=== PATIENT | male | born 1950 | race Caucasian/White ===

== ENCOUNTER → 2017-11-03 11:18 | Outpatient (CLI) | payer OTHER, SELFPAY ==
[2017-11-03 16:18] LABS: Thyroid Stim Hormone (TSH) 2.32 uIU/mL (0.358-3.74)
== END ==
PROVIDERS: Family Provider Family Medicine; PCP Family Medicine; Visit Provider Family Medicine
DX: R53.83 Other fatigue (principal)
CPT/HCPCS: 36415; 84443

== ENCOUNTER → 2018-01-11 10:24 | Outpatient (CLI) | payer OTHER, SELFPAY ==
--- NOTE | 2018-01-11 11:47 | NEURO ---
NCS and/or EMG Patient Report Ordering Doctor: Camilo Marie DATE OF SERVICE: 01/11/18 Milan Ramirez is a 67 year old male who presents for electrodiagnostic testing of the upper limbs. He has chief complaint of numbness and tingling in both hands. Electrodiagnostic findings: Median motor nerve demonstrates normal distal latency, amplitude and conduction velocity bilaterally. Normal ulnar motor response bilaterally, including conduction across the elbow. Prolonged median sensory distal latencies noted bilaterally. Prolonged ulnar sensory latency is noted bilaterally. Normal radial sensory responses. Median ulnar F waves are within normal limits. On needle EMG, all muscles tested in the upper limbs show no evidence of denervation with normal motor unit action potentials. Electrodiagnostic impression: This is an abnormal study in the upper limbs 1. Findings demonstrate bilateral median mononeuropathy. This is consistent with a mild bilateral carpal tunnel syndrome. 2. Findings demonstrate bilateral ulnar sensory neuropathy. 3. No electrodiagnostic evidence is noted for cervical radiculopathy. If there are any further questions, please do not hesitate to contact me.
== END ==
PROVIDERS: Family Provider Family Medicine; PCP Family Medicine; Visit Provider Orthopaedic Surgery
DX: R20.2 Paresthesia of skin (principal)
CPT/HCPCS: 95886; 95913

== ENCOUNTER → 2018-02-16 22:31 | Outpatient (CLI) | payer OTHER, SELFPAY | PROVIDERS: Family Provider Family Medicine; PCP Family Medicine; Visit Provider Family Medicine | DX: G47.30 Sleep apnea, unspecified (principal); R06.83 Snoring | CPT/HCPCS: 95810 ==

== ENCOUNTER → 2018-03-16 22:20 | Outpatient (CLI) | payer OTHER, SELFPAY ==
[2018-03-16] MEDS: Zolpidem Tartrate 5 MG Tablet PO (23:30)
== END ==
PROVIDERS: Family Provider Family Medicine; PCP Family Medicine; Visit Provider Family Medicine
DX: G47.33 Obstructive sleep apnea (adult) (pediatric) (principal)
CPT/HCPCS: 95811

== ENCOUNTER → 2018-05-19 10:05 | Outpatient (CLI) | payer OTHER, SELFPAY ==
--- NOTE | 2018-05-19 10:55 | EKG12_ITS ---
Test Reason : PREOP Blood Pressure : / mmHG Vent. Rate : 051 BPM Atrial Rate : 051 BPM P-R Int : 184 ms QRS Dur : 134 ms QT Int : 466 ms P-R-T Axes : 009 019 037 degrees QTc Int : 429 ms Sinus bradycardia Non-specific intra-ventricular conduction block Nonspecific T wave abnormality Abnormal ECG Confirmed by MAE CORLEY, SUMEET ([id number]), staff editor SHAMAR ELMORE ([id number]) on 05/22/2018 2:56:45 PM Referred By: Tc Austin Confirmed By:SUMEET WALL MD
[2018-05-19 11:02] LABS: Hematocrit 49.1 % (40-54); Hemoglobin 16.1 g/dl (13.0-16.5); Mean Corp Hgb Conc 32.8 g/gl (32-36); Mean Corpuscular Hgb 29.9 pg (27.0-32.0); Mean Corpuscular Volume 91.1 fL (80-94); Mean Platelet Vol. 10.3 fl (6.2-12.0); Platelet Count 170 K/mm3 (150-450); RBC Distribution Width CV 15.3 % (11.6-14.6); Red Blood Count 5.39 M/mm3 (4.6-6.2); White Blood Count 6.2 K/mm3 (4.4-11.0)
[2018-05-19 11:04] LABS: Scan Indicated on CBC? Y/N NO
[2018-05-19 11:21] LABS: Anion Gap 9 (5-15); BUN 18 mg/dL (7-18); BUN/Creat Ratio 15.7 RATIO (10-20); Calcium,Total 8.6 mg/dL (8.5-10.1); Chloride 107 mmol/L (98-107); Creatinine, Serum 1.15 mg/dL (0.70-1.30); EST Glomerular Filtration Rate 67 mL/min (>60); Est Glom Filt Rate - Afr Amer 81 mL/min (>60); Glucose 96 mg/dL (74-106); Sodium Level 143 mmol/L (136-145)
== END ==
PROVIDERS: Family Provider Family Medicine; PCP Family Medicine; Referring Provider Physician Assistant Surgical; Visit Provider Physician Assistant Surgical
DX: Z01.818 Encounter for other preprocedural examination (principal); Z01.811 Encounter for preprocedural respiratory examination; I12.9 Hypertensive chronic kidney disease with stage 1 through stage 4 chronic kidney disease, or unspecified chronic kidney disease; N18.3 Chronic kidney disease, stage 3 (moderate); E78.5 Hyperlipidemia, unspecified; E29.1 Testicular hypofunction; M10.9 Gout, unspecified
CPT/HCPCS: 36415; 80048; 85027; 93005

== ENCOUNTER → 2018-07-17 10:29 | Outpatient (CLI) | payer OTHER, SELFPAY ==
[2018-07-17 12:07] LABS: Absolute Lymphocyte Count 1.67 X10^3/ul (0.83-4.51); Absolute Neutrophil Count 3.5 X10^3/uL (2.0-7.7); Basophil# 0.02 X10^3/uL; Basophil% 0.3 % (0-1); Eosinophil# 0.16 X10^3/uL; Eosinophils% 2.7 % (0-5); Hematocrit 51.3 % (40-54); Lymphocyte # 1.67 X10^3/ul (4.0); Lymphocyte % 28.4 % (19-41); Mean Corp Hgb Conc 33.1 g/gl (32-36); Mean Corpuscular Hgb 30.6 pg (27.0-32.0); Mean Corpuscular Volume 92.4 fL (80-94); Mean Platelet Vol. 10.8 fl (6.2-12.0); Monocyte# 0.47 X10^3/uL; Neutrophil # 3.53 X10^3/uL (2.7-7.7); Neutrophil % 60.3 % (47-70); Platelet Count 195 K/mm3 (150-450); RBC Distribution Width CV 15.3 % (11.6-14.6); RBC Distribution Width SD 51.2 fl (35.1-43.9); Red Blood Count 5.55 M/mm3 (4.6-6.2); White Blood Count 5.9 K/mm3 (4.4-11.0)
[2018-07-17 12:18] LABS: POSITIVE COUNT NO; POSITIVE DIFFERENTIAL NO; POSITIVE MORPHOLOGY NO
[2018-07-17 12:23] LABS: ALB/GLOB Ratio 1.2 RATIO (0.9-2.4); AST(SGOT) 14 U/L (15-37); Alanine Aminotransfer ALT/SGPT 26 U/L (16-61); Albumin, Serum 3.8 g/dL (3.2-5.0); Alkaline Phosphatase 74 U/L (45-117); Anion Gap 5 (5-15); BUN 26 mg/dL (7-18); BUN/Creat Ratio 20.2 RATIO (10-20); Calcium,Total 8.1 mg/dL (8.5-10.1); Chloride 107 mmol/L (98-107); Cholesterol 149 mg/dL (200); Creatinine, Serum 1.29 mg/dL (0.70-1.30); EST Glomerular Filtration Rate 59 mL/min (>60); Est Glom Filt Rate - Afr Amer 71 mL/min (>60); Globulin 3.1 g/dL (2.2-4.2); Glucose 108 mg/dL (74-106); High Density Lipoprotein 35 mg/dL; PSA,Total - Annual Screen 1.56 ng/mL (0.00-4.00); Protein, Total 6.9 g/dL (6.4-8.2); Sodium Level 140 mmol/L (136-145); Thyroid Stim Hormone (TSH) 1.46 uIU/mL (0.358-3.74); Triglycerides 213 mg/dL; Uric Acid 7.1 mg/dL (3.5-7.2); Very Low Density Lipoprotein 43 mg/dL (5-40)
[2018-07-20 14:06] LABS: Testosterone, Free 5.79 ng/dL (5.00-21.00)
[2018-07-20 14:50] LABS: Testosterone, % Free 3.18 % (1.50-4.20); Testosterone, Total 182 ng/dL (264-916)
== END ==
PROVIDERS: Family Provider Family Medicine; PCP Family Medicine; Visit Provider Family Medicine
DX: I12.9 Hypertensive chronic kidney disease with stage 1 through stage 4 chronic kidney disease, or unspecified chronic kidney disease (principal); N18.3 Chronic kidney disease, stage 3 (moderate); E29.1 Testicular hypofunction; E78.5 Hyperlipidemia, unspecified; E03.9 Hypothyroidism, unspecified; M10.9 Gout, unspecified; Z51.81 Encounter for therapeutic drug level monitoring
CPT/HCPCS: 36415; 80053; 80061; 84153; 84402; 84403; 84439; 84443; 84550; 85025; G0103

== ENCOUNTER → 2018-09-22 11:02 | Outpatient (CLI) | payer OTHER, SELFPAY ==
[2018-09-22 14:45] LABS: Absolute Lymphocyte Count 1.49 X10^3/ul (0.83-4.51); Absolute Neutrophil Count 3.9 X10^3/uL (2.0-7.7); Basophil# 0.02 X10^3/uL; Basophil% 0.3 % (0-1); Eosinophil# 0.15 X10^3/uL; Eosinophils% 2.5 % (0-5); Hematocrit 53.4 % (40-54); Hemoglobin 17.9 g/dl (13.0-16.5); Lymphocyte # 1.49 X10^3/ul (4.0); Lymphocyte % 24.4 % (19-41); Mean Corp Hgb Conc 33.5 g/gl (32-36); Mean Corpuscular Hgb 30.7 pg (27.0-32.0); Mean Corpuscular Volume 91.6 fL (80-94); Mean Platelet Vol. 10.9 fl (6.2-12.0); Monocyte% 8.2 % (0-10); Neutrophil # 3.94 X10^3/uL (2.7-7.7); Neutrophil % 64.4 % (47-70); Platelet Count 187 K/mm3 (150-450); RBC Distribution Width CV 15.6 % (11.6-14.6); RBC Distribution Width SD 51.4 fl (35.1-43.9); Red Blood Count 5.83 M/mm3 (4.6-6.2); White Blood Count 6.1 K/mm3 (4.4-11.0)
[2018-09-22 14:46] LABS: POSITIVE COUNT NO; POSITIVE DIFFERENTIAL NO; POSITIVE MORPHOLOGY NO
[2018-09-22 15:03] LABS: Uric Acid 7.2 mg/dL (3.5-7.2)
== END ==
PROVIDERS: Family Provider Family Medicine; PCP Family Medicine; Referring Provider Family Medicine; Visit Provider Family Medicine
DX: M10.9 Gout, unspecified (principal); D58.2 Other hemoglobinopathies
CPT/HCPCS: 36415; 84550; 85025

== ENCOUNTER 2019-05-11 13:44 | Observation (INO) | payer MEDICARE, SELFPAY ==
[2019-05-11 13:51] VITALS: BP 134/85; PULSE 65; RESP 17; TEMP 36.4; O2SAT 95; BMI 45.6
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
[2019-05-11] MEDS: HYDROmorphone 1 MG/ML Syringe SC (15:13)
--- NOTE | 2019-05-11 15:42 | ED.VISSUMM ---
- ER Visit Summary Date of Service: 05/11/19 Chief Complaint: Pain History of Present Illness: The patient is a 68 M who presents with right posterior thigh pain. This happened after mechanical fall today. Pain is worse with movement. No other injuries or complaints. He never had anything like this before. Physical Examination: Vital signs unremarkable. Head and neck are atraumatic. Patient has tenderness to his right posterior thigh, primarily the distal half. There is some mild induration, but I cannot appreciate a definite hematoma or other abnormality. Compartments are soft. Range of motion is intact. He is neurovascular intact distally. Skin appears unremarkable. Test Results: Femur x-rays negative. Emergency Department Course and Treatment: I suspect the patient has a hamstring injury. On reevaluation, the patient was having increasing pain. His right hamstring region seem to be more tender and swollen. I was concerned for hematoma or compartment syndrome. I discussed with orthopedics who advised CT. I checked blood work and a CT. The CT was reviewed by Dr. Gonzalez and by the radiologist. They did not notice anything like a hematoma or any other concerning findings. On reevaluation after 2 doses of Dilaudid, the patient felt better. He would like to try to ambulate. He failed ambulation testing. He was unable to ambulate with help and a walker. He is unsafe to go home. I will contact the hospitalist for further care. Treatment Plan: As above Disposition: Admit Impression: 1. Right hamstring injury This note was generated with [employer] dictation software. It may contain incorrect words, spelling, and punctuation that were not noted in review of the chart prior to signing ED Disposition - Plan for ED Patient: Instructions: MUSCLE STRAIN, Extremity Referrals: Dar Gonzalez DO [STAFF PHYSICIAN] -
--- NOTE | 2019-05-11 15:51 | ED.DEP ---
ED Disposition - Plan for ED Patient: Instructions: MUSCLE STRAIN, Extremity Prescriptions: Oxycodone HCl/Acetaminophen [Percocet 5/325] 1 tab PO Q6H PRN PRN 3 Days #12 tab PRN Reason: Pain Prescription Printed Referrals: Dar Gonzalez DO [STAFF PHYSICIAN] -
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
[2019-05-11 16:29] LABS: Absolute Lymphocyte Count 1.01 X10^3/uL (0.83-4.51); Absolute Neutrophil Count 9.4 X10^3/uL (2.0-7.7); Basophil# 0.04 X10^3/uL; Basophil% 0.4 % (0-1); Eosinophil# 0.06 X10^3/uL; Eosinophils% 0.5 % (0-5); Hematocrit 54.1 % (40-54); Hemoglobin 17.8 g/dL (13.0-16.5); Lymphocyte # 1.01 X10^3/ul (4.0); Mean Corp Hgb Conc 32.9 g/dL (32-36); Mean Corpuscular Hgb 30.3 pg (27.0-32.0); Mean Platelet Vol. 10.1 fl (6.2-12.0); Monocyte# 0.63 X10^3/uL; Monocyte% 5.6 % (0-10); NRBC Flagged by Analyzer 0 % (0-5); Neutrophil # 9.42 X10^3/uL (2.7-7.7); Neutrophil % 84.1 % (47-70); Platelet Count 178 K/mm3 (150-450); RBC Distribution Width CV 14.6 % (11.6-14.6); RBC Distribution Width SD 48.9 fl (35.1-43.9); Red Blood Count 5.88 M/mm3 (4.6-6.2); White Blood Count 11.2 K/mm3 (4.4-11.0)
[2019-05-11] MEDS: HYDROmorphone 1 MG/ML Syringe IV (16:46)
[2019-05-11 16:47] VITALS: BP 124/71; PULSE 55; RESP 20; O2SAT 96
[2019-05-11 17:04] LABS: Anion Gap 2 (5-15); BUN 15 mg/dL (7-18); BUN/Creat Ratio 12.1 RATIO (10-20); Calcium,Total 8.4 mg/dL (8.5-10.1); Chloride 108 mmol/L (98-107); Creatinine, Serum 1.24 mg/dL (0.70-1.30); EST Glomerular Filtration Rate 61 mL/min (>60); Est Glom Filt Rate - Afr Amer 74 mL/min (>60); Estimated Creatinine Clearance 53.63 ml/min; Glucose 101 mg/dL (74-106); Potassium 4.2 mmol/L (3.5-5.1); Sodium Level 139 mmol/L (136-145)
[2019-05-11 17:09] LABS: CPK Total, Creatine Kinase 446 U/L (39-308)
[2019-05-11 19:03] VITALS: BP 112/67; PULSE 56; RESP 17; O2SAT 96
[2019-05-11 19:09] VITALS: BMI 45.6
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
[2019-05-11 19:57] VITALS: BMI 47.0
[2019-05-11 19:59] VITALS: BP 161/80; PULSE 70; RESP 16; TEMP 36.5; O2SAT 95
[2019-05-11 21:19] VITALS: RESP 12
[2019-05-11 21:20] VITALS: O2SAT 94
--- NOTE | 2019-05-11 21:21 | CPS ---
Patient stated that he does not wear oxygen at night with BIPAP.
[2019-05-11] MEDS: 0.9% Normal Saline 1,000 ML 75 ML IV (21:32)
[2019-05-11] MEDS: cycloBENZAPRine HCl 10 MG Tablet 5 MG PO (21:32)
--- NOTE | 2019-05-11 23:02 | CPS ---
pt did not want to go on at this time-nurse aware
[2019-05-11] MEDS: Acetaminophen 325 MG Tablet 650 MG PO (23:25)
[2019-05-11] MEDS: 0.9% NaCl Peripheral Flush Adult/Peds IV (23:25)
[2019-05-12] VITALS (8 sets, daily range): BP systolic 127–139; BP diastolic 74–84; PULSE 61–87; RESP 12–28; TEMP 36.3–37.3; O2SAT 90–95
[2019-05-12] MEDS: cycloBENZAPRine HCl 10 MG Tablet 5 MG PO ×3 (06:12→21:22)
[2019-05-12] MEDS: Levothyroxine 50 MCG Tablet PO (06:13)
[2019-05-12] MEDS: Acetaminophen 325 MG Tablet 650 MG PO ×3 (06:13→18:45)
[2019-05-12] MEDS: oxyCODONE 5 MG Tablet PO ×3 (06:16→17:29)
[2019-05-12 07:00] LABS: CPK Total, Creatine Kinase 926 U/L (39-308)
[2019-05-12] MEDS: Morphine 2 MG/ML Syringe IV (08:30)
[2019-05-12] MEDS: Lisinopril 20 MG Tablet PO (08:30)
[2019-05-12] MEDS: hydroCHLOROthiazide 12.5mg 12.5 MG PO (08:30)
[2019-05-12] MEDS: Citalopram 20 MG Tablet PO (08:30)
[2019-05-12] MEDS: Aspirin 81 MG TAB.CHEW PO (08:30)
[2019-05-12] MEDS: Enoxaparin 40 MG/0.4 ML Syringe SC (08:30)
[2019-05-12] MEDS: 0.9% NaCl Peripheral Flush Adult/Peds IV ×2 (08:31→17:30)
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
--- NOTE | 2019-05-12 15:53 | PCM.HOSP.N ---
Hospitalist Note MRI RLE obtained w/ read reviewed with avulsion of the hamstring musculature from the ischium with extensive hematoma formation. Patient with stable appearing size RLE per discussion with staff. Pain controlled unless active. No CBC, BMP today, given injury with hematomas will discontinue ASA, reassess Hgb levels, obtain repeat AM TKC, add back IVFs given stable pulmonary status and rising TCK level. Discussed case and consulted Dr. Gonzalez will evaluate patient in the AM.
[2019-05-12 16:42] LABS: Absolute Lymphocyte Count 1.55 X10^3/uL (0.83-4.51); Basophil# 0.04 X10^3/uL; Basophil% 0.5 % (0-1); Eosinophil# 0.17 X10^3/uL; Hematocrit 49.6 % (40-54); Hemoglobin 16.1 g/dL (13.0-16.5); Lymphocyte # 1.55 X10^3/ul (4.0); Lymphocyte % 17.9 % (19-41); Mean Corp Hgb Conc 32.5 g/dL (32-36); Mean Corpuscular Volume 92.5 fL (80-94); Mean Platelet Vol. 9.9 fl (6.2-12.0); Monocyte# 0.88 X10^3/uL; Monocyte% 10.2 % (0-10); NRBC Flagged by Analyzer 0 % (0-5); Neutrophil # 5.98 X10^3/uL (2.7-7.7); Neutrophil % 68.9 % (47-70); Platelet Count 167 K/mm3 (150-450); RBC Distribution Width CV 14.6 % (11.6-14.6); RBC Distribution Width SD 49.8 fl (35.1-43.9); Red Blood Count 5.36 M/mm3 (4.6-6.2); White Blood Count 8.7 K/mm3 (4.4-11.0)
[2019-05-12 16:50] LABS: Anion Gap 4 (5-15); BUN 17 mg/dL (7-18); Chloride 109 mmol/L (98-107); Creatinine, Serum 1.21 mg/dL (0.70-1.30); EST Glomerular Filtration Rate 63 mL/min (>60); Est Glom Filt Rate - Afr Amer 76 mL/min (>60); Estimated Creatinine Clearance 54.96 ml/min; Glucose 90 mg/dL (74-106); Potassium 3.8 mmol/L (3.5-5.1); Sodium Level 139 mmol/L (136-145)
[2019-05-12] MEDS: 0.9% Normal Saline 1,000 ML 125 ML IV (17:29)
[2019-05-13] VITALS (8 sets, daily range): BP systolic 130–142; BP diastolic 70–99; PULSE 71–103; RESP 12–28; TEMP 36.9–37.2; O2SAT 93–95
[2019-05-13] MEDS: Acetaminophen 325 MG Tablet 650 MG PO ×5 (00:08→23:40)
[2019-05-13] MEDS: Morphine 2 MG/ML Syringe IV (03:40)
[2019-05-13] MEDS: 0.9% Normal Saline 1,000 ML 125 ML IV (03:43)
[2019-05-13] MEDS: Levothyroxine 50 MCG Tablet PO (05:59)
[2019-05-13] MEDS: cycloBENZAPRine HCl 10 MG Tablet 5 MG PO ×3 (06:01→20:18)
[2019-05-13 06:20] LABS: Absolute Lymphocyte Count 1.34 X10^3/uL (0.83-4.51); Absolute Neutrophil Count 6.7 X10^3/uL (2.0-7.7); Basophil# 0.04 X10^3/uL; Basophil% 0.4 % (0-1); Eosinophil# 0.27 X10^3/uL; Eosinophils% 2.9 % (0-5); Hematocrit 47.9 % (40-54); Hemoglobin 15.4 g/dL (13.0-16.5); Lymphocyte # 1.34 X10^3/ul (4.0); Lymphocyte % 14.6 % (19-41); Mean Corp Hgb Conc 32.2 g/dL (32-36); Mean Corpuscular Hgb 29.7 pg (27.0-32.0); Mean Corpuscular Volume 92.5 fL (80-94); Mean Platelet Vol. 10.6 fl (6.2-12.0); Monocyte# 0.81 X10^3/uL; Monocyte% 8.8 % (0-10); NRBC Flagged by Analyzer 0 % (0-5); Neutrophil # 6.68 X10^3/uL (2.7-7.7); Neutrophil % 72.6 % (47-70); Platelet Count 177 K/mm3 (150-450); RBC Distribution Width CV 14.8 % (11.6-14.6); RBC Distribution Width SD 50.5 fl (35.1-43.9); Red Blood Count 5.18 M/mm3 (4.6-6.2); White Blood Count 9.2 K/mm3 (4.4-11.0)
[2019-05-13 06:54] LABS: Anion Gap 8 (5-15); BUN 17 mg/dL (7-18); BUN/Creat Ratio 13.7 RATIO (10-20); CPK Total, Creatine Kinase 728 U/L (39-308); Calcium,Total 7.8 mg/dL (8.5-10.1); Chloride 107 mmol/L (98-107); Creatinine, Serum 1.24 mg/dL (0.70-1.30); EST Glomerular Filtration Rate 61 mL/min (>60); Est Glom Filt Rate - Afr Amer 74 mL/min (>60); Estimated Creatinine Clearance 53.63 ml/min; Glucose 93 mg/dL (74-106); Potassium 4.2 mmol/L (3.5-5.1); Sodium Level 141 mmol/L (136-145)
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
[2019-05-13] MEDS: hydroCHLOROthiazide 12.5mg 12.5 MG PO (11:03)
[2019-05-13] MEDS: Citalopram 20 MG Tablet PO (11:03)
[2019-05-13] MEDS: Lisinopril 20 MG Tablet PO (11:03)
--- NOTE | 2019-05-13 11:05 | NURSING ---
Pt states he goes by Khanh
[2019-05-14 02:59] VITALS: BP 141/68; PULSE 69; RESP 20; TEMP 36.9; O2SAT 95
[2019-05-14] MEDS: oxyCODONE 5 MG Tablet PO (03:02)
[2019-05-14 03:07] VITALS: RESP 20; O2SAT 95
[2019-05-14 05:50] LABS: Absolute Lymphocyte Count 1.72 X10^3/uL (0.83-4.51); Absolute Neutrophil Count 6.1 X10^3/uL (2.0-7.7); Basophil# 0.05 X10^3/uL; Basophil% 0.6 % (0-1); Eosinophil# 0.34 X10^3/uL; Eosinophils% 3.7 % (0-5); Hematocrit 46.7 % (40-54); Hemoglobin 15.3 g/dL (13.0-16.5); Lymphocyte # 1.72 X10^3/ul (4.0); Lymphocyte % 18.9 % (19-41); Mean Corp Hgb Conc 32.8 g/dL (32-36); Mean Corpuscular Hgb 30.4 pg (27.0-32.0); Mean Corpuscular Volume 92.7 fL (80-94); Mean Platelet Vol. 10.1 fl (6.2-12.0); Monocyte# 0.85 X10^3/uL; Monocyte% 9.4 % (0-10); NRBC Flagged by Analyzer 0 % (0-5); Neutrophil # 6.06 X10^3/uL (2.7-7.7); Neutrophil % 66.6 % (47-70); Platelet Count 186 K/mm3 (150-450); RBC Distribution Width CV 14.7 % (11.6-14.6); RBC Distribution Width SD 49.7 fl (35.1-43.9); Red Blood Count 5.04 M/mm3 (4.6-6.2); White Blood Count 9.1 K/mm3 (4.4-11.0)
[2019-05-14 06:20] LABS: Anion Gap 7 (5-15); BUN 15 mg/dL (7-18); BUN/Creat Ratio 12.1 RATIO (10-20); CPK Total, Creatine Kinase 728 U/L (39-308); Calcium,Total 8.2 mg/dL (8.5-10.1); Chloride 107 mmol/L (98-107); Creatinine, Serum 1.24 mg/dL (0.70-1.30); EST Glomerular Filtration Rate 61 mL/min (>60); Est Glom Filt Rate - Afr Amer 74 mL/min (>60); Estimated Creatinine Clearance 53.63 ml/min; Glucose 94 mg/dL (74-106); Potassium 4.1 mmol/L (3.5-5.1); Sodium Level 143 mmol/L (136-145)
[2019-05-14] MEDS: cycloBENZAPRine HCl 10 MG Tablet 5 MG PO ×3 (06:37→21:58)
[2019-05-14] MEDS: Levothyroxine 50 MCG Tablet PO (06:37)
[2019-05-14] MEDS: Acetaminophen 325 MG Tablet 650 MG PO (06:37)
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
[2019-05-14] MEDS: Lisinopril 20 MG Tablet PO (10:06)
[2019-05-14] MEDS: Citalopram 20 MG Tablet PO (10:06)
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
--- NOTE | 2019-05-14 12:35 | PCM.DC ---
- Discharge Diagnoses Current Active Problems: Current Active and Chronic Problems Hematoma of right lower extremity (Acute) Avulsion of right hamstring muscle (Acute) Intractable pain (Acute) HTN (hypertension) (Chronic) You will use the following diet at home:: Other - Resume previous diet Your food should be the consistency of: Regular Your liquids should be the consistency of: Regular/Thin Discharge Activity: - - Activity as tolerated Call your doctor if you observe: Fever of 101 or Higher, Shortness of breath, Dizziness, Fainting spells, Swelling in the ankles, Chest pain, Uncontrolled pain Instructions: MUSCLE STRAIN, Extremity Additional Instructions: Narcotics cause you to be constipated so I suggest you take Miralax, Metamucil or Citracel daily until you are off narcotics. You need to get up from the chair and ambulate every 1 hour during the day...if you do not the stiffness with get worse and the pain will ultimately be worse. If you need more medication for pain you can call Dr. Palomo for a prescription. Pending Tests on Discharge: none Allergies/Adverse Reactions: Allergies No Known Allergies Allergy (Verified 10/14/15 12:10) Medications to take at Discharge Pravastatin Sodium 40 mg PO DAILY 05/03/14 Lisinopril/Hydrochlorothiazide [Zestoretic 20-12.5 mg Tablet] 1 each PO DAILY 10/07/15 Aspirin [Aspirin, Baby] 81 mg PO DAILY 05/11/19 Citalopram [Celexa] 20 mg PO DAILY 05/11/19 Levothyroxine [Synthroid] 50 mcg PO DAILY 05/11/19 Acetaminophen [Tylenol] 1,000 mg PO Q8 tablet 05/14/19 Oxycodone [Oxyir] 10 mg PO Q4H PRN PRN 7 Days #60 tablet 05/14/19 cycloBENZAPRine HCl [Flexeril] 5 mg PO Q6H PRN PRN #30 tab 05/14/19 The following prescriptions were given: cycloBENZAPRine HCl [Flexeril] 5 mg PO Q6H PRN PRN #30 tab PRN Reason: Muscle Spasm Transmission Status: [facility] Oxycodone [Oxyir] 10 mg PO Q4H PRN PRN 7 Days #60 tablet PRN Reason: Pain Transmission Status: Sent to [facility] Orders to be completed after discharge: Ari Location: None Selected Primary Care Physician: Jay Palomo DO [Primary Care Provider] - Dar Gonzalez DO [STAFF PHYSICIAN] - Please follow up with your Primary Care Physician in: 5 days Test Results: Test results from this visit will be discussed in further detail at your follow-up appointment, if applicable. Proposed Discharge Date: 05/14/19
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
[2019-05-14] MEDS: oxyCODONE 5 MG Tablet 10 MG PO (12:50)
--- NOTE | 2019-05-14 13:42 | CASEMGMT ---
MICA WILEY received script for outpatient therapy. Script placed with discharge instructions and nurse notified. RN SAURABH updated patient regarding script for PT/OT and can make appointment with outpatient therapy of choice.
[2019-05-14] MEDS: Acetaminophen 500 MG Tablet 1000 MG PO ×2 (15:26→21:57)
[2019-05-14] MEDS: Polyethylene Glycol 3350 17 GM PACKET PO (15:28)
[2019-05-14 15:33] VITALS: BP 146/88; PULSE 75; RESP 16; TEMP 36.6; O2SAT 95
--- NOTE | 2019-05-14 15:41 | CHAPLAIN ---
Type of Pastoral Visit _x__ Initial Visit ___ Follow-up Visit ___ On-call Visit ___ General Patient Visit ___ Spiritual Assessment ___ Family Conference ___ Bereavement ___ Rapid Response ___ Code Blue ___ Other (describe below) Pastoral Care Referral From _x__ Patient ___ Family ___ Nurse ___ Physician ___ Field Marketing Coordinator ___ Traffic Control Signaler ___ Other (describe below) Sacrament/Intervention _x__ Active listening ___ Anointing ___ Yazidi ___ Bereavement ___ Communion ___ Elsa exploration ___ _x__ Life review _x__ Prayer ___ Reconciliation ___ Sacrament of Sick _x__ Supportive presence ___ Wedding ___ Other (describe below) Pastoral Comments
--- NOTE | 2019-05-14 16:52 | CASEMGMT ---
Case Management Progress Note: SCOTT form explained and reviewed with patient in regards to his treatment. Notified and aware that Outpatient billing is determined by his insurance and status during hospital stay is reviewed for changes in his condition that may warrant Inpatient stay. Denies any questions/concerns. Signed copy placed in patient chart, copy given to patient. Provided patient with a list of [facility]-Network SNF for [facility]. States first preference is [facility]. Does not have a second preference at this time and will look over list further to determine second choice if first choice cannot take him. Side Panel Hanger Mackenzie Decker updated and made aware. Deneen, MICACM
--- NOTE | 2019-05-14 17:14 | CASEMGMT ---
Social Work Note RN updated this worker that pt feels he is not able to discharge home and would like SNF placement. RN SAURABH Macdonald spoke with pt regarding SNF and pt's first choice is TCU. SW called referral line and left message regarding referral. Plan: SNF pending acceptance and pre-cert Mackenzie Vasquez [employer] ROLL COVERER, DIRECTOR [employer]
[2019-05-14] MEDS: Lactated Ringers 1,000 ML 125 ML IV (17:57)
[2019-05-14 21:36] VITALS: BP 154/82; PULSE 67; RESP 24; TEMP 37.2; O2SAT 94
[2019-05-14 21:45] VITALS: PULSE 64
--- NOTE | 2019-05-14 21:56 | NURSING ---
Pt refuses to have bed exit on since he is sitting at the bed and using urinal throughout the night.
[2019-05-15 00:25] VITALS: PULSE 68; RESP 12; RESP 21; O2SAT 93
[2019-05-15] MEDS: Lactated Ringers 1,000 ML 125 ML IV (02:00)
[2019-05-15 02:56] VITALS: PULSE 72; RESP 12; RESP 31; O2SAT 94
[2019-05-15 03:00] VITALS: BP 143/87; PULSE 66; RESP 20; TEMP 36.8; O2SAT 93
[2019-05-15 05:37] VITALS: PULSE 73; RESP 12; RESP 32; O2SAT 93
[2019-05-15 06:05] LABS: ALB/GLOB Ratio 0.9 RATIO (0.9-2.4); AST(SGOT) 27 U/L (15-37); Alanine Aminotransfer ALT/SGPT 19 U/L (16-61); Albumin, Serum 2.9 g/dL (3.2-5.0); Alkaline Phosphatase 64 U/L (45-117); Anion Gap 7 (5-15); BUN 15 mg/dL (7-18); BUN/Creat Ratio 13.3 RATIO (10-20); CPK Total, Creatine Kinase 546 U/L (39-308); Calcium,Total 8.3 mg/dL (8.5-10.1); Chloride 105 mmol/L (98-107); Creatinine, Serum 1.13 mg/dL (0.70-1.30); EST Glomerular Filtration Rate 68 mL/min (>60); Est Glom Filt Rate - Afr Amer 82 mL/min (>60); Estimated Creatinine Clearance 58.85 ml/min; Globulin 3.2 g/dL (2.2-4.2); Glucose 98 mg/dL (74-106); Phosphorus 2.9 mg/dL (2.5-4.9); Potassium 4.1 mmol/L (3.5-5.1); Protein, Total 6.1 g/dL (6.4-8.2); Sodium Level 141 mmol/L (136-145)
[2019-05-15] MEDS: Acetaminophen 500 MG Tablet 1000 MG PO ×2 (06:08→14:38)
[2019-05-15] MEDS: cycloBENZAPRine HCl 10 MG Tablet 5 MG PO ×2 (06:08→14:38)
[2019-05-15] MEDS: Levothyroxine 50 MCG Tablet PO (06:08)
[2019-05-15 08:20] VITALS: BP 161/93; PULSE 55; RESP 18; TEMP 36.6; O2SAT 93
[2019-05-15] MEDS: Lisinopril 20 MG Tablet PO (08:25)
[2019-05-15] MEDS: Citalopram 20 MG Tablet PO (08:25)
[2019-05-15] MEDS: Polyethylene Glycol 3350 17 GM PACKET PO (08:25)
--- NOTE | 2019-05-15 10:43 | CASEMGMT ---
Addendum entered by Mackenzie Vasquez 05/15/19 15:31: CINDY received call from Rosario in TCU who states pre-cert has been obtained and pt can discharge to TCU today. Physician updated. SW updated pt and pt's on approval to go to TCU and discharge today. Plan: TCU today HERMILA Barragan Addendum entered by Mackenzie Vasquez 05/15/19 11:12: CINDY received call from Rosario in TCU stating she does have beds available and is able to accept pt. CINDY informed Rosario that pt is in observation and because he is in observation, this worker doesn't have to submit for LOC and that TCU just needs to submit for pre-cert. Rosario states she will submit for pre-cert. CINDY updated pt on acceptance to TCU pending pre-cert. Pt states understanding. Plan: TCU pending pre-cert HERMILA Barragan Original Note: Social Work Note CINDY received message from Nohemi with TCU stating she is checking on beds and will let this worker know when she knows about bed availability on TCU. Plan: SNF pending acceptance and pre-cert HERMILA Barragan
[2019-05-15 14:40] VITALS: BP 142/87; PULSE 69; RESP 18; TEMP 36.9; O2SAT 97
[2019-05-15] MEDS: oxyCODONE 5 MG Tablet 10 MG PO (15:02)
--- NOTE | 2019-05-15 15:38 | PCM.TXEXTCAR ---
- Diet 05/11/19 20:11 Diet: Regular Diet Food consistency:: Regular Liquid Consistency:: Regular/Thin Is pt able to select menu?: Yes - Routine Orders/Code Status Enema Type: Fleetz Enema Frequency: Daily PRN Suppository Type: Dulcolax 10mg Suppository Frequency: Daily PRN O2 Liters per Minute: 1-2 O2 Frequency: PRN Keep PO Greater than or Equal to (%): 90 Code Status: Full Code - Wound(s) left leg Wound Type: Abrasion - Therapies Weight Bearing: Weight bearing as tolerated Extremity Affected:: Right Lower Physical Therapy: Eval and Treat Occupational Therapy: Eval and Treat - Problem/Diagnosis (1) Traumatic rhabdomyolysis Status: Acute Comment: mild Current Visit: Yes (2) Morbid (severe) obesity due to excess calories Status: Chronic Current Visit: Yes (3) Hyperlipidemia Status: Chronic Current Visit: Yes (4) Hypothyroidism Status: Chronic Current Visit: Yes (5) Chronic renal failure, stage 2 (mild) Status: Chronic Current Visit: Yes (6) Obstructive sleep apnea Status: Chronic Current Visit: Yes (7) Anxiety and depression Status: Chronic Current Visit: Yes (8) Dehydration Status: Acute Current Visit: Yes (9) Intractable pain Status: Acute Current Visit: Yes (10) HTN (hypertension) Status: Chronic Current Visit: Yes (11) Avulsion of right hamstring muscle Status: Acute Comment: Traumatic Current Visit: No (12) Hematoma of right lower extremity Status: Acute Current Visit: No - Allergies/Procedures Done in Hospital Allergies/Adverse Reactions: Allergies No Known Allergies Allergy (Verified 10/14/15 12:10) Procedures: None - Type of Care/Length of Stay Estimated LOS: Convalescent Care Less Than 30 days Type of Care Needed: Skilled Rehab Potential: Good Prognosis: Good - Additional Orders/Day of Discharge H&P will serve as current which was dated: 05/11/19 Day of Discharge: 05/15/19 - Follow Up Care Primary Care Physician: Dar Gonzalez DO [STAFF PHYSICIAN] - Jay Palomo DO [Primary Care Provider] - Please follow up with your Primary Care Physician in: Following discharge from TCU
--- NOTE | 2019-05-15 16:08 | NURSING ---
report given to MICA Cramer on TCU for discharge.
== END 2019-05-15 17:50 | disposition skilled nursing facility (03) ==
LOC: ED 14:56 → MS3 19:29
PROVIDERS: Family Medicine; Admitting Provider Hospitalist; Emergency Provider Emergency Medicine; Family Provider Family Medicine; PCP Family Medicine; Visit Provider Internal Medicine
DX: T79.6XXA Traumatic ischemia of muscle, initial encounter (principal); S76.891A Other injury of other specified muscles, fascia and tendons at thigh level, right thigh, initial encounter; V00.831A Fall from motorized mobility scooter, initial encounter; Y93.89 Activity, other specified; Y92.89 Other specified places as the place of occurrence of the external cause; E66.01 Morbid (severe) obesity due to excess calories; G47.33 Obstructive sleep apnea (adult) (pediatric); I12.9 Hypertensive chronic kidney disease with stage 1 through stage 4 chronic kidney disease, or unspecified chronic kidney disease; N18.2 Chronic kidney disease, stage 2 (mild); E03.9 Hypothyroidism, unspecified; F41.9 Anxiety disorder, unspecified; F32.9 Major depressive disorder, single episode, unspecified; Z68.42 Body mass index [BMI] 45.0-49.9, adult; Z71.3 Dietary counseling and surveillance; Z79.899 Other long term (current) drug therapy; Z79.82 Long term (current) use of aspirin; Z87.891 Personal history of nicotine dependence; E86.0 Dehydration
CPT/HCPCS: 36415; 73552; 73701; 73718; 80048; 80053; 82550; 83735; 84100; 85025; 94002; 94003; 96361; 96372; 96374; 96375; 96376; 97110; 97116; 97162; 97165; 97530; 99218; 99285; J7030; J7120; Q9967; A4216; G0378

== ENCOUNTER 2019-05-15 18:26 | Inpatient (IN) | payer MEDICARE, SELFPAY ==
[2019-05-15 18:26] VITALS: BMI 45.6
[2019-05-15 18:29] VITALS: BP 167/88; PULSE 75; RESP 20; TEMP 36.3; O2SAT 93
[2019-05-15 20:01] VITALS: PULSE 61; O2SAT 93
[2019-05-15 20:17] VITALS: BMI 47.4
[2019-05-15 20:21] VITALS: BMI 47.0
[2019-05-15] MEDS: Acetaminophen 500 MG Tablet 1000 MG PO (21:06)
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
[2019-05-16 00:30] VITALS: PULSE 68; RESP 12; RESP 32; O2SAT 93
[2019-05-16 03:30] VITALS: PULSE 70; RESP 12; RESP 28; O2SAT 93
[2019-05-16 05:56] LABS: Absolute Lymphocyte Count 1.27 X10^3/uL (0.83-4.51); Absolute Neutrophil Count 5.9 X10^3/uL (2.0-7.7); Basophil# 0.05 X10^3/uL; Basophil% 0.6 % (0-1); Eosinophil# 0.27 X10^3/uL; Eosinophils% 3.3 % (0-5); Hematocrit 46.4 % (40-54); Hemoglobin 15.1 g/dL (13.0-16.5); Lymphocyte # 1.27 X10^3/ul (4.0); Lymphocyte % 15.5 % (19-41); Mean Corp Hgb Conc 32.5 g/dL (32-36); Mean Corpuscular Hgb 30.1 pg (27.0-32.0); Mean Corpuscular Volume 92.6 fL (80-94); Mean Platelet Vol. 9.8 fl (6.2-12.0); Monocyte# 0.69 X10^3/uL; Monocyte% 8.4 % (0-10); NRBC Flagged by Analyzer 0 % (0-5); Neutrophil # 5.85 X10^3/uL (2.7-7.7); Neutrophil % 71.7 % (47-70); Platelet Count 207 K/mm3 (150-450); RBC Distribution Width CV 14.9 % (11.6-14.6); RBC Distribution Width SD 50.4 fl (35.1-43.9); Red Blood Count 5.01 M/mm3 (4.6-6.2); White Blood Count 8.2 K/mm3 (4.4-11.0)
[2019-05-16] MEDS: Polyethylene Glycol 3350 17 GM PACKET PO (06:15)
[2019-05-16] MEDS: Pravastatin 40 MG Tablet PO (06:15)
[2019-05-16] MEDS: Citalopram 20 MG Tablet PO (06:15)
[2019-05-16] MEDS: Acetaminophen 500 MG Tablet 1000 MG PO ×3 (06:15→20:59)
[2019-05-16] MEDS: Lisinopril 20 MG Tablet PO ×2 (06:15→17:30)
[2019-05-16] MEDS: Bisacodyl 5 MG Tablet 10 MG PO (06:15)
[2019-05-16] MEDS: Levothyroxine 50 MCG Tablet PO (06:15)
[2019-05-16 06:16] LABS: Anion Gap 5 (5-15); BUN 14 mg/dL (7-18); Calcium,Total 8.5 mg/dL (8.5-10.1); Chloride 104 mmol/L (98-107); Creatinine, Serum 1.17 mg/dL (0.70-1.30); EST Glomerular Filtration Rate 65 mL/min (>60); Est Glom Filt Rate - Afr Amer 79 mL/min (>60); Estimated Creatinine Clearance 56.84 ml/min; Glucose 95 mg/dL (74-106); Potassium 3.8 mmol/L (3.5-5.1); Sodium Level 140 mmol/L (136-145)
[2019-05-16 07:15] VITALS: O2SAT 94
[2019-05-16] MEDS: oxyCODONE 5 MG Tablet 10 MG PO ×3 (09:55→20:08)
[2019-05-16] MEDS: Aspirin 81 MG TAB.CHEW PO (09:56)
--- NOTE | 2019-05-16 10:00 | NURSING ---
New order per Dr. Sahu for magnesium citrate x1 dose now. Per pt request he would like to take after his therapy this afternoon d/t side effects medication may have. Ciarra NINO notified of pts request.
[2019-05-16] MEDS: Tuberculin,Purif.prot.deriv. 50 TU/ML Vial 5 ML ID (10:31)
--- NOTE | 2019-05-16 14:55 | PHA.CONS_ITS ---
<Linette Castellano - Last Filed: 05/16/19 14:55> Progress Note - Pharmacy Subjective: TCU Admission Objective: Allergies No Known Allergies Allergy (Verified 10/14/15 12:10) Current Medications Generic Name Dose Route Start Last Admin Trade Name Freq PRN Reason Stop Dose Admin Acetaminophen 1,000 mg 05/15/19 22:00 05/16/19 14:06 Tylenol PO 1,000 mg Q8 JAYMIE Administration Aspirin 81 mg 05/16/19 08:00 05/16/19 09:56 Aspirin, Baby PO 81 mg DAILY@0800 JAYMIE Administration Bisacodyl 10 mg 05/16/19 06:00 05/16/19 06:15 Dulcolax PO 10 mg DAILY JAYMIE Administration Citalopram Hydrobromide 20 mg 05/16/19 06:00 05/16/19 06:15 Celexa PO 20 mg DAILY JAYMIE Administration Cyclobenzaprine HCl 5 mg 05/15/19 18:53 Cyclobenzaprine Hcl PO Q6H PRN PRN MUSCLE SPASM Levothyroxine Sodium 50 mcg 05/16/19 06:00 05/16/19 06:15 Synthroid PO 50 mcg DAILY JAYMIE Administration Lisinopril 20 mg 05/16/19 06:00 05/16/19 06:15 Zestril PO 20 mg BID JAYMIE Administration Oxycodone HCl 10 mg 05/15/19 18:53 05/16/19 14:07 Oxyir PO 10 mg Q4H PRN PRN Administration Pain Score 1-10/10 Polyethylene Glycol 17 gm 05/16/19 06:00 05/16/19 06:15 Miralax PO 17 gm DAILY JAYMIE Administration Pravastatin Sodium 40 mg 05/16/19 06:00 05/16/19 06:15 Pravachol PO 40 mg DAILY [facility] Administration Senna/Docusate Sodium 2 tablet 05/15/19 18:53 Senokot-S, Myla-Colace PO BID PRN PRN Constipation Tuberculin PPD 5 tu 05/23/19 10:00 Tubersol, Aplisol, Ppd ID 05/23/19 10:01 X1 ONE Problem List Debility (Acute) Fall (Acute) Sleep apnea (Chronic) Rhabdomyolysis (Chronic) Vital Signs Temp Pulse Resp BP Pulse Ox 97.4 F L 70 28 H 167/88 H 94 05/15/19 18:29 09/25/19 03:30 05/16/19 03:30 05/15/19 18:29 05/16/19 07:15 Oxygen Delivery Method Room Air Weight: 141.4 kg Body Mass Index (BMI) 47.4 Sodium 140 mmol/L (136-145) 05/16/19 05:15 Potassium 3.8 mmol/L (3.5-5.1) 05/16/19 05:15 Chloride 104 mmol/L (98-107) 05/16/19 05:15 Carbon Dioxide 31.0 mmol/L (21.0-32.0) 05/16/19 05:15 Anion Gap 5 (5-15) 05/16/19 05:15 BUN 14 mg/dL (7-18) 05/16/19 05:15 Creatinine 1.17 mg/dL (0.70-1.30) 05/16/19 05:15 Est GFR (MDRD) Af Amer 79 mL/min (>60) 05/16/19 05:15 Est GFR (MDRD) Non-Af 65 mL/min (>60) 05/16/19 05:15 BUN/Creatinine Ratio 12.0 RATIO (10-20) 05/16/19 05:15 Glucose 95 mg/dL (74-106) 05/16/19 05:15 Assessment/Plan: 1. Pain: acetaminophen 1000mg PO Q8H and oxycodone 10mg PO Q4H PRN pain (1- 10/10). Please continue to monitor for increased pain, constipation and respiratory depression. 2. Hypertension: lisinopril 20mg PO BID. Please continue to monitor renal function, potassium and BP. 3. Hyperlipidemia: pravastatin 40mg PO QHS. Last lipid panel within the last year and LFTs WNL. Please continue to monitor for muscle pain. 4. DVT prophylaxis: aspirin 81mg PO daily. Please continue to monitor for S/S of bleeding and/or DVT. 5. Hypothyroidism: levothyroxine 50mcg PO daily. Last TSH within the last year. Please continue to monitor for S/S hypo/hyperthyroidism. 6. Muscle spasm: cyclobenzaprine 5mg PO Q6H PRN muscle spasms. Please continue to monitor for muscle spasms and PRN usage. Psychotropic Medications: 1. Depression: citalopram 20mg PO daily. Please consider GDR 10/2019. Unnecessary Medications: None Bowel Regimen: Miralax 17gm PO daily, senna/docusate 2T PO BID PRN constipation, bisacodyl 10mg PO daily. Please continue to monitor for constipation/diarrhea and PRN usage. Date of Note:: 05/16/19 - Provider Comments Provider responsibility: Provider responsible to enter orders to implement recommendations <Jayro Sahu Chi - Last Filed: 05/16/19 17:02> Progress Note - Pharmacy Subjective: [] Objective: Allergies No Known Allergies Allergy (Verified 10/14/15 12:10) Current Medications Generic Name Dose Route Start Last Admin Trade Name Freq PRN Reason Stop Dose Admin Acetaminophen 1,000 mg 05/15/19 22:00 05/16/19 14:06 Tylenol PO 1,000 mg Q8 JAYMIE Administration Aspirin 81 mg 05/16/19 08:00 05/16/19 09:56 Aspirin, Baby PO 81 mg DAILY@0800 JAYMIE Administration Bisacodyl 10 mg 05/16/19 06:00 05/16/19 06:15 Dulcolax PO 10 mg DAILY JAYMIE Administration Citalopram Hydrobromide 20 mg 05/16/19 06:00 05/16/19 06:15 Celexa PO 20 mg DAILY JAYMIE Administration Cyclobenzaprine HCl 5 mg 05/15/19 18:53 05/16/19 16:08 Cyclobenzaprine Hcl PO 5 mg Q6H PRN PRN Administration MUSCLE SPASM Levothyroxine Sodium 50 mcg 05/16/19 06:00 05/16/19 06:15 Synthroid PO 50 mcg DAILY JAYMIE Administration Lisinopril 20 mg 05/16/19 06:00 05/16/19 06:15 Zestril PO 20 mg BID JAYMIE Administration Oxycodone HCl 10 mg 05/15/19 18:53 05/16/19 14:07 Oxyir PO 10 mg Q4H PRN PRN Administration Pain Score 1-10/10 Polyethylene Glycol 17 gm 05/16/19 06:00 05/16/19 06:15 Miralax PO 17 gm DAILY JAYMIE Administration Pravastatin Sodium 40 mg 05/16/19 06:00 05/16/19 06:15 Pravachol PO 40 mg DAILY JAYMIE Administration Senna/Docusate Sodium 2 tablet 05/15/19 18:53 Senokot-S, Myla-Colace PO BID PRN PRN Constipation Tuberculin PPD 5 tu 05/23/19 10:00 Tubersol, Aplisol, Ppd ID 05/23/19 10:01 X1 ONE Problem List Debility (Acute) Fall (Acute) Sleep apnea (Chronic) Rhabdomyolysis (Chronic) Vital Signs Temp Pulse Resp BP Pulse Ox 97.4 F L 70 28 H 167/88 H 94 05/15/19 18:29 05/16/19 03:30 05/16/19 03:30 05/15/19 18:29 05/16/19 07:15 Oxygen Delivery Method Room Air Weight: 141.4 kg Body Mass Index (BMI) 47.4 Sodium 140 mmol/L (136-145) 05/16/19 05:15 Potassium 3.8 mmol/L (3.5-5.1) 05/16/19 05:15 Chloride 104 mmol/L (98-107) 05/16/19 05:15 Carbon Dioxide 31.0 mmol/L (21.0-32.0) 05/16/19 05:15 Anion Gap 5 (5-15) 05/16/19 05:15 BUN 14 mg/dL (7-18) 05/16/19 05:15 Creatinine 1.17 mg/dL (0.70-1.30) 05/16/19 05:15 Est GFR (MDRD) Af Amer 79 mL/min (>60) 05/16/19 05:15 Est GFR (MDRD) Non-Af 65 mL/min (>60) 05/16/19 05:15 BUN/Creatinine Ratio 12.0 RATIO (10-20) 05/16/19 05:15 Glucose 95 mg/dL (74-106) 05/16/19 05:15 Assessment/Plan: Psychotropic Medications: Unnecessary Medications: Bowel Regimen: - Provider Comments Provider responsibility: Provider responsible to enter orders to implement recommendations Provider Comments to Recommendations by Pharmacy: Agree
[2019-05-16 16:00] VITALS: BP 157/85; PULSE 75; RESP 20; TEMP 36.4; O2SAT 93
[2019-05-16] MEDS: cycloBENZAPRine HCl 5 MG TABLET PO (16:08)
[2019-05-16 22:30] VITALS: PULSE 72; RESP 12; RESP 18; O2SAT 93
[2019-05-17 01:30] VITALS: PULSE 70; RESP 12; RESP 32; O2SAT 93
[2019-05-17 03:57] VITALS: PULSE 82; RESP 12; RESP 28; O2SAT 93
[2019-05-17] MEDS: Pravastatin 40 MG Tablet PO (05:00)
[2019-05-17] MEDS: Levothyroxine 50 MCG Tablet PO (05:00)
[2019-05-17] MEDS: Lisinopril 20 MG Tablet PO ×2 (05:00→17:24)
[2019-05-17] MEDS: Bisacodyl 5 MG Tablet 10 MG PO (05:00)
[2019-05-17] MEDS: Citalopram 20 MG Tablet PO (05:00)
[2019-05-17] MEDS: Nystatin Powder 15gm Bottle 1 APPLIC TOPICAL ×2 (05:00→20:46)
[2019-05-17] MEDS: Acetaminophen 500 MG Tablet 1000 MG PO ×3 (05:00→20:51)
[2019-05-17] MEDS: Polyethylene Glycol 3350 17 GM PACKET PO (05:01)
[2019-05-17] MEDS: oxyCODONE 5 MG Tablet 10 MG PO ×2 (06:49→11:48)
[2019-05-17] MEDS: Aspirin 81 MG TAB.CHEW PO (08:18)
[2019-05-17 15:38] VITALS: BP 151/76; PULSE 82; RESP 20; TEMP 37.1; O2SAT 94
[2019-05-17 23:05] VITALS: PULSE 80; RESP 12; RESP 28; O2SAT 92
[2019-05-18 02:00] VITALS: PULSE 84; RESP 12; RESP 22; O2SAT 94
[2019-05-18] MEDS: Lisinopril 20 MG Tablet PO ×2 (05:26→17:46)
[2019-05-18] MEDS: Levothyroxine 50 MCG Tablet PO (05:26)
[2019-05-18] MEDS: Acetaminophen 500 MG Tablet 1000 MG PO ×3 (05:26→21:15)
[2019-05-18] MEDS: Citalopram 20 MG Tablet PO (05:26)
[2019-05-18] MEDS: Pravastatin 40 MG Tablet PO (05:26)
[2019-05-18] MEDS: Nystatin Powder 15gm Bottle 1 APPLIC TOPICAL ×2 (05:29→21:15)
[2019-05-18] MEDS: cycloBENZAPRine HCl 5 MG TABLET PO ×2 (05:32→14:23)
[2019-05-18] MEDS: Aspirin 81 MG TAB.CHEW PO (08:01)
[2019-05-18] MEDS: oxyCODONE 5 MG Tablet 10 MG PO (08:02)
[2019-05-18 16:00] VITALS: BP 129/79; PULSE 73; RESP 20; TEMP 36.7; O2SAT 91
[2019-05-19 00:33] VITALS: PULSE 70; RESP 12; RESP 28; O2SAT 94
[2019-05-19 04:20] VITALS: PULSE 67; RESP 12; RESP 32; O2SAT 94
[2019-05-19] MEDS: Levothyroxine 50 MCG Tablet PO (05:58)
[2019-05-19] MEDS: Nystatin Powder 15gm Bottle 1 APPLIC TOPICAL ×2 (05:58→20:31)
[2019-05-19] MEDS: Pravastatin 40 MG Tablet PO (05:58)
[2019-05-19] MEDS: Acetaminophen 500 MG Tablet 1000 MG PO ×3 (05:58→21:01)
[2019-05-19] MEDS: Citalopram 20 MG Tablet PO (05:58)
[2019-05-19] MEDS: Lisinopril 20 MG Tablet PO ×2 (05:58→17:39)
[2019-05-19] MEDS: Bisacodyl 5 MG Tablet 10 MG PO (05:58)
[2019-05-19] MEDS: oxyCODONE 5 MG Tablet 10 MG PO ×2 (06:01→10:14)
[2019-05-19] MEDS: Aspirin 81 MG TAB.CHEW PO (08:36)
[2019-05-19 15:43] VITALS: BP 140/76; PULSE 70; RESP 20; TEMP 36.4; O2SAT 92
[2019-05-20 01:05] VITALS: PULSE 67; RESP 12; RESP 17; O2SAT 94
[2019-05-20] MEDS: oxyCODONE 5 MG Tablet 10 MG PO ×4 (01:12→20:34)
[2019-05-20] MEDS: Pravastatin 40 MG Tablet PO (06:00)
[2019-05-20] MEDS: Acetaminophen 500 MG Tablet 1000 MG PO ×3 (06:00→20:59)
[2019-05-20] MEDS: Levothyroxine 50 MCG Tablet PO (06:00)
[2019-05-20] MEDS: Lisinopril 20 MG Tablet PO ×2 (06:00→17:23)
[2019-05-20] MEDS: Citalopram 20 MG Tablet PO (06:00)
[2019-05-20] MEDS: Nystatin Powder 15gm Bottle 1 APPLIC TOPICAL ×2 (06:00→20:35)
[2019-05-20] MEDS: Aspirin 81 MG TAB.CHEW PO (08:08)
[2019-05-20 12:28] VITALS: PULSE 82; RESP 18; O2SAT 96
[2019-05-20 15:40] VITALS: BP 133/95; PULSE 66; RESP 20; TEMP 35.8; O2SAT 94
[2019-05-21 00:30] VITALS: PULSE 68; RESP 12; RESP 18; O2SAT 95
[2019-05-21 03:30] VITALS: PULSE 67; RESP 12; RESP 22; O2SAT 94
[2019-05-21] MEDS: Citalopram 20 MG Tablet PO (05:41)
[2019-05-21] MEDS: Levothyroxine 50 MCG Tablet PO (05:41)
[2019-05-21] MEDS: Lisinopril 20 MG Tablet PO ×2 (05:41→17:52)
[2019-05-21] MEDS: Polyethylene Glycol 3350 17 GM PACKET PO (05:41)
[2019-05-21] MEDS: Pravastatin 40 MG Tablet PO (05:41)
[2019-05-21] MEDS: Acetaminophen 500 MG Tablet 1000 MG PO ×3 (05:41→19:45)
[2019-05-21] MEDS: Nystatin Powder 15gm Bottle 1 APPLIC TOPICAL ×2 (05:41→19:46)
[2019-05-21] MEDS: oxyCODONE 5 MG Tablet 10 MG PO ×2 (05:45→17:51)
[2019-05-21] MEDS: Aspirin 81 MG TAB.CHEW PO (07:56)
--- NOTE | 2019-05-21 14:05 | MDS.RN ---
Pain interview for TORIE 05/21/19 completed, unable to document in the MDS per information systems instructions
[2019-05-21 15:34] VITALS: BP 145/86; PULSE 75; RESP 19; TEMP 36.8; O2SAT 95
--- NOTE | 2019-05-21 15:45 | CHAPLAIN ---
Type of Pastoral Visit ___ Initial Visit _x__ Follow-up Visit ___ On-call Visit ___ General Patient Visit ___ Spiritual Assessment ___ Family Conference ___ Bereavement ___ Rapid Response ___ Code Blue ___ Other (describe below) Pastoral Care Referral From _x__ Patient ___ Family ___ Nurse ___ Physician ___ Networking Technology Instructor ___ Engineer Remote Control Diesel ___ Other (describe below) Sacrament/Intervention _x__ Active listening ___ Anointing ___ Bahai ___ Bereavement ___ Communion ___ Elsa exploration ___ ___ Life review ___ Prayer ___ Reconciliation ___ Sacrament of Sick ___ Supportive presence ___ Wedding ___ Other (describe below) Pastoral Comments
[2019-05-22 00:07] VITALS: PULSE 75; RESP 12; RESP 28; O2SAT 95
[2019-05-22] MEDS: oxyCODONE 5 MG Tablet 10 MG PO ×3 (03:36→23:19)
--- NOTE | 2019-05-22 03:56 | CPS ---
PT HAVING CRAMPS IN LEGS-DID NOT WANT TO PUT BACK ON
[2019-05-22 05:45] LABS: Absolute Lymphocyte Count 1.39 X10^3/uL (0.83-4.51); Absolute Neutrophil Count 4.9 X10^3/uL (2.0-7.7); Basophil# 0.05 X10^3/uL; Basophil% 0.7 % (0-1); Eosinophil# 0.35 X10^3/uL; Eosinophils% 4.7 % (0-5); Hemoglobin 14.8 g/dL (13.0-16.5); Lymphocyte # 1.39 X10^3/ul (4.0); Lymphocyte % 18.6 % (19-41); Mean Corp Hgb Conc 32.2 g/dL (32-36); Mean Corpuscular Hgb 29.1 pg (27.0-32.0); Mean Corpuscular Volume 90.4 fL (80-94); Mean Platelet Vol. 9.4 fl (6.2-12.0); Monocyte# 0.77 X10^3/uL; Monocyte% 10.3 % (0-10); NRBC Flagged by Analyzer 0 % (0-5); Neutrophil # 4.87 X10^3/uL (2.7-7.7); Platelet Count 272 K/mm3 (150-450); RBC Distribution Width CV 14.7 % (11.6-14.6); RBC Distribution Width SD 49.1 fl (35.1-43.9); Red Blood Count 5.09 M/mm3 (4.6-6.2); White Blood Count 7.5 K/mm3 (4.4-11.0)
[2019-05-22 05:48] LABS: Anion Gap 5 (5-15); BUN 23 mg/dL (7-18); BUN/Creat Ratio 19.8 RATIO (10-20); Calcium,Total 8.4 mg/dL (8.5-10.1); Chloride 109 mmol/L (98-107); Creatinine, Serum 1.16 mg/dL (0.70-1.30); EST Glomerular Filtration Rate 66 mL/min (>60); Est Glom Filt Rate - Afr Amer 80 mL/min (>60); Estimated Creatinine Clearance 57.33 ml/min; Glucose 97 mg/dL (74-106); Potassium 4.1 mmol/L (3.5-5.1); Sodium Level 141 mmol/L (136-145)
[2019-05-22] MEDS: Levothyroxine 50 MCG Tablet PO (05:48)
[2019-05-22] MEDS: Pravastatin 40 MG Tablet PO (05:48)
[2019-05-22] MEDS: Citalopram 20 MG Tablet PO (05:48)
[2019-05-22] MEDS: Lisinopril 20 MG Tablet PO ×2 (05:48→18:02)
[2019-05-22] MEDS: Acetaminophen 500 MG Tablet 1000 MG PO ×3 (05:48→21:13)
[2019-05-22] MEDS: Bisacodyl 5 MG Tablet 10 MG PO (05:49)
[2019-05-22] MEDS: Nystatin Powder 15gm Bottle 1 APPLIC TOPICAL ×2 (05:50→21:18)
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
[2019-05-22] MEDS: Aspirin 81 MG TAB.CHEW PO (08:07)
[2019-05-22 09:30] VITALS: PULSE 84; RESP 18; O2SAT 92
[2019-05-22 16:00] VITALS: BP 128/76; PULSE 67; RESP 20; TEMP 36.6; O2SAT 94
--- NOTE | 2019-05-22 16:03 | CASEMGMT ---
Social Work Spoke with pt and about insurance issuing LCD 05/24, DC home 05/25. Pt agreeable. Pt denies any HHC/outpatient needs. Interested in trapeze. John looking into information for qualifying dx and insurance coverage. Care plan meeting tomorrow to further discussed DC needs. Plan: DC home with 05/25. no needs. Nolvia Castle, BACKEND TESTER SECRETARY BOOK KEEPER
--- NOTE | 2019-05-22 20:23 | DCINST_ITS ---
- Discharge Diagnoses Current Active Problems: Current Active and Chronic Problems Debility (Acute) Fall (Acute) Sleep apnea (Chronic) Rhabdomyolysis (Chronic) You will use the following diet at home:: No restrictions, Regular Your food should be the consistency of: Regular Your liquids should be the consistency of: Regular/Thin Discharge Activity: Return to Normal Activity, May Shower, Use Walker Weight Bearing Status: Weight bearing as tolerated Call your doctor if you observe: Fever of 101 or Higher, Inability to urinate, Inability to have a bowel movement, Shortness of breath, Chest pain, Uncontrolled pain Allergies/Adverse Reactions: Allergies No Known Allergies Allergy (Verified 10/14/15 12:10) Medications to take at Discharge Pravastatin Sodium 40 mg PO DAILY 05/03/14 Aspirin [Aspirin, Baby] 81 mg PO DAILY 05/11/19 Citalopram [Celexa] 20 mg PO DAILY 05/11/19 Levothyroxine [Synthroid] 50 mcg PO DAILY 05/11/19 Acetaminophen [Tylenol] 1,000 mg PO Q8 05/15/19 Lisinopril [Zestril] 20 mg PO BID 05/15/19 Polyethylene Glycol 3350 [Miralax] 17 gm PO DAILY 05/15/19 Mineral Oil/Petrolatum,White [Eucerin] 1 applic TOPICAL QHS jar 05/22/19 Nystatin Powder [Mycostatin Powder] 1 applic TOPICAL 0600,2200 bottle 05/22/19 Oxycodone [Oxyir] 10 mg PO Q4H PRN PRN 7 Days #30 tab 05/22/19 cycloBENZAPRine HCl [Flexeril] 5 mg PO Q6H PRN PRN #30 tab 05/22/19 The following prescriptions were given: cycloBENZAPRine HCl [Flexeril] 5 mg PO Q6H PRN PRN #30 tab PRN Reason: Muscle Spasm Transmission Status: Pending to [id number] Oxycodone [Oxyir] 10 mg PO Q4H PRN PRN 7 Days #30 tab PRN Reason: Pain Score 1-10/10 Prescription Printed Primary Care Physician: Jay Palomo DO [Primary Care Provider] - Please follow up with your Primary Care Physician in: 1 week. Test Results: Test results from this visit will be discussed in further detail at your follow- up appointment, if applicable. Please Follow Up With: Dr. Gonzalez When: after D/C from TCU Please Follow Up With: PCP Dr. Palomo When: after D/C from TCU Proposed Discharge Date: 05/25/19
--- NOTE | 2019-05-22 20:24 | PCM.DC.SUM ---
Discharge Date and Diagnosis - Problem List Patient Problems: Active and Suspected Problems Debility (Acute) Fall (Acute) Date of Admission: 05/15/19 Date of Discharge: 05/25/19 - Primary Discharge Diagnosis Active and Suspected Problems Debility (Acute) Fall (Acute) - Secondary Discharge Diagnosis Chronic Problems Morbid (severe) obesity due to excess calories (Chronic) Hyperlipidemia (Chronic) Hypothyroidism (Chronic) Chronic renal failure, stage 2 (mild) (Chronic) Obstructive sleep apnea (Chronic) Anxiety and depression (Chronic) Sleep apnea (Chronic) Rhabdomyolysis (Chronic) HTN (hypertension) (Chronic) Hospital Course and Treatment Imaging Results: 05/16/19 06:35 Diet: Regular Diet Food consistency:: Regular Liquid Consistency:: Regular/Thin Is pt able to select menu?: Yes Labs (Last 48 Hours) 05/22/19 05/22/19 05:25 05:25 WBC 7.5 RBC 5.09 Hgb 14.8 Hct 46.0 MCV 90.4 MCH 29.1 MCHC 32.2 RDW Std Deviation 49.1 H RDW Coeff of Salud 14.7 H Plt Count 272 MPV 9.4 Immature Gran % (Auto) 0.700 Neut % (Auto) 65.0 Lymph % (Auto) 18.6 L [place] % (Auto) 10.3 H Eos % (Auto) 4.7 Baso % (Auto) 0.7 Absolute Neuts (auto) 4.9 Absolute Lymphs (auto) 1.39 Nucleated RBC % 0 Sodium 141 Potassium 4.1 Chloride 109 H Carbon Dioxide 27.0 Anion Gap 5 BUN 23 H Creatinine 1.16 Estim Creat Clear Calc 57.33 Est GFR (MDRD) Af Amer 80 Est GFR (MDRD) Non-Af 66 BUN/Creatinine Ratio 19.8 Glucose 97 Calcium 8.4 L Operations: None Procedures: None Summary of Care Provided: The patient is a 68 year old Male with below past medical history hospitalized for intractable right posterior thigh pain secondary to right hamstring avulsion, complicated by mild rhabdomyolysis, admitted to TCU with debility, here for rehabilitation, strengthening, prior to discharge home with . Discharge home with . Patient Problems: Active and Suspected Problems Debility (Acute) Fall (Acute) - Physical Exam Vital Signs Temp Pulse Resp BP Pulse Ox 97.9 F 67 20 H 128/76 H 94 05/22/19 16:00 05/22/19 16:00 05/22/19 16:00 05/22/19 16:00 05/22/19 16:00 Oxygen Delivery Method Room Air Weight: 136.219 kg Body Mass Index (BMI) 47.4 Intake and Output for Last 24 Hours 05/20/19 05/21/19 05/22/19 23:59 23:59 23:59 Intake Total 720 / 720 960 / 960 960 / 960 Balance 720 / 720 960 / 960 960 / 960 Laboratory Tests Past 24 Hrs 05/22/19 05/22/19 05:25 05:25 WBC 7.5 RBC 5.09 Hgb 14.8 Hct 46.0 MCV 90.4 MCH 29.1 MCHC 32.2 RDW Std Deviation 49.1 H RDW Coeff of Salud 14.7 H Plt Count 272 MPV 9.4 Immature Gran % (Auto) 0.700 Neut % (Auto) 65.0 Lymph % (Auto) 18.6 L [place] % (Auto) 10.3 H Eos % (Auto) 4.7 Baso % (Auto) 0.7 Absolute Neuts (auto) 4.9 Absolute Lymphs (auto) 1.39 Nucleated RBC % 0 Sodium 141 Potassium 4.1 Chloride 109 H Carbon Dioxide 27.0 Anion Gap 5 BUN 23 H Creatinine 1.16 Estim Creat Clear Calc 57.33 Est GFR (MDRD) Af Amer 80 Est GFR (MDRD) Non-Af 66 BUN/Creatinine Ratio 19.8 Glucose 97 Calcium 8.4 L Discharge Diet: No Restrictions Discharge Activity: Return to Normal Activity, May Shower, Use Walker Weight Bearing Status: Weight bearing as tolerated Call your doctor if you observe: Fever of 101 or Higher, Inability to urinate, Inability to have a bowel movement, Shortness of breath, Chest pain, Uncontrolled pain Home Medications: Medications to take at Discharge Pravastatin Sodium 40 mg PO DAILY 05/03/14 Aspirin [Aspirin, Baby] 81 mg PO DAILY 05/11/19 Citalopram [Celexa] 20 mg PO DAILY 05/11/19 Levothyroxine [Synthroid] 50 mcg PO DAILY 05/11/19 Acetaminophen [Tylenol] 1,000 mg PO Q8 05/15/19 Lisinopril [Zestril] 20 mg PO BID 05/15/19 Polyethylene Glycol 3350 [Miralax] 17 gm PO DAILY 05/15/19 Mineral Oil/Petrolatum,White [Eucerin] 1 applic TOPICAL QHS jar 05/22/19 Nystatin Powder [Mycostatin Powder] 1 applic TOPICAL 0600,2200 bottle 05/22/19 Oxycodone [Oxyir] 10 mg PO Q4H PRN PRN 7 Days #30 tab 05/22/19 cycloBENZAPRine HCl [Flexeril] 5 mg PO Q6H PRN PRN #30 tab 05/22/19 Following Prescrptions Were Given to Patient: cycloBENZAPRine HCl [Flexeril] 5 mg PO Q6H PRN PRN #30 tab PRN Reason: Muscle Spasm Transmission Status: Pending to [id number] Oxycodone [Oxyir] 10 mg PO Q4H PRN PRN 7 Days #30 tab PRN Reason: Pain Score 1-10/10 Prescription Printed Primary Care Physician: Jay Palomo DO [Primary Care Provider] - Please follow up with your Primary Care Physician in: 1 week. Please Follow Up With: Dr. Gonzalez When: after D/C from TCU Please Follow Up With: PCP Dr. Palomo When: after D/C from TCU Disposition: Home Minutes spent on discharge:: 30 Patient Condition:: Good Medical Necessity - Tobacco Use Smoking Status: Former smoker Tobacco Use: Cigars - Chews cigars. Meaningful Use Info Meaningful Use Diagnoses (Choose all that apply): None applicable
[2019-05-22 22:16] VITALS: O2SAT 92
[2019-05-22 23:40] VITALS: PULSE 74; RESP 12; RESP 29; O2SAT 95
[2019-05-23] MEDS: Acetaminophen 500 MG Tablet 1000 MG PO ×3 (06:09→21:07)
[2019-05-23] MEDS: Bisacodyl 5 MG Tablet 10 MG PO (06:09)
[2019-05-23] MEDS: Citalopram 20 MG Tablet PO (06:09)
[2019-05-23] MEDS: Pravastatin 40 MG Tablet PO (06:09)
[2019-05-23] MEDS: Lisinopril 20 MG Tablet PO ×2 (06:10→17:34)
[2019-05-23] MEDS: Levothyroxine 50 MCG Tablet PO (06:10)
[2019-05-23] MEDS: Nystatin Powder 15gm Bottle 1 APPLIC TOPICAL ×2 (06:11→21:07)
[2019-05-23] MEDS: oxyCODONE 5 MG Tablet 10 MG PO (07:55)
[2019-05-23] MEDS: Aspirin 81 MG TAB.CHEW PO (07:55)
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
[2019-05-23] MEDS: Tuberculin,Purif.prot.deriv. 50 TU/ML Vial 5 ML ID (10:40)
--- NOTE | 2019-05-23 13:18 | NURSING ---
pt daughter came to this nurse and stated that my dad said he got really dizzy in xray when standing and thought he was going to pass out. vitals done, 113/41,95% ra,,hr 70. temp,98.0 ta. reported to karina peters
[2019-05-23 13:22] VITALS: BP 113/41; PULSE 70; RESP 18; TEMP 36.7; O2SAT 95
[2019-05-23 16:00] VITALS: BP 131/80; PULSE 87; RESP 18; TEMP 36.4; O2SAT 94
[2019-05-23 20:44] VITALS: PULSE 64; RESP 18
[2019-05-24] MEDS: oxyCODONE 5 MG Tablet 10 MG PO ×3 (02:23→23:04)
[2019-05-24 02:24] VITALS: BP 145/75; PULSE 69; RESP 20; O2SAT 94
[2019-05-24 05:40] VITALS: BP 155/68; PULSE 63; RESP 18
[2019-05-24] MEDS: Levothyroxine 50 MCG Tablet PO (05:40)
[2019-05-24] MEDS: Lisinopril 20 MG Tablet PO ×2 (05:40→17:20)
[2019-05-24] MEDS: Citalopram 20 MG Tablet PO (05:41)
[2019-05-24] MEDS: Pravastatin 40 MG Tablet PO (05:41)
[2019-05-24] MEDS: Acetaminophen 500 MG Tablet 1000 MG PO ×3 (05:41→21:26)
[2019-05-24] MEDS: Nystatin Powder 15gm Bottle 1 APPLIC TOPICAL ×2 (05:42→21:26)
[2019-05-24] MEDS: Aspirin 81 MG TAB.CHEW PO (08:04)
--- NOTE | 2019-05-24 13:59 | MDS.RN ---
Information for the mds was obtained from review of the clinical record, interview of resident, staff, and direct observation of resident's care.
[2019-05-24 16:00] VITALS: BP 133/76; PULSE 69; RESP 20; TEMP 36.3; O2SAT 96
[2019-05-24 23:40] VITALS: PULSE 72; RESP 12; RESP 28; O2SAT 95
[2019-05-25 02:45] VITALS: PULSE 70; RESP 12; RESP 26; O2SAT 95
[2019-05-25 05:03] VITALS: PULSE 76; RESP 12; RESP 23; O2SAT 96
[2019-05-25] MEDS: Levothyroxine 50 MCG Tablet PO (05:40)
[2019-05-25] MEDS: Lisinopril 20 MG Tablet PO (05:40)
[2019-05-25] MEDS: Citalopram 20 MG Tablet PO (05:40)
[2019-05-25] MEDS: Pravastatin 40 MG Tablet PO (05:40)
[2019-05-25] MEDS: Polyethylene Glycol 3350 17 GM PACKET PO (05:41)
[2019-05-25] MEDS: Nystatin Powder 15gm Bottle 1 APPLIC TOPICAL (05:41)
[2019-05-25] MEDS: Acetaminophen 500 MG Tablet 1000 MG PO (05:41)
[2019-05-25] MEDS: oxyCODONE 5 MG Tablet 10 MG PO (06:26)
[2019-05-25] MEDS: Aspirin 81 MG TAB.CHEW PO (07:35)
--- NOTE | 2019-05-25 08:59 | NURSING ---
Pt refused CLARY wraps d/t going home today.
[2019-05-25 09:20] VITALS: PULSE 72; O2SAT 95
--- NOTE | 2019-05-25 10:44 | CASEMGMT ---
nsurance: Continued stay review sent through MMO review link on 05/21/19. Continued stay denied. LCD 05/24 with D/C on 05/25/19. HERMILA Owen aware. Auth # [id number] Initialized on 05/24/19 16:09 - END OF NOTE
[2019-05-25 11:13] VITALS: BP 154/78; PULSE 66; RESP 18; TEMP 36.3; O2SAT 95
--- NOTE | 2019-06-01 07:37 | MDS.RN ---
Information for the MDS IPA and DC assessments obtained from review of the clinical record, interview of resident, staff and direct observation of resident's care. waiting to finalize assessments per information systems instructions.
== END 2019-05-25 11:00 | disposition home or self-care (01) | DRG 949 ==
PROVIDERS: Admitting Provider Family Medicine Geriatric Medicine; Family Provider Family Medicine; PCP Family Medicine; Visit Provider Family Medicine Geriatric Medicine
DX: T79.6XXD Traumatic ischemia of muscle, subsequent encounter (principal); Z68.42 Body mass index [BMI] 45.0-49.9, adult; W05.1XXD Fall from non-moving nonmotorized scooter, subsequent encounter; N18.2 Chronic kidney disease, stage 2 (mild); I12.9 Hypertensive chronic kidney disease with stage 1 through stage 4 chronic kidney disease, or unspecified chronic kidney disease; E78.5 Hyperlipidemia, unspecified; E66.01 Morbid (severe) obesity due to excess calories; E03.9 Hypothyroidism, unspecified; G47.33 Obstructive sleep apnea (adult) (pediatric); F32.9 Major depressive disorder, single episode, unspecified; F41.9 Anxiety disorder, unspecified; Z87.891 Personal history of nicotine dependence; Z71.3 Dietary counseling and surveillance
CPT/HCPCS: 36415; 80048; 85025; 94002; 94003; 97032; 97110; 97116; 97163; 97166; 97530; 97535; 97802

== ENCOUNTER 2019-06-15 09:46 | Emergency (ER) | payer MEDICARE, SELFPAY ==
[2019-06-15 09:48] VITALS: BP 165/75; PULSE 83; RESP 20; TEMP 36.5; O2SAT 95; BMI 44.6
--- NOTE | 2019-06-15 09:52 | RAD_ITS ---
STUDY: X-RAY - RIGHT ANKLE REASON FOR EXAM: Male, 68 years old. Pain following a recent injury. TECHNIQUE: 3 view(s) of the ankle. COMPARISON: None. FINDINGS: Normal visualized distal tibia and fibula. Normal medial and lateral malleoli. Normal tibiotalar articulation and ankle mortise. Plantar spur. A spur is seen at the insertion of the Achilles tendon. The visualized subtalar, talonavicular, calcaneocuboid and tarsal articulations are normal. Diffuse soft tissue swelling. RAD/Ankle min 3 Views IMPRESSION: Diffuse soft tissue swelling. Plantar spurs. Electronically Signed: Isael Ram, at 10:48 EDT , Service support ,
--- NOTE | 2019-06-15 10:13 | RAD_ITS ---
STUDY: X-RAY - RIGHT FOOT CLINICAL: Male, 68 years old. Pain due to a recent injury. TECHNIQUE: 3 view(s) of the foot. COMPARISON: None. FINDINGS: There is an enthesophyte involving the posterior superior calcaneus at the site of insertion of the Achilles tendon. Plantar spur. Normal visualized subtalar, talonavicular, calcaneocuboid, tarsal and tarsometatarsal articulations. Normal metatarsi. Normal metatarsophalangeal joint of the great toe. Normal tibial and fibular sesamoid bones. Normal interphalangeal joint of the great toe. Normal phalanges of the great toe. Normal second through fifth metatarsophalangeal joints. Normal interphalangeal joints and phalanges of the lesser toes. Diffuse soft tissue swelling. RAD/Foot min 3 Views IMPRESSION: Normal x-ray examination of the foot. Electronically Signed: Isael Ram, at 10:50 EDT , Service support ,
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
[2019-06-15 12:05] VITALS: BP 167/91; PULSE 62; RESP 14; O2SAT 98
--- NOTE | 2019-06-15 12:15 | DCINST.ED_ITS ---
ED Disposition - Plan for ED Patient: Disposition: Home or Assisted Living Instructions: Sprain, Ankle, with X-Ray Referrals: Jay Palomo DO [Primary Care Provider] - As Needed Andre Sanderson DPM [STAFF PHYSICIAN] - 1 Week if not improving Additional Instructions: Ice and elevate your ankle and foot. Follow-up with a human services care specialist if not improving. Tylenol and Motrin for pain.
== END 2019-06-15 13:12 | disposition home or self-care (01) ==
PROVIDERS: Emergency Provider Emergency Medicine; Family Provider Family Medicine; PCP Family Medicine
DX: S93.401A Sprain of unspecified ligament of right ankle, initial encounter (principal); S93.601A Unspecified sprain of right foot, initial encounter; M77.31 Calcaneal spur, right foot; W05.1XXA Fall from non-moving nonmotorized scooter, initial encounter; Y93.9 Activity, unspecified; Y92.9 Unspecified place or not applicable; Y99.9 Unspecified external cause status; I10 Essential (primary) hypertension; Z79.82 Long term (current) use of aspirin; Z79.899 Other long term (current) drug therapy
CPT/HCPCS: 73610; 73630; 99282

== ENCOUNTER → 2020-02-04 12:03 | Outpatient (CLI) | payer MEDICARE, SELFPAY ==
[2020-02-04 15:47] LABS: Absolute Lymphocyte Count 1.51 X10^3/uL (0.83-4.51); Absolute Neutrophil Count 3.2 X10^3/uL (2.0-7.7); Basophil# 0.04 X10^3/uL; Basophil% 0.7 % (0-1); Eosinophil# 0.14 X10^3/uL; Eosinophils% 2.6 % (0-5); Hemoglobin 17.7 g/dL (13.0-16.5); Lymphocyte # 1.51 X10^3/ul (4.0); Lymphocyte % 28.3 % (19-41); Mean Corp Hgb Conc 32.8 g/dL (32-36); Mean Corpuscular Hgb 31.6 pg (27.0-32.0); Mean Corpuscular Volume 96.3 fL (80-94); Mean Platelet Vol. 10.8 fl (6.2-12.0); Monocyte% 7.5 % (0-10); NRBC Flagged by Analyzer 0 % (0-5); Neutrophil # 3.22 X10^3/uL (2.7-7.7); Neutrophil % 60.3 % (47-70); Platelet Count 170 K/mm3 (150-450); RBC Distribution Width CV 16.3 % (11.6-14.6); RBC Distribution Width SD 55.3 fl (35.1-43.9); Red Blood Count 5.61 M/mm3 (4.6-6.2); White Blood Count 5.3 K/mm3 (4.4-11.0)
[2020-02-04 16:01] LABS: ALB/GLOB Ratio 1.2 RATIO (0.9-2.4); AST(SGOT) 21 U/L (15-37); Alanine Aminotransfer ALT/SGPT 26 U/L (16-61); Albumin, Serum 3.7 g/dL (3.2-5.0); Alkaline Phosphatase 63 U/L (45-117); Anion Gap 6 (5-15); BUN 12 mg/dL (7-18); BUN/Creat Ratio 10.3 RATIO (10-20); Calcium,Total 8.5 mg/dL (8.5-10.1); Chloride 108 mmol/L (98-107); Cholesterol 172 mg/dL (200); Creatinine, Serum 1.16 mg/dL (0.70-1.30); EST Glomerular Filtration Rate 66 mL/min (>60); Est Glom Filt Rate - Afr Amer 80 mL/min (>60); Glucose 99 mg/dL (74-106); High Density Lipoprotein 36 mg/dL; Potassium 3.8 mmol/L (3.5-5.1); Protein, Total 6.7 g/dL (6.4-8.2); Sodium Level 141 mmol/L (136-145); T4 Free Direct 0.86 ng/dL (0.76-1.46); Thyroid Stim Hormone (TSH) 2.77 uIU/mL (0.358-3.74); Triglycerides 142 mg/dL; Very Low Density Lipoprotein 28 mg/dL (5-40)
[2020-02-09 20:07] LABS: Testosterone, Free 12.67 ng/dL (5.00-21.00)
[2020-02-11 05:17] LABS: Testosterone, Total 497 ng/dL (264-916)
[2020-02-11 05:18] LABS: Testosterone, % Free 2.55 % (1.50-4.20)
== END ==
PROVIDERS: Family Provider Family Medicine; PCP Family Medicine; Referring Provider Family Medicine; Visit Provider Family Medicine
DX: Z12.5 Encounter for screening for malignant neoplasm of prostate (principal); I12.9 Hypertensive chronic kidney disease with stage 1 through stage 4 chronic kidney disease, or unspecified chronic kidney disease; E78.5 Hyperlipidemia, unspecified; N18.3 Chronic kidney disease, stage 3 (moderate); E03.9 Hypothyroidism, unspecified; M10.9 Gout, unspecified
CPT/HCPCS: 36415; 80053; 80061; 84402; 84403; 84439; 84443; 84550; 85025

== ENCOUNTER → 2020-08-08 11:15 | Outpatient (CLI) | payer MEDICARE, SELFPAY ==
[2020-08-08 16:04] LABS: Absolute Lymphocyte Count 1.57 X10^3/uL (0.83-4.51); Absolute Neutrophil Count 3.1 X10^3/uL (2.0-7.7); Basophil# 0.03 X10^3/uL; Basophil% 0.6 % (0-1); Eosinophils% 3.8 % (0-5); Hematocrit 50.7 % (40-54); Hemoglobin 16.2 g/dL (13.0-16.5); Lymphocyte # 1.57 X10^3/ul (4.0); Lymphocyte % 29.8 % (19-41); Mean Corpuscular Hgb 29.8 pg (27.0-32.0); Mean Corpuscular Volume 93.4 fL (80-94); Mean Platelet Vol. 11.3 fl (6.2-12.0); Monocyte# 0.38 X10^3/uL; Monocyte% 7.2 % (0-10); NRBC Flagged by Analyzer 0 % (0-5); Neutrophil # 3.06 X10^3/uL (2.7-7.7); Neutrophil % 58.2 % (47-70); Platelet Count 171 K/mm3 (150-450); RBC Distribution Width CV 14.2 % (11.6-14.6); RBC Distribution Width SD 48.9 fl (35.1-43.9); Red Blood Count 5.43 M/mm3 (4.6-6.2); White Blood Count 5.3 K/mm3 (4.4-11.0)
[2020-08-08 16:31] LABS: ALB/GLOB Ratio 1.3 RATIO (0.9-2.4); AST(SGOT) 15 U/L (15-37); Alanine Aminotransfer ALT/SGPT 27 U/L (16-61); Albumin, Serum 3.8 g/dL (3.2-5.0); Alkaline Phosphatase 74 U/L (45-117); Anion Gap 7 (5-15); BUN 22 mg/dL (7-18); BUN/Creat Ratio 17.7 RATIO (10-20); Calcium,Total 8.2 mg/dL (8.5-10.1); Chloride 109 mmol/L (98-107); Creatinine, Serum 1.24 mg/dL (0.70-1.30); EST Glomerular Filtration Rate 61 mL/min (>60); Est Glom Filt Rate - Afr Amer 74 mL/min (>60); Glucose 102 mg/dL (74-106); Potassium 3.9 mmol/L (3.5-5.1); Protein, Total 6.8 g/dL (6.4-8.2); Sodium Level 141 mmol/L (136-145)
[2020-08-08 16:46] LABS: D-Dimer Quantitative (DVT/PE) < 0.27 FEU/ug/m (0.27-0.49)
== END ==
PROVIDERS: PCP Family Medicine; Visit Provider Family Medicine
DX: I11.9 Hypertensive heart disease without heart failure (principal); I43 Cardiomyopathy in diseases classified elsewhere; R06.00 Dyspnea, unspecified
CPT/HCPCS: 36415; 80053; 83880; 85025; 85379

== ENCOUNTER → 2020-08-21 12:47 | Outpatient (CLI) | payer MEDICARE, SELFPAY ==
--- NOTE | 2020-08-21 12:50 | ECHOCS_ITS ---
Reason For Study: DYSPNEA Procedure This was a 2D Doppler, Color Flow transthoracic echocardiogram. The exam was of poor technical quality due to body habitus and respiratory interference. Contrast injection was performed. Exam performed in department. Left Ventricle Normal LV size. The estimated ejection fraction is 65 %. No evidence for diastolic dysfunction. No regional wall motion abnormalities noted. Right Ventricle Normal RV size. Normal systolic function. Atria Normal left atrium. Normal right atrium. No doppler evidence for ASD. Mitral Valve There is no mitral valve stenosis. No mitral valve insufficiency. Tricuspid Valve There is no tricuspid stenosis. No tricuspid valve insufficiency. Unable to estimate RV systolic pressure due to inadequate jet, pulmonary artery pressure probably normal. Aortic Valve Mild diffuse aortic valve thickening. Trisinus/trileaflet aortic valve. There is no aortic stenosis. Mild (1+) aortic valve insufficiency. Pulmonic Valve There is no pulmonic valvular stenosis. No pulmonic valve insufficiency. Great Vessels Moderately dilated ascending aorta. Pericardium/Pleural No pericardial effusion. Medication 22 gauge I.V. with prn adaptor inserted into right arm. Diluted definity 3.5ml given slow IV push to enhance endocardial definition. MMode/2D Measurements & Calculations LVIDd: 5.3 cm IVSd: 1.3 cm Ao root diam: 4.7 cm LVIDs: 3.9 cm LVPWd: 1.2 cm RVDd: 3.3 cm FS: 25.6 % LAV(MOD-bp): 50.2 ml EDV(MOD-sp4): 146.9 ml EDV(MOD-sp2): 167.9 ml LAV(MOD-bp) Indexed: 20.1 ml/m2 ESV(MOD-sp4): 67.1 ml EF(MOD-sp2): 58.0 % LAV(MOD-sp2): 53.2 ml EF(MOD-sp4): 54.3 % LAV(MOD-sp4): 49.1 ml SV(MOD-sp4): 79.8 ml SV(MOD-sp2): 97.4 ml LA A4 area: 17.5 cm2 LA dimension(2D): 4.8 cm RA A4 area: 12.0 cm2 Time Measurements MV dec time: 0.25 sec Doppler Measurements & Calculations MV E max vazquez: 69.0 cm/sec Ao V2 max: 147.6 cm/sec AI max vazquez: 519.5 cm/sec MV A max vazquez: 62.7 cm/sec Ao max P.7 mmHg AI max P.0 mmHg MV E/A: 1.1 Ao V2 mean: 103.2 cm/sec Ao mean P.8 mmHg AI dec slope: 329.3 cm/sec2 Ao V2 VTI: 31.5 cm AI P1/2t: 462.1 msec LV V1 max: 125.7 cm/sec PA V2 max: 84.6 cm/sec TR max vazquez: 267.1 cm/sec LV V1 max P.3 mmHg TR max P.5 mmHg LV V1 mean P.2 mmHg LV V1 mean: 83.9 cm/sec LV V1 VTI: 29.1 cm Interpretation Summary The estimated ejection fraction is 65 %. No evidence for diastolic dysfunction. Mild (1+) aortic valve insufficiency. Moderately dilated ascending aorta. The study was technically difficult. Contrast injection was performed. Ordering Physician: John Palomo Referring Physician: JOHN PALOMO Performed By: Estelle Villa, RDCS, RVT
== END ==
PROVIDERS: PCP Family Medicine; Visit Provider Family Medicine
DX: R06.00 Dyspnea, unspecified (principal); E66.01 Morbid (severe) obesity due to excess calories; G47.33 Obstructive sleep apnea (adult) (pediatric)
CPT/HCPCS: 93306; Q9957; A4216; C8929

== ENCOUNTER → 2020-09-11 12:20 | Outpatient (CLI) | payer MEDICARE, SELFPAY ==
--- NOTE | 2020-09-11 14:47 | PFTCOMP ---
COMPLETE PULMONARY FUNCTION TEST INTERPRETATION Brief HPI: Patient is a 70 year old male, currently under the care of Dr. Palomo, who presents to [facility] for complete pulmonary function tests secondary to diagnosis of dyspnea. Respiratory therapist reports good effort and reproducible results. Interpretation: Forced expiration spirometry shows a mild large airways obstructive ventilatory defect with an FEV1 of 86% predicted. There is a significant bronchodilator response in FVC and FEV1 by strict ATS criteria. Spirograms are of good quality and plateau slowly, indicating slowly emptying areas of the lungs. The respiratory flow volume loop shows decreased expiratory flow rates at all lung volumes consistent with airway obstruction. Lung volumes by body plethysmography show a decreased total lung capacity at 4.67 L, 78% predicted. All other lung volumes are reduced symmetrically. Diffusion capacity by carbon monoxide is at the lower limit of normal at 76% predicted. The airway resistance is normal. No previous pulmonary function tests were available for review. Impression: Partially reversible mild mixed ventilatory defect with symmetric reduction diffusing capacity
== END ==
PROVIDERS: PCP Family Medicine; Referring Provider Family Medicine; Visit Provider Family Medicine
DX: R06.00 Dyspnea, unspecified (principal); Z87.891 Personal history of nicotine dependence
CPT/HCPCS: 94060; 94726; 94729

== ENCOUNTER → 2021-01-16 12:16 | Outpatient (CLI) | payer MEDICARE, SELFPAY ==
[2020-12-23 06:25] VITALS: BMI 49.4
[2021-01-16 12:30] VITALS: PULSE 104; PULSE 72; PULSE 77; PULSE 83; PULSE 85; PULSE 91; PULSE 94; O2SAT 89; O2SAT 90; O2SAT 93; O2SAT 95
--- NOTE | 2021-01-16 14:33 | WT_ITS ---
PSN 6 Minute Walk Test 6 Minute Walk Test 6 Minute Walk Test: 6 Minute Walk Test PSN:6-Minute Walk Test Start: 01/16/21 12:43 Freq: Status: Active Protocol: RESP.6MINW Document 01/16/21 12:30 [facility] (Rec: 01/16/21 12:47 [facility] [id number]) 6 Minute Walk Test Date Performed 01/16/21 Time Performed 12:30 Height 5 ft 8 in Weight: 140.614 kg Weight in Pounds 310.[address]: DR TRIMBLE Assistive device used: None Pre-test Oxygen Delivery Method Room Air Pulse Ox (%) 95 Pulse Rate (60-100 beats/min) 72 Dyspnea Carly Scale (0-10) 1 Exertion Carly Scale (6-20) 6 1st minute Oxygen Delivery Method Room Air Pulse Ox (%) 93 Pulse Rate (60-100 beats/min) 83 2nd minute Oxygen Delivery Method Room Air Pulse Ox (%) 90 Pulse Rate (60-100 beats/min) 85 3rd minute Oxygen Delivery Method Room Air Pulse Ox (%) 89 Pulse Rate (60-100 beats/min) 94 4th minute Oxygen Delivery Method Room Air Pulse Ox (%) 90 Pulse Rate (60-100 beats/min) 94 5th minute Oxygen Delivery Method Room Air Pulse Ox (%) 89 Pulse Rate (60-100 beats/min) 104 H 6th minute Oxygen Delivery Method Room Air Pulse Ox (%) 90 Pulse Rate (60-100 beats/min) 91 Dyspnea Carly Scale (0-10) 2 Exertion Carly Scale (6-20) 11 Post-test Oxygen Delivery Method Room Air Pulse Ox (%) 93 Pulse Rate (60-100 beats/min) 77 Full Laps Walked 16 Partial Lap, Number of Tiles Walked 40 Total Distance Walked (ft) 984 Interpretation Interpretation: The patient was able to travel 984 feet over the course of 6 minutes on room air with no assistive devices or breaks. The patient did desaturate as low as 89% and had a peak heart rate of 104 bpm. These findings are consistent with a respiratory limitation exercise tolerance. Recommendations Recommendations: No supplemental oxygen is indicated at this time. However, patient will need to be followed closely given level of desaturation.
== END ==
PROVIDERS: PCP Family Medicine; Referring Provider Internal Medicine Critical Care Medicine; Visit Provider Internal Medicine Critical Care Medicine
DX: R06.02 Shortness of breath (principal)
CPT/HCPCS: 94618

== ENCOUNTER 2021-09-09 22:56 | Outpatient (CLI) | payer MEDICARE, SELFPAY | END 2021-09-09 23:59 | disposition short-term general hospital (02) | LOC: SL 22:56 | PROVIDERS: PCP Family Medicine; Visit Provider Family Medicine | DX: G47.33 Obstructive sleep apnea (adult) (pediatric) (principal) | CPT/HCPCS: 95811 ==

== ENCOUNTER 2021-10-23 13:08 | Outpatient (CLI) | payer MEDICARE, SELFPAY | END 2021-10-23 23:59 | disposition home or self-care (01) | LOC: SL 13:08 | PROVIDERS: PCP Family Medicine; Visit Provider Family Medicine | DX: Z00.00 Encounter for general adult medical examination without abnormal findings (principal) ==

== ENCOUNTER → 2022-02-10 | Outpatient (CLI) | payer MEDICARE, SELFPAY ==
[2022-02-10 15:18] LABS: Absolute Lymphocyte Count 2.07 X10^3/uL (0.83-4.51); Absolute Neutrophil Count 3.8 X10^3/uL (2.0-7.7); Basophil# 0.03 X10^3/uL; Basophil% 0.4 % (0-1); Eosinophil# 0.21 X10^3/uL; Eosinophils% 3.1 % (0-5); Hematocrit 49.9 % (40-54); Hemoglobin 16.6 g/dL (13.0-16.5); Lymphocyte # 2.07 X10^3/ul (0.83-4.51); Lymphocyte % 30.6 % (19-41); Mean Corp Hgb Conc 33.3 g/dL (32-36); Mean Corpuscular Hgb 31.3 pg (27.0-32.0); Mean Corpuscular Volume 94.2 fL (80-94); Mean Platelet Vol. 10.2 fl (6.2-12.0); Monocyte# 0.58 X10^3/uL; Monocyte% 8.6 % (0-10); NRBC Flagged by Analyzer 0 % (0-5); Neutrophil # 3.82 X10^3/uL (2.7-7.7); Neutrophil % 56.6 % (47-70); Platelet Count 206 K/mm3 (150-450); RBC Distribution Width CV 15.1 % (11.6-14.6); RBC Distribution Width SD 51.1 fl (35.1-43.9); White Blood Count 6.8 K/mm3 (4.4-11.0)
[2022-02-10 15:50] LABS: ALB/GLOB Ratio 1.2 RATIO (0.9-2.4); AST(SGOT) 16 U/L (15-37); Alanine Aminotransfer ALT/SGPT 28 U/L (16-61); Albumin, Serum 3.6 g/dL (3.2-5.0); Alkaline Phosphatase 69 U/L (45-117); BUN 16 mg/dL (7-18); BUN/Creat Ratio 13.2 RATIO (10-20); Calcium,Total 8.6 mg/dL (8.5-10.1); Cholesterol 179 mg/dL (200); Creatinine, Serum 1.21 mg/dL (0.70-1.30); EST Glomerular Filtration Rate 62 mL/min (>60); Est Glom Filt Rate - Afr Amer 76 mL/min (>60); Globulin 3.1 g/dL (2.2-4.2); Glucose 106 mg/dL (74-106); Protein, Total 6.7 g/dL (6.4-8.2); Triglycerides 207 mg/dL; Uric Acid 7.7 mg/dL (3.5-7.2)
[2022-02-10 15:51] LABS: Anion Gap 7 (5-15); Chloride 106 mmol/L (98-107); High Density Lipoprotein 36 mg/dL; PSA,Total - Annual Screen 2.75 ng/mL (0.00-4.00); Sodium Level 140 mmol/L (136-145); Thyroid Stim Hormone (TSH) 2.56 uIU/mL (0.358-3.74); Very Low Density Lipoprotein 41 mg/dL (5-40)
[2022-02-14 20:07] LABS: Testosterone, Free 14.43 ng/dL (5.00-21.00)
[2022-02-15 17:41] LABS: Testosterone, % Free 3.42 % (1.50-4.20); Testosterone, Total 422 ng/dL (264-916)
== END | disposition home or self-care (01) ==
LOC: MTLAB 12:41
PROVIDERS: PCP Family Medicine; Referring Provider Family Medicine; Visit Provider Family Medicine
DX: I10 Essential (primary) hypertension (principal); E78.5 Hyperlipidemia, unspecified; E03.9 Hypothyroidism, unspecified; M10.9 Gout, unspecified; Z51.81 Encounter for therapeutic drug level monitoring; Z12.5 Encounter for screening for malignant neoplasm of prostate
CPT/HCPCS: 36415; 80053; 80061; 84153; 84402; 84403; 84443; 84550; 85025; G0103

== ENCOUNTER → 2022-08-09 | Outpatient (CLI) | payer MEDICARE, SELFPAY ==
--- NOTE | 2022-08-09 13:57 | RAD_ITS ---
EXAM: XR LEFT KNEE, 3 VIEWS CLINICAL INDICATION: PAIN TECHNIQUE: Three views of the left knee. This report was created using Shark Punch report generation technology. COMPARISON: None. FINDINGS: BONES/JOINTS: Moderate tricompartmental osteoarthrosis, worse at the medial femorotibial compartment. No significant talar joint effusion. No acute fracture. No subluxation. Normal alignment. No sclerotic or destructive changes observed. SOFT TISSUES: Unremarkable. No soft tissue swelling or gas. No radiopaque foreign body. OTHER FINDINGS: . RAD/Knee 4 or More Views IMPRESSION: No acute findings in the left knee. Electronically Signed: Giovanny Gomes MD at 1:58 EST ,
== END | disposition home or self-care (01) ==
LOC: MTRAD 13:55
PROVIDERS: PCP Family Medicine; Referring Provider Family Medicine; Visit Provider Family Medicine
DX: M25.562 Pain in left knee (principal)
CPT/HCPCS: 73564

== ENCOUNTER → 2023-02-07 | Outpatient (CLI) | payer MEDICARE, SELFPAY ==
[2023-02-07 18:22] LABS: Absolute Lymphocyte Count 1.91 X10^3/uL (0.83-4.51); Absolute Neutrophil Count 3.2 X10^3/uL (2.0-7.7); Basophil# 0.03 X10^3/uL; Basophil% 0.5 % (0-1); Eosinophil# 0.18 X10^3/uL; Eosinophils% 3.1 % (0-5); Hematocrit 44.4 % (40-54); Hemoglobin 14.5 g/dL (13.0-16.5); Lymphocyte # 1.91 X10^3/ul (0.83-4.51); Lymphocyte % 33.2 % (19-41); Mean Corp Hgb Conc 32.7 g/dL (32-36); Mean Corpuscular Hgb 30.7 pg (27.0-32.0); Mean Corpuscular Volume 93.9 fL (80-94); Mean Platelet Vol. 10.9 fl (6.2-12.0); Monocyte# 0.45 X10^3/uL; Monocyte% 7.8 % (0-10); NRBC Flagged by Analyzer 0 % (0-5); Neutrophil # 3.16 X10^3/uL (2.7-7.7); Neutrophil % 55.1 % (47-70); Platelet Count 189 K/mm3 (150-450); RBC Distribution Width CV 14.5 % (11.6-14.6); RBC Distribution Width SD 50.1 fl (35.1-43.9); Red Blood Count 4.73 M/mm3 (4.6-6.2); White Blood Count 5.8 K/mm3 (4.4-11.0)
[2023-02-07 18:56] LABS: ALB/GLOB Ratio 1.2 RATIO (0.9-2.4); AST(SGOT) 22 U/L (15-37); Alanine Aminotransfer ALT/SGPT 27 U/L (16-61); Albumin, Serum 3.7 g/dL (3.2-5.0); Alkaline Phosphatase 80 U/L (45-117); Anion Gap 7 (5-15); BUN 20 mg/dL (7-18); BUN/Creat Ratio 18.2 RATIO (10-20); Calcium,Total 9.1 mg/dL (8.5-10.1); Chloride 112 mmol/L (98-107); Cholesterol 172 mg/dL (200); EST Glomerular Filtration Rate 70 mL/min (>60); Est Glom Filt Rate - Afr Amer 84 mL/min (>60); Globulin 3.1 g/dL (2.2-4.2); Glucose 104 mg/dL (74-106); High Density Lipoprotein 46 mg/dL; Potassium 3.8 mmol/L (3.5-5.1); Protein, Total 6.8 g/dL (6.4-8.2); Sodium Level 144 mmol/L (136-145); T4 Free Direct 0.97 ng/dL (0.76-1.46); Thyroid Stim Hormone (TSH) 2.61 uIU/mL (0.358-3.74); Triglycerides 132 mg/dL; Uric Acid 6.8 mg/dL (3.5-7.2); Very Low Density Lipoprotein 26 mg/dL (5-40)
[2023-02-07 19:02] LABS: Hemoglobin A1c 5.9 % (3.8-5.6)
[2023-02-07 19:14] LABS: Hepatitis C Antibody Non-Reactive (Nonreactive)
== END | disposition home or self-care (01) ==
LOC: MTLAB 14:28
PROVIDERS: PCP Family Medicine; Referring Provider Family Medicine; Visit Provider Family Medicine
DX: I10 Essential (primary) hypertension (principal); M10.9 Gout, unspecified; E78.5 Hyperlipidemia, unspecified; E03.9 Hypothyroidism, unspecified; R53.83 Other fatigue
CPT/HCPCS: 36415; 80053; 80061; 83036; 84439; 84443; 84550; 85025; 86803

== ENCOUNTER → 2024-03-22 | Outpatient (CLI) | payer MEDICARE, SELFPAY ==
--- NOTE | 2024-03-22 13:43 | RAD_ITS ---
STUDY: X-RAY - RIGHT SHOULDER REASON FOR EXAM: Male, 73 years old. PAIN TECHNIQUE: 4 views of the right shoulder. COMPARISON: None. FINDINGS: Normal glenohumeral articulation. There is hypertrophic acromioclavicular arthrosis with inferior osteophyte formation. Normal acromion. Intact humeral head and visualized proximal humerus. The soft tissue structures are unremarkable. There is no demonstrated acute fracture. Normal visualized pulmonary apex. 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 No demonstrated acute fracture. Electronically Signed: Alvaro Rivera MD at 14:55 EDT ,
== END | disposition home or self-care (01) ==
LOC: MTRAD 13:41
PROVIDERS: PCP Family Medicine; Referring Provider Family Medicine; Visit Provider Family Medicine
DX: M25.511 Pain in right shoulder (principal)
CPT/HCPCS: 73030

== ENCOUNTER → 2024-10-30 | Outpatient (CLI) | payer MEDICARE, SELFPAY | END | disposition home or self-care (01) | LOC: PSN 09:16 | PROVIDERS: PCP Family Medicine; Referring Provider Nurse Practitioner Acute Care; Visit Provider Nurse Practitioner Acute Care | DX: J44.9 Chronic obstructive pulmonary disease, unspecified (principal) | CPT/HCPCS: 94060; 94726; 94729 ==

== ENCOUNTER → 2024-11-09 | Outpatient (CLI) | payer MEDICARE, SELFPAY ==
[2024-11-09 12:21] VITALS: PULSE 59; PULSE 61; PULSE 79; PULSE 85; PULSE 86; PULSE 87; PULSE 88; O2SAT 91; O2SAT 92; O2SAT 93; O2SAT 96; O2SAT 97
--- NOTE | 2024-11-14 11:11 | PCM.PSN.6M ---
PSN 6 Minute Walk Test 6 Minute Walk Test 6 Minute Walk Test: 6 Minute Walk Test PSN:6-Minute Walk Test Start: 11/09/24 12:20 Freq: Status: Active Protocol: RESP.6MINW Document 11/09/24 12:21 [facility] (Rec: 11/09/24 12:24 [facility] [id number]) 6 Minute Walk Test Date Performed 11/09/24 Time Performed 12:00 Height 5 ft 8 in Weight: 340 lb Weight in Pounds 340.[address]: Jaclyn Moss SUPPORTABILITY ENGINEER Assistive device None used: Pre-test Oxygen Delivery Room Air Method Pulse Ox (%) 96 Pulse Rate (60-100 59 L beats/min) Dyspnea Carly Scale ( 1 0-10) Exertion Carly Scale 6 (6-20) 1st minute Oxygen Delivery Room Air Method Pulse Ox (%) 96 Pulse Rate (60-100 79 beats/min) 2nd minute Oxygen Delivery Room Air Method Pulse Ox (%) 92 Pulse Rate (60-100 85 beats/min) 3rd minute Oxygen Delivery Room Air Method Pulse Ox (%) 92 Pulse Rate (60-100 86 beats/min) 4th minute Oxygen Delivery Room Air Method Pulse Ox (%) 91 Pulse Rate (60-100 87 beats/min) 5th minute Oxygen Delivery Room Air Method Pulse Ox (%) 92 Pulse Rate (60-100 87 beats/min) 6th minute Oxygen Delivery Room Air Method Pulse Ox (%) 93 Pulse Rate (60-100 88 beats/min) Dyspnea Carly Scale ( 4 0-10) Exertion Carly Scale 13 (6-20) Post-test Oxygen Delivery Room Air Method Pulse Ox (%) 97 Pulse Rate (60-100 61 beats/min) Full Laps Walked 18 Partial Lap, Number 6 of Tiles Walked Total Distance 1068 Walked (ft) Interpretation Interpretation: The patient ambulated 1068 feet over the course of 6 minutes beginning on room air without assistive devices. Pretesting oxygen saturation was noted to be 96% on room air. With ambulation, the trish oxygen saturation was 91%. This represents a significant exertional oxygen desaturation, consistent with a pulmonary limitation to exercise tolerance. Recommendations Recommendations: There is no indication for the use of supplemental oxygen at this time. However, close interval follow-up is recommended, given the degree of oxygen desaturation noted during this study.
== END | disposition home or self-care (01) ==
LOC: PSN 12:02
PROVIDERS: PCP Family Medicine; Referring Provider Nurse Practitioner Acute Care; Visit Provider Nurse Practitioner Acute Care
DX: J44.9 Chronic obstructive pulmonary disease, unspecified (principal)
CPT/HCPCS: 94618

== ENCOUNTER → 2025-02-05 | Outpatient (CLI) | payer MEDICARE, SELFPAY ==
[2025-02-05 17:59] LABS: Absolute Lymphocyte Count 1.86 X10^3/uL (0.83-4.51); Absolute Neutrophil Count 3.8 X10^3/uL (2.0-7.7); Basophil# 0.03 X10^3/uL; Basophil% 0.5 % (0-1); Eosinophil# 0.17 X10^3/uL; Eosinophils% 2.7 % (0-5); Hematocrit 41.2 % (40-54); Hemoglobin 13.4 g/dL (13.0-16.5); Lymphocyte # 1.86 X10^3/ul (0.83-4.51); Lymphocyte % 29.3 % (19-41); Mean Corp Hgb Conc 32.5 g/dL (32-36); Mean Corpuscular Hgb 30.6 pg (27.0-32.0); Mean Corpuscular Volume 94.1 fL (80-94); Mean Platelet Vol. 10.9 fl (6.2-12.0); Monocyte# 0.45 X10^3/uL; Monocyte% 7.1 % (0-10); NRBC Flagged by Analyzer 0 % (0-5); Neutrophil # 3.81 X10^3/uL (2.7-7.7); Neutrophil % 59.9 % (47-70); Platelet Count 179 K/mm3 (150-450); RBC Distribution Width CV 14.7 % (11.6-14.6); RBC Distribution Width SD 50.9 fl (35.1-43.9); Red Blood Count 4.38 M/mm3 (4.6-6.2); White Blood Count 6.4 K/mm3 (4.4-11.0)
[2025-02-05 18:34] LABS: ALB/GLOB Ratio 1.7 RATIO (0.9-2.4); AST(SGOT) 20 U/L (<=37); Alanine Aminotransfer ALT/SGPT 16 U/L (<=46); Alkaline Phosphatase 81 U/L (40-129); Anion Gap 13 (5-15); BUN 23 mg/dL (4-19); Calcium,Total 8.9 mg/dL (7.6-11.0); Carbon Dioxide 21.2 mmol/L (21.0-32.0); Chloride 107 mmol/L (98-108); Cholesterol 163 mg/dL (<=200); Creatinine, Serum 1.17 mg/dL (0.70-1.20); EST Glomerular Filtration Rate 65 (>60); Globulin 2.4 g/dL (2.2-4.2); Glucose 118 mg/dL (70-99); High Density Lipoprotein 41 mg/dL; Low Density Lipoprotein Calc. 92 mg/dL; PSA,Total - Annual Screen 1.43 ng/mL (0.02-4.00); Potassium 4.3 mmol/L (3.3-5.1); Protein, Total 6.4 g/dL (5.9-8.4); Sodium Level 141 mmol/L (133-145); Total Bilirubin 0.37 mg/dL (0.00-1.30); Triglycerides 150 mg/dL; Uric Acid 6.2 mg/dL (3.5-7.2); Very Low Density Lipoprotein 30 mg/dL (5-40)
[2025-02-05 18:35] LABS: Hemoglobin A1c 6.1 % (<=5.6)
== END | disposition home or self-care (01) ==
LOC: BFHLAB 14:10
PROVIDERS: PCP Family Medicine; Visit Provider Family Medicine
DX: I10 Essential (primary) hypertension (principal); E78.5 Hyperlipidemia, unspecified; R73.01 Impaired fasting glucose; E03.9 Hypothyroidism, unspecified; M10.9 Gout, unspecified; Z12.5 Encounter for screening for malignant neoplasm of prostate
CPT/HCPCS: 36415; 80053; 80061; 83036; 84153; 84443; 84550; 85025; G0103

== ENCOUNTER 2025-07-16 23:45 | Emergency (ER) | payer MEDICARE, SELFPAY ==
[2025-07-16 23:46] VITALS: BP 186/87; PULSE 77; RESP 27; TEMP 36.4; O2SAT 99; BMI 52.7
[2025-07-16 23:48] VITALS: PULSE 77; RESP 28; O2SAT 95
[2025-07-17] VITALS (9 sets, daily range): BP systolic 147–166; BP diastolic 84–97; PULSE 71–88; RESP 16–34; TEMP 36.6; O2SAT 92–100
--- NOTE | 2025-07-17 00:13 | EKG12_ITS ---
Test Reason : CP/SOB Blood Pressure : */* mmHG Vent. Rate : 74 BPM Atrial Rate : 74 BPM P-R Int : 192 ms QRS Dur : 130 ms QT Int : 420 ms P-R-T Axes : 37 55 81 degrees QTcB Int : 466 ms Normal sinus rhythm Non-specific intra-ventricular conduction block T wave abnormality, consider anterior ischemia Abnormal ECG Confirmed by LORETA CORLEY, MARYAN ([id number]), assignment editor SARITA MIJARES ([id number]) on 07/17/2025 9:24:52 AM Referred By: SHAHEEN Confirmed By: MARYAN KAN MD
--- OUTSIDE RECORDS SUMMARY | 2025-07-17 00:18 | XMS RPT_ITS | CCD ---
Author Organization [facility] CliniSyid Care Team Providers Care Director Selection And Administration Name Role Phone JAIRO PRIMO (ICE CREAM MIXER) Unavailable Unava ilable BREE AMIN (ICE CREAM MIXER) Unavailable Unavailable Dr. Jay Palomo Primary Care Provider Ajay COMPUTER REPAIR ENGINEER, COMPUTER REPAIR ENGINEER-C Jaclyn Attending Provider Ajay COMPUTER REPAIR ENGINEER, COMPUTER REPAIR ENGINEER-C Jaclyn Referring Provider [phone] Dr. Jay Palomo Primary Care Provider Dr. Jay Palomo Referring Provider Dr. Anoop Sawyer Attending Provider [phone] Dr. Jay Palomo Primary Care Provider Dr. Jay Palomo Referring Provider Ajay COMPUTER REPAIR ENGINEER, COMPUTER REPAIR ENGINEER-C Jaclyn Attending Provider Dr. Jay Palomo DO Primary Care Provider [phone] Dr. Jay Palomo DO Referring Provider Ajay COMPUTER REPAIR ENGINEER-C, Jaclyn Attending Provider Ajay COMPUTER REPAIR ENGINEER-C, Jaclyn Referring Provider Ajay COMPUTER REPAIR ENGINEER-C, Jaclyn Other Provider Dr. Glen Reynolds DO Attending Provider [phone] Glen Reynolds DO Attending Provider [phone] Jay Palomo DO Attending Provider Ajay COMPUTER REPAIR ENGINEER, Jaclyn Referring Unavailable Ajay COMPUTER REPAIR ENGINEER, Jaclyn Attending Unavailable Jay Palomo Primary Care Unavailable Jay Palomo Primary Care Unavailable Jay Palomo Attending Unavailable Jay Palomo Primary Care Unavailable Glen Reynolds Attending Unavailable Ajay COMPUTER REPAIR ENGINEER, Jaclyn Referring Unavailable Ajay COMPUTER REPAIR ENGINEER, Jaclyn Referring Unavailable Ajay COMPUTER REPAIR ENGINEER, Jaclyn Consulting Unavailable Jay Palomo Primary Care Unavailable Glen Reynolds Attending Unavailable Jay Palomo Referring Unavailable Ajay COMPUTER REPAIR ENGINEER, Jaclyn Attending Unavailable Jay Palomo Primary Care Unavailable StaciaJay dave Referring Unavailable StaciaJay dave Primary Care Unavailable Ajay COMPUTER REPAIR ENGINEER, Jaclyn Attending Unavailable Jay Palomo Attending Unavailable Jay Palomo Referring Unavailable Jay Palomo Primary Care Unavailable Ajay COMPUTER REPAIR ENGINEER, Jaclyn Referring Unavailable StaciaJay dave Primary Care Unavailable Ajay COMPUTER REPAIR ENGINEER, Jaclyn Attending Unavailable Allergies Allergy Classification Reported Allergen(s) Allergy Type Date of Onset Reaction(s) Facility (1 source) RAGWEED; Translations: [RAGWEED] Propensity to adverse reactions (disorder) 6 [facility] Repository (4 sources) Ragweed pollen; Translations: [ragweed pollen] Allergy to substance 1 [facility] Medications Current Medications Medication Drug Class(es) Dates Sig (Normalized) Sig (Original) [id number] 200 actuat albuterol 0.09 mg/actuat metered dose inhaler (9 sources) beta2-Adrenergic Agonist Start: 02-22-2024 Albuterol Sulfate (Ventolin Hfa) 90 mcg/actuation HFA aerosol inhaler Active 2 NMA INHALATION Q4H as needed for shortness of breath or wheezing February 22, 2024 12:00am Start: 05-11-2021 take 2.5 mg by inhal ation every four hours as needed for wheezing Albuterol Sulfate 2.5 mg /3 mL (0.083 %) solution for nebulization Active 2.5 mg INHALATION Q4H as needed for shortness of breath or wheezing 180 May 11, 2021 12:00am allopurinol 100 mg oral tablet (6 sources) Xanthine Oxidase Inhibitor Start: 12-23-2020 take 1 tablet by mouth once daily Allopurinol 100 mg tablet Active 100 mg PO DAILY December 23, 2020 12:00am citalopram 20 mg oral tablet (6 sources) Serotonin Reuptake Inhibitor Start: 05-11-2019 take 1 tablet by mouth once daily Citalopram 20 MG tablet Active 20 mg PO DAILY May 11, 2019 12:00am hydroCHLOROthiazide 12.5 mg / lisinopril 20 mg oral tablet (9 sources) Thiazide Diuretic, Angiotensin Converting Enzyme Inhibitor Start: 10-18-2023 Lisinopril-[place] chlorothiazide 20-12.5 mg tablet Active {tbl} PO October 18, 2023 1:00am Start: 10-07-2015 End: 05-15-2019 take 1 tablet by mouth once daily Lisinopril-Hydrochlorothiazide (Zestoret ic) 1 EACH tablet Discontinued 1 NMA PO DAILY October 07, 2015 1:00am May 15, 2019 3:33pm latanoprost 0.05 mg/ml ophthalmic solution (3 sources) Prostaglandin Analog Start: 10-17-2024 Latanoprost 0.005 % drops Active NMA OPHTHALMIC October 17, 2024 1:00am levothyroxine sodium 0.05 mg oral tablet (6 sources) l-Thyroxine Start: 05-11-2019 take 1 tablet by mouth once daily Levothyroxine 50 MCG tablet Active 50 ug PO DAILY May 11, 2019 12:00am pravastatin sodium 40 mg oral tablet (6 sources) HMG-CoA Reductase Inhibitor Start: 05-03-2014 take 1 tablet by mouth once daily Pravastatin Sodium 40 MG tablet Active 40 mg PO DAILY May 03, 2014 12:00am Completed/Discontinued Medications Medication Drug Class(es) Dates Sig (Normalized) Sig (Original) acetaminophen 500 mg oral tablet (12 sources) Start: 05-14-2019 End: 12-23-2020 take 2 tablets by mouth every eight hours Acetaminophen 500 MG tablet Discontinued 1000 mg PO EVERY 8 HOURS May 15, 2019 6:38pm December 23, 2020 2:00pm Start: 05-14-2019 End: 12-23-2020 take 1000 mg by mouth every eight hours Acetaminophen Discontinued 1000 MG PO EVERY 8 HOURS May 15, 2019 6:38pm December 23, 2020 2:00pm aspirin 81 mg chewable tablet (12 sources) Platelet Aggregation Inhibitor, Nonsteroidal Anti-inflammatory Drug Start: 05-11-2019 End: 12-23-2020 take 1 tablet by mouth once daily Aspirin 81 MG tablet,chewable Discontinued 81 mg PO DAILY May 11, 2019 12:00am December 23, 2020 2:00pm Start: 10-07-2015 End: 10-15-2015 take 1 tablet by mouth once daily Aspirin 81 MG tablet Discontinued 81 mg PO DAILY@0800 October 07, 2015 1:00am October 15, 2015 8:59am budesonide 0.25 mg/ml inhalation suspension (6 sources) Corticosteroid Start: 05-11-2021 End: 04-27-2023 take 0.5 mg by inhalation twice daily Budesonide 0.5 mg/2 mL suspension for nebulization Discontinued 0.5 mg INHALATION TWICE A DAY May 11, 2021 12:00am April 27, 2023 2:12pm Budesonide-Formo terol (6 sources) Corticosteroid, beta2-Adrenergic Agonist Start: 12-23-2020 End: 05-11-2021 Budesonide-Formot sarath (Symbicort) 160-4.5 mcg/actuation HFA aerosol inhaler Discontinued 2 NMA INHALATION Q12H 10.2 December 23, 2020 12:00am May 11, 2021 1:51pm Start: 12-23-2020 End: 05-11-2021 take 1 puff(s) by inhalation every twelve hours Budesonide-Formoterol (Symbicort) 160-4.5 mcg/actuation HFA aerosol inhaler Discontinued 2 PUFF INHALATION Q12H 10.2 December 22, 2020 11:00pm May 11, 2021 12:51pm Start: 12-23-2020 End: 05-11-2021 take 1 puff(s) by inhalation every twelve hours Budesonide-Formoterol (Symbicort) 160-4.5 mcg/actuation HFA aerosol inhaler Discontinued 2 PUFF INHALATION Q12H 10.2 December 23, 2020 12:00am May 11, 2021 1:51pm cyclobenzaprine hydrochloride 10 mg oral tablet (12 sources) Muscle Relaxant Start: 05-14-2019 End: 12-23-2020 take 1 tablet by mouth every six hours as needed for muscle spasms Cyclobenzaprine 10 MG tablet Discontinued 5 mg PO EVERY 6 HOURS NEEDED as needed for Muscle Spasm May 22, 2019 8:22pm December 23, 2020 2:01pm 1 tab every 6 hours as needed for muscle spasm Start: 05-14-2019 End: 12-23-2020 take 1 tablet by mouth every six hours as needed for muscle spasms Cyclobenzaprine Discontinued 5 MG PO EVERY 6 HOURS NEEDED May 22, 2019 8:22pm December 23, 2020 2:01pm 1 tab every 6 hours as needed for muscle spasm docusate sodium 50 mg / sennosides, care home 8.6 mg oral tablet (6 sources) Start: 05-15-2019 End: 05-22-2019 Sennosides-Docusate Sodium 1 TABLET tablet Discontinued 2 {tbl} PO TWICE DAILY NEEDED as needed for Constipation May 15, 2019 12:00am May 22, 2019 8:22pm Start: 05-15-2019 End: 05-22-2019 take 2 tablets by mouth twice daily as needed Sennosides-Docusate Sodium Discontinued 2 TABLET PO TWICE DAILY NEEDED May 15, 2019 12:00am May 22, 2019 8:22pm lisinopril 20 mg oral tablet (12 sources) Angiotensin Converting Enzyme Inhibitor Start: 05-15-2019 End: 10-18-2023 take 1 tablet by mouth twice daily Lisinopril 20 MG tablet Discontinued 20 mg PO TWICE A DAY May 15, 2019 6:38pm October 18, 2023 2:53pm nystatin 100 unt/mg topical powder (6 sources) Polyene Antifungal Start: 05-22-2019 End: 12-23-2020 Nystatin 1 APPLIC bottle Discontinued 1 NMA TOPICAL May 22, 2019 12:00am December 23, 2020 2:01pm Please contact the information source for Protocol details. Start: 05-22-2019 End: 12-23-2020 Nystatin Discontinued 1 APPL IC TOPICAL May 22, 2019 12:00am December 23, 2020 2:01pm oxyCODONE hydrochloride 5 mg oral tablet (12 sources) Opioid Agonist Start: 05-22-2019 End: 05-30-2019 take 2 tablets by mouth every four hours as needed for pain Oxycodone 5 MG tablet Discontinued 10 mg PO EVERY 4 HOURS NEEDED as needed for Pain Score 1-10/10 30 May 22, 2019 May 28, 2019 12:00am May 30, 2019 12:09am Start: 05-22-2019 End: 05-30-2019 take 10 mg by mouth every four hours as needed Oxycodone Discontinued 10 MG PO EVERY 4 HOURS NEEDED 30 May 22, 2019 May 30, 2019 12:09am Start: 05-14-2019 End: 05-21-2019 take 2 tablets by mouth every four hours as needed for pain Oxycodone 5 MG tablet Discontinued 10 mg PO EVERY 4 HOURS NEEDED as needed for Pain 60 7 May 14, 2019 May 20, 2019 12:00am May 21, 2019 12:10am 2 tabs every 4 hours as needed for pain Start: 05-14-2019 End: 05-21-2019 take 2 tablets by mouth every four hours as needed for pain Oxycodone Discontinued 10 MG PO EVERY 4 HOURS NEEDED 60 7 May 14, 2019 May 21, 2019 12:10am 2 tabs every 4 hours as needed for pain polyethylene glycol 3350 74083 mg powder for oral solution (12 sources) Osmotic Laxative Start: 05-15-2019 End: 12-23-2020 take 17 g by mouth once daily Polyethylene Glycol 3350 17 GM packet Discontinued 17 g PO DAILY May 15, 2019 6:38pm December 23, 2020 2:01pm testosterone enanthate 200 mg/ml injectable solution (6 sources) Androgen Start: 12-23-2020 End: 10-17-2024 inject 200 mg by intramuscular injection once Testosterone Enanthate 200 mg/mL oil Discontinued 200 mg IM ONCE December 23, 2020 12:00am October 17, 2024 3:43pm as a single dose Start: 12-23-2020 inject 200 mg by int ramuscular injection once Testosterone Enanthate Active 200 MG IM ONCE December 23, 2020 12:00am as a single dose White Petrolatum-Mineral Oil (3 sources) Start: 05-22-2019 End: 12-23-2020 White Petrolatum-Mineral Oil Discontinued 1 APPLIC TOPICAL AT BEDTIME May 21, 2019 11:00pm December 23, 2020 1:01pm Start: 05-22-2019 End: 12-23-2020 White Petrolatum-Mineral Oil Discontinued 1 APPLIC TOPICAL AT BEDTIME May 22, 2019 12:00am December 23, 2020 2:01pm White Petrolatum-Mineral Oil 1 APPLIC cream (3 sources) Start: 05-22-2019 End: 12-23-2020 White Petrolatum-Mineral Oil 1 APPLIC cream Discontinued 1 NMA TOPICAL AT BEDTIME May 22, 2019 12:00am December 23, 2020 2:01pm Please contact the information source for Protocol details. Problems Active Problems Problem Classification Problem Date Documented Da te Episodic/Chronic Anxiety disorders (6 sources) Mixed anxiety and depressive disorder; Translations: [Anxiety disorder, unspecified] 05-15-2019 Chronic Asthma (12 sources) Asthma; Translations: [Unspecified asthma, uncomplicated] Onset: 10-17-2024 Chronic Chronic kidney disease (6 sources) Chronic kidney disease stage 2; Translations: [Chronic kidney disease, stage 2 (mild)] 05-15-2019 Chronic Chronic obstructive pulmonary disease and bronchiectasis (6 sources) Chronic obstructive lung disease; Translations: [Chronic obstructive pulmonary disease, unspecified] Onset: 11-21-2024 11-10-2022 Chronic Disorders of lipid metabolism (6 sources) Hyperlipidemia; Translations: [Hyperlipidemia, unspecified] 05-15-2019 Chronic E Codes: Fall (6 sources) Fall; Translations: [Unspecified fall, initial encounter] 12-23-2020 Episodic Essential hypertension (7 sources) Hypertensive disorder; Translations: [Essential (primary) hypertension] Onset: 02-12-2025 05-15-2019 Chronic Fluid and electrolyte disorders (6 sources) Dehydration; Translations: [Dehydration] 12-23-2020 Episodic Malaise and fatigue (6 sources) Asthenia; Translations: [Other malaise] 12-23-2020 Episodic Other connective tissue disease (6 sources) Rhabdomyolysis; Translations: [Rhabdomyolysis] 12-23-2020 Episodic Other injuries and conditions due to external causes (6 sources) Avulsion - injury; Translations: [Other specified injury of muscle, fascia and tendon of the posterior muscle group at thigh level, right thigh, initial encounter] 12-23-2020 Episodic Comment on above: Traumatic Other injuries and conditions due to external causes (6 sources) Traumatic rhabdomyolysis; Translations: [Traumatic ischemia of muscle, initial encounter] 12-23-2020 Episodic Comment on above: mild Other lower respiratory disease (9 sources) Dyspnea; Translations: [Shortness of breath] 12-23-2020 Episodic Other nutritional; endocrine; and metabolic disorders (2 sources) Morbid obesity; Translations: [Morbid (severe) obesity due to excess calories] Chronic Other nutritional; endocrine; and metabolic disorders (4 sources) Morbid (severe) obesity due to excess calories; Translations: [Morbid obesity] Onset: 10-17-2024 Chronic Other nutritional; endocrine; and metabolic disorders (7 sources) Obesity caused by energy imbalance; Translations: [Morbid (severe) obesity due to excess calories] 05-15-2019 Chronic Residual codes; unclassified (9 sources) Obstructive sleep apnea syndrome; Translations: [Obstructive sleep apnea (adult) (pediatric)] 05-15-2019 Chronic Comment on above: Auto BiPAP Residual codes; unclassified (6 sources) Sleep apnea; Translations: [Sleep apnea, unspecified] 05-15-2019 Chronic Residual codes; unclassified (3 sources) Obstructive sleep apnea (adult) (pediatric); Translations: [Obstructive sleep apnea (adult)(pediatric)] Onset: 10-17-2024 Chronic Residual codes; unclassified (1 source) Sleep apnea, unspecified; Translations: [Unspecified sleep apnea] 11-10-2022 Chronic Residual codes; unclassified (6 sources) Pain; Translations: [Pain, unspecified] 12-23-2020 Episodic Superficial injury; contusion (6 sources) Hematoma of lower limb; Translations: [Contusion of right lower leg, initial encounter] 12-23-2020 Episodic Thyroid disorders (6 sources) Hypothyroidism; Translations: [Hypothyroidism, unspecified] 05-15-2019 Chronic Past or Other Problems Problem Classification Problem Date Documented Da te Episodic/Chronic Other connective tissue disease (1 source) Pain in left foot; Translations: [Pain in left foot] Onset: 03-13-2017 Episodic Other injuries and conditions due to external causes (1 source) Unspecified injury of left foot, initial encounter; Translations: [Unspecified injury of left foot, initial encounter] Onset: 03-13-2017 Episodic Other lower respiratory disease (2 sources) Shortness of breath; Translations: [Shortness of breath] Onset: 10-17-2024 Episodic Other non-traumatic joint disorders (1 source) Effusion, left foot; Translations: [Effusion, left foot] Onset: 03-13-2017 Episodic Other non-traumatic joint disorders (1 source) Pain in right shoulder; Translations: [Pain in right shoulder] Onset: 04-24-2024 Episodic Results Test Name Value Interpretation Reference Range Facility Absolute lymphocyte countOrd ered By: Jay Palomo on 02-05-2025 Lymphocytes Auto (Unsp spec) [#/Vol] 1.86 10*3/uL 0.83-4.51 [facility] Absolute neutrophil countOrd ered By: Jay Palomo on 02-05-2025 Neutrophils (Bld) [#/Vol] 3.8 10*3/uL 2.0-7.7 [facility] Anion gap in Serum or Plasma Ordered By: Jay Palomo on 02-05-2025 Anion gap [Moles/Vol] 13 mmol/L 5- [facility] Automated lymphocyte count a s percentage of total leukocytesOrdered By: Jay Palomo on 02-05-2025 Lymphocytes/100 WBC Auto (Unsp spec) 29.3 % - [facility] BUN/creatinine ratioOrdered By: Jay Palomo on 02-05-2025 Urea nitrogen/Creatinine [Mass ratio] 20.0 mg/mg - [facility] Basophil percentageOrdered B y: Jay Palomo on 02-05-2025 Basophils/100 WBC (Bld) 0.5 % 0-1 [facility] Bilirubin, totalOrdered By: Jay Palomo on 02-05-2025 Bilirubin [Mass/Vol] 0.37 mg/dL 0.00-1.30 [facility] CBC W/Diff, Automatedon 01-20 Absolute Lymph 1.86 X10 3/uL Normal 0.83-4.51 [facility] Comment on above: Performed By: #### L [id number], L501.9910, L500.4050, L501.9985, L100.0100, L500.4100, L501.1400 #### [facility] [address] [place], [address] Absolute Neut 3.8 X10 3/uL Normal 2.0-7.7 [facility] Comment on above: Performed By: #### L [id number], L501.9910, L500.4050, L501.9985, L100.0100, L500.4100, L501.1400 #### [facility] [address] [place], [address] Basophils/100 WBC (Bld) 0.5 % Normal 0-1 [facility] Comment on above: Performed By: #### L [id number], L501.9910, L500.4050, L501.9985, L100.0100, L500.4100, L501.1400 #### [facility] [address] [place], [address] Eosinophils/100 WBC (Bld) 2.7 % Normal 0-5 [facility] Comment on above: Performed By: #### L [id number], L501.9910, L500.4050, L501.9985, L100.0100, L500.4100, L501.1400 #### [facility] [address] [place], [address] Erythrocyte distribution width (RBC) [Ratio] 14.7 % High 11.6-14.6 [facility] Comment on above: Performed By: #### L [id number], L501.9910, L500.4050, L501.9985, L100.0100, L500.4100, L501.1400 #### [facility] [address] [place], [address] Hematocrit (Bld) [Volume fraction] 41.2 % Normal 40-54 [facility] Comment on above: Performed By: #### L [id number], L501.9910, L500.4050, L501.9985, L100.0100, L500.4100, L501.1400 #### [facility] [address] [place], [address] Hemoglobin (Bld) [Mass/Vol] 13.4 g/dL Normal 13.0-16.5 [facility] Comment on above: Performed By: #### L [id number], L501.9910, L500.4050, L501.9985, L100.0100, L500.4100, L501.1400 #### [facility] [address] [place], [address] IG% 0.500 Normal 0.0-0.9 [facility] Comment on above: Result Comment: IG% - Immature Granulocytes (promyelocytes, myelocytes and metamyelocytes) > 1% indicates that a LEFT SHIFT is Present. Performed By: #### L [id number], L501.9910, L500.4050, L501.9985, L100.0100, L500.4100, L501.1400 #### [facility] [address] [place], [address] Lymphocytes/100 WBC (Bld) 29.3 % Normal 19-41 [facility] Comment on above: Performed By: #### L [id number], L501.9910, L500.4050, L501.9985, L100.0100, L500.4100, L501.1400 #### [facility] [address] [place], [address] MCH (RBC) [Entitic mass] 30.6 pg Normal 27.0-32.0 [facility] Comment on above: Performed By: #### L [id number], L501.9910, L500.4050, L501.9985, L100.0100, L500.4100, L501.1400 #### [facility] [address] [place], [address] MCHC (RBC) [Mass/Vol] 32.5 g/dL Normal 32-36 [facility] Comment on above: Performed By: #### L [id number], L501.9910, L500.4050, L501.9985, L100.0100, L500.4100, L501.1400 #### [facility] [address] [place], [address] MCV (RBC) [Entitic vol] 94.1 fL High 80-94 [facility] Comment on above: Performed By: #### L [id number], L501.9910, L500.4050, L501.9985, L100.0100, L500.4100, L501.1400 #### [facility] [address] [place], [address] Monocytes/100 WBC (Bld) 7.1 % Normal 0-10 [facility] Comment on above: Performed By: #### L [id number], L501.9910, L500.4050, L501.9985, L100.0100, L500.4100, L501.1400 #### [facility] [address] [place], [address] Neutrophils/100 WBC (Bld) 59.9 % Normal 47-70 [facility] Comment on above: Performed By: #### L [id number], L501.9910, L500.4050, L501.9985, L100.0100, L500.4100, L501.1400 #### [facility] [address] [place], [address] Nucleated RBC (Bld) [#/Vol] 0 10*3/uL Normal 0-5 [facility] Comment on above: Performed By: #### L [id number], L501.9910, L500.4050, L501.9985, L100.0100, L500.4100, L501.1400 #### [facility] [address] [place], [address] Platelet mean volume (Bld) [Entitic vol] 10.9 fL Normal 6.2-12.0 [facility] Comment on above: Performed By: #### L [id number], L501.9910, L500.4050, L501.9985, L100.0100, L500.4100, L501.1400 #### [facility] [address] [place], [address] Platelets (Bld) [#/Vol] 179 10*3/uL Normal 150-450 [facility] Comment on above: Performed By: #### L [id number], L501.9910, L500.4050, L501.9985, L100.0100, L500.4100, L501.1400 #### [facility] [address] [place], [address] RBC (Bld) [#/Vol] 4.38 10*6/uL Low 4.6-6.2 [facility] Comment on above: Performed By: #### L [id number], L501.9910, L500.4050, L501.9985, L100.0100, L500.4100, L501.1400 #### [facility] [address] [place], [address] RDW SD 50.9 fl High 35.1-43.9 [facility] Comment on above: Performed By: #### L [id number], L501.9910, L500.4050, L501.9985, L100.0100, L500.4100, L501.1400 #### [facility] [address] [place], [address] WBC (Bld) [#/Vol] 6.4 10*3/uL Normal 4.4-11.0 [facility] Comment on above: Performed By: #### L [id number], L501.9910, L500.4050, L501.9985, L100.0100, L500.4100, L501.1400 #### [facility] [address] [place], [address] Calculated very low density lipoprotein (VLDL) cholesterol measurementOrdered By: Jay Palomo on 02-05-2025 Calculated very low density lipoprotein (VLDL) cholesterol measurement 30 mg/dL 5-40 [facility] Carbon dioxide, total [Moles /volume] in Central venous bloodOrdered By: Jay Palomo on 02-05-2025 CO2 [Moles/Vol] 21.2 mmol/L 21.0-32.0 [facility] Chloride assayOrdered By: Richard Palomo on 02-05-2025 Chloride [Moles/Vol] 107 mmol/L 98-108 [facility] Comprehensive Metabolic Prof ilon 02-05-2025 Albumin [Mass/Vol] 4.0 g/dL Normal 3.4-4.8 [facility] Comment on above: Performed By: #### L [id number], L501.9910, L500.4050, L501.9985, L100.0100, L500.4100, L501.1400 #### [facility] [address] [place], [address] Albumin/Globulin [Mass ratio] 1.7 {ratio} Normal 0.9-2.4 [facility] Comment on above: Performed By: #### L [id number], L501.9910, L500.4050, L501.9985, L100.0100, L500.4100, L501.1400 #### [facility] [address] [place], [address] ALK PHOS 81 U/L Normal 40-129 [facility] Comment on above: Performed By: #### L [id number], L501.9910, L500.4050, L501.9985, L100.0100, L500.4100, L501.1400 #### [facility] [address] [place], [address] ALT [Catalytic activity/Vol] 16 U/L Normal <=46 [facility] Comment on above: Performed By: #### L [id number], L501.9910, L500.4050, L501.9985, L100.0100, L500.4100, L501.1400 #### [facility] [address] [place], [address] AST [Catalytic activity/Vol] 20 U/L Normal <=37 [facility] Comment on above: Performed By: #### L [id number], L501.9910, L500.4050, L501.9985, L100.0100, L500.4100, L501.1400 #### [facility] [address] [place], [address] Bilirubin [Mass/Vol] 0.37 mg/dL Normal 0.00-1.30 [facility] Comment on above: Performed By: #### L [id number], L501.9910, L500.4050, L501.9985, L100.0100, L500.4100, L501.1400 #### [facility] [address] [place], [address] BUN/CRE 20.0 RATIO Normal 10-20 [facility] Comment on above: Performed By: #### L [id number], L501.9910, L500.4050, L501.9985, L100.0100, L500.4100, L501.1400 #### [facility] [address] [place], [address] Calcium [Mass/Vol] 8.9 mg/dL Normal 7.6-11.0 [facility] Comment on above: Performed By: #### L 501.9520, L501.9910, L500.4050, L501.9985, L100.0100, L500.4100, L501.1400 #### [facility] [address] [place], [address] Chloride [Moles/Vol] 107 mmol/L Normal 98-108 [facility] Comment on above: Performed By: #### L 501.9520, L501.9910, L500.4050, L501.9985, L100.0100, L500.4100, L501.1400 #### [facility] [address] [place], [address] CO2 [Moles/Vol] 21.2 mmol/L Normal 21.0-32.0 [facility] Comment on above: Performed By: #### L 501.9520, L501.9910, L500.4050, L501.9985, L100.0100, L500.4100, L501.1400 #### [facility] [address] [place], [address] Creatinine [Mass/Vol] 1.17 mg/dL Normal 0.70-1.20 [facility] Comment on above: Performed By: #### L 501.9520, L501.9910, L500.4050, L501.9985, L100.0100, L500.4100, L501.1400 #### [facility] [address] [place], [address] GAP 13 Normal 5-15 [facility] Comment on above: Performed By: #### L 501.9520, L501.9910, L500.4050, L501.9985, L100.0100, L500.4100, L501.1400 #### [facility] [address] [place], [address] GFR/1.73 sq M.predicted among non-blacks MDRD (S/P/Bld) [Vol rate/Area] 65 mL/min/{1.73_m2} Normal >60 [facility] Comment on above: Result Comment: mL/m in/1.73m2 CKD-EPI Creatinine Equation (2020) Performed By: #### L 501.9520, L501.9910, L500.4050, L501.9985, L100.0100, L500.4100, L501.1400 #### [facility] [address] [place], [address] Globulin (S) [Mass/Vol] 2.4 g/dL Normal 2.2-4.2 [facility] Comment on above: Performed By: #### L 501.9520, L501.9910, L500.4050, L501.9985, L100.0100, L500.4100, L501.1400 #### [facility] [address] [place], [address] Glucose [Mass/Vol] 118 mg/dL High 70-99 [facility] Comment on above: Performed By: #### L 501.9520, L501.9910, L500.4050, L501.9985, L100.0100, L500.4100, L501.1400 #### [facility] [address] [place], [address] Potassium [Moles/Vol] 4.3 mmol/L Normal 3.3-5.1 [facility] Comment on above: Performed By: #### L 501.9520, L501.9910, L500.4050, L501.9985, L100.0100, L500.4100, L501.1400 #### [facility] [address] [place], [address] Sodium [Moles/Vol] 141 mmol/L Normal 133-145 [facility] Comment on above: Performed By: #### L 501.9520, L501.9910, L500.4050, L501.9985, L100.0100, L500.4100, L501.1400 #### [facility] [address] [place], [address] T PROT 6.4 g/dL Normal 5.9-8.4 [facility] Comment on above: Performed By: #### L 501.9520, L501.9910, L500.4050, L501.9985, L100.0100, L500.4100, L501.1400 #### [facility] [address] [place], [address] Urea nitrogen [Mass/Vol] 23 mg/dL High 4-19 [facility] Comment on above: Performed By: #### L 501.9520, L501.9910, L500.4050, L501.9985, L100.0100, L500.4100, L501.1400 #### [facility] [address] [place], [place], [id number] Eosinophil percentageOrdered By: Jay Palomo on 02-05-2025 Eosinophils/100 WBC (Bld) 2.7 % 0-5 [facility] Erythrocyte distribution wid th ratioOrdered By: Jay Palomo on 02-05-2025 Erythrocyte distribution width (RBC) [Ratio] 14.7 % High 11.6-14.6 [facility] Erythrocyte distribution wid th standard deviationOrdered By: Jay Palomo on 02-05-2025 Erythrocyte distribution width (RBC) [Ratio] 50.9 fl High 35.1-43.9 [facility] Glomerular filtration rate ( GFR) estimation/1.73 sq m using serum, plasma, or whole bOrdered By: Jay Palomo on 02-05-2025 GFR/1.73 sq M.predicted among non-blacks MDRD (S/P/Bld) [Vol rate/Area] 65 mL/min/{1.73_m2} >60 [facility] Comment on above: mL/min/1.73m2 CKD-EP I Creatinine Equation (2020) Hematocrit Auto (Bld) [Volum e fraction]Ordered By: Jay Palomo on 02-05-2025 Hematocrit (Bld) [Volume fraction] 41.2 % 40-54 [facility] Hemoglobin A1con 02-05-2025 HbA1c (Bld) [Mass fraction] 6.1 % High <=5.6 [facility] Comment on above: Result Comment: Norm al < 5.7 % Prediabetic 5.7 - 6.4 % Diabetic >or= 6.5 % Please note range changes. Performed By: #### L 501.9520, L501.9910, L500.4050, L501.9985, L100.0100, L500.4100, L501.1400 #### [facility] [address] [place], [place], [address] Hemoglobin A1c percentageOrd ered By: Jay Palomo on 02-05-2025 HbA1c (Bld) [Mass fraction] 6.1 % High <5.7 [facility] Comment on above: Normal < 5.7 % Predi abetic 5.7 - 6.4 % Diabetic >or= 6.5 % Please note range changes. Hemoglobin measurementOrdere d By: Jay Palomo on 02-05-2025 Hemoglobin (Bld) [Mass/Vol] 13.4 g/dL 13.0-16.5 [facility] Immature granulocytes/100 WB C Auto (Bld)Ordered By: Jay Palomo on 02-05-2025 Immature granulocytes/100 WBC (Bld) 0.500 % 0.0-0.9 [facility] Comment on above: IG% - Immature Granu locytes (promyelocytes, myelocytes and metamyelocytes) > 1% indicates that a LEFT SHIFT is Present. LDL calc ser/plasOrdered By: Jay Palomo on 02-05-2025 Cholesterol in LDL [Mass/Vol] 92 mg/dL [facility] Comment on above: Gxttaeveex=611-601 m g/dL & Higher Yjia=824 mg/dL or greater Laboratory - Chemistry and C hemistry - challengeOrdered By: Jay Palomo on 02-05-2025 AST [Catalytic activity/Vol] 20 U/L <38 [facility] Lipid Profileon 02-05-2025 CHOL:HDL 4.00 Normal [facility] Comment on above: Performed By: #### L 501.9520, L501.9910, L500.4050, L501.9985, L100.0100, L500.4100, L501.1400 #### [facility] [place], [place], [id number] Cholesterol [Mass/Vol] 163 mg/dL Normal <=200 [facility] Comment on above: Result Comment: Chol esterol level, Desirable <200 mg/dL Borderline high cholesterol 200-239 mg/dL High cholesterol >=240 mg/dL Recommendations of the NCEP Adult Treatment Panel for the following risk-cutoff thresholds for the [place] Prydein[place] population. Performed By: #### L 501.9520, L501.9910, L500.4050, L501.9985, L100.0100, L500.4100, L501.1400 #### [facility] [address] [place], [address] Cholesterol in HDL [Mass/Vol] 41 mg/dL Normal [facility] Comment on above: Result Comment: Ele onal Cholesterol Education Program (NCEP) guidelines: <40 mg/dL: Low HDL-cholesterol (major risk factor for CHD) >= 60 mg/dL: High HDL-cholesterol (negative risk factor for CHD) HDL-cholesterol is affected by a number of factors, e.g. smoking, exercise, hormones, sex and age. Performed By: #### L 501.9520, L501.9910, L500.4050, L501.9985, L100.0100, L500.4100, L501.1400 #### [facility] [address] [place], [address] Cholesterol in LDL [Mass/Vol] 92 mg/dL Normal [facility] Comment on above: Result Comment: Bord ktyrdf=372-205 mg/dL Higher Napj=354 mg/dL or greater Performed By: #### L 501.9520, L501.9910, L500.4050, L501.9985, L100.0100, L500.4100, L501.1400 #### [facility] [address] [place], [address] Cholesterol in VLDL [Mass/Vol] 30 mg/dL Normal 5-40 [facility] Comment on above: Performed By: #### L 501.9520, L501.9910, L500.4050, L501.9985, L100.0100, L500.4100, L501.1400 #### [facility] [address] [place], [address] Triglyceride [Mass/Vol] 150 mg/dL Normal [facility] Comment on above: Result Comment: The drugs N-Acetylcysteine and Metamizole may falsely depress this assay. Normal range: <150 mg/dL Borderline High: 150-199 mg/dL High: 200-499 mg/dL Very High: >500 mg/dL Performed By: #### L 501.9520, L501.9910, L500.4050, L501.9985, L100.0100, L500.4100, L501.1400 #### [facility] [place], [address] MCV (mean corpuscular volume ) determinationOrdered By: Jay Palomo on 02-05-2025 MCV (RBC) [Entitic vol] 94.1 fL High 80-94 [facility] Mean corpuscular hemoglobin (MCH) determinationOrdered By: Jay Palomo on 02-05-2025 MCH (RBC) [Entitic mass] 30.6 pg 27.0-32.0 [facility] Mean corpuscular hemoglobin concentration (MCHC) determinationOrdered By: Jay Palomo on 02-05-2025 MCHC (RBC) [Mass/Vol] 32.5 g/dL 32-36 [facility] Mean platelet volume determi nationOrdered By: Jay Palomo on 02-05-2025 Platelet mean volume (Bld) [Entitic vol] 10.9 fL 6.2-12.0 [facility] Monocyte percentageOrdered B y: Jay Palomo on 02-05-2025 Monocytes/100 WBC (Bld) 7.1 % 0-10 [facility] Neutrophil percentageOrdered By: Jay Palomo on 02-05-2025 Neutrophils/100 WBC (Bld) 59.9 % 47-70 [facility] Nucleated red blood cell per centageOrdered By: Jay Palomo on 02-05-2025 Nucleated RBC/100 WBC (Bld) [Ratio] 0 % 0-5 [facility] PSA,Total - Annual Screenon 02-05-2025 PSA,TOT SCREEN 1.43 ng/mL Normal 0.02-4.00 [facility] Comment on above: Result Comment: This test was performed using the [employer] tPSA method. Measured values of a patient??sample can vary depending on the testing procedure used. PSA values determined on patient samples by different testing procedures cannot be used interchangeably. If there is a change in PSA assays while monitoring therapy, sequential testing should be performed to confirm baseline values. Performed By: #### L 501.9520, L501.9910, L500.4050, L501.9985, L100.0100, L500.4100, L501.1400 ####[facility] [address] [place], [address] Platelet countOrdered By: Richard Palomo on 02-05-2025 Platelets (Bld) [#/Vol] 179 10*3/uL 150-450 [facility] Potassium measurement (mass/ volume)Ordered By: Jay Palomo on 02-05-2025 Potassium (Unsp spec) [Mass/Vol] 4.3 mmol/L 3.3-5.1 [facility] RBC Auto (Bld) [#/Vol]Ordere d By: Jay Palomo on 02-05-2025 RBC (Bld) [#/Vol] 4.38 10*6/uL Low 4.6-6.2 [facility] Screening total cholesterol/ high density lipoprotein (HDL) cholesterol ratioOrdered By: Jay Palomo on 02-05-2025 Cholesterol.total/Cho lesterol in HDL [Mass ratio] 4.00 {ratio} [facility] Serum creatinine measurement (mass/volume)Ordered By: Jay Palomo on 02-05-2025 Creatinine [Mass/Vol] 1.17 mg/dL 0.70-1.20 [facility] Serum globulin measurementOr dered By: Jay Palomo on 02-05-2025 Globulin (S) [Mass/Vol] 2.4 g/dL 2.2-4.2 [facility] Serum glucose measurement (m ass/volume)Ordered By: Jay Palomo on 02-05-2025 Glucose [Mass/Vol] 118 mg/dL High 70-99 [facility] Serum or plasma alanine ford otransferase (ALT) measurementOrdered By: Jay Palomo on 02-05-2025 ALT [Catalytic activity/Vol] 16 U/L <47 [facility] Serum or plasma albumin zay urement (mass/volume)Ordered By: Jay Palomo on 02-05-2025 Albumin [Mass/Vol] 4.0 g/dL 3.4-4.8 [facility] Serum or plasma albumin/glob ulin mass ratioOrdered By: Jay Palomo on 02-05-2025 Albumin/Globulin [Mass ratio] 1.7 {ratio} 0.9-2.4 [facility] Serum or plasma alkaline aline sphatase measurementOrdered By: Jay Palomo on 02-05-2025 ALP [Catalytic activity/Vol] 81 U/L 40-129 [facility] Serum or plasma calcium zay urement (mass/volume)Ordered By: Jay Palomo on 02-05-2025 Calcium [Mass/Vol] 8.9 mg/dL 7.6-11.0 [facility] Serum or plasma cholesterol in HDL measurement (mass/volume)Ordered By: Jay Palomo on 02-05-2025 Cholesterol in HDL [Mass/Vol] 41 mg/dL >40 [facility] Comment on above: National Cholesterol Education Program (NCEP) guidelines:<40 mg/dL: Low HDL-cholesterol (major risk factor for CHD)>= 60 mg/dL: High HDL-cholesterol (negative risk factor for CHD)HDL-cholesterol is affected by a number of factors, e.g. smoking, exercise, hormones, sex and age. Serum or plasma cholesterol measurement (mass/volume)Ordered By: Jay Palomo on 02-05-2025 Cholesterol [Mass/Vol] 163 mg/dL <201 [facility] Comment on above: Cholesterol level, D esirable <200 mg/dLBorderline high cholesterol 200-239 mg/dLHigh cholesterol >=240 mg/dLRecommendations of the NCEP Adult Treatment Panel for the following risk-cutoff thresholds for the [place] P[place]de[place] population. Serum or plasma urea nitroge n measurement (mass/volume)Ordered By: Jay Palomo on 02-05-2025 Urea nitrogen [Mass/Vol] 23 mg/dL High 4-19 [facility] Serum or plasma uric acid me asurement (mass/volume)Ordered By: Jay Palomo on 02-05-2025 Urate [Mass/Vol] 6.2 mg/dL 3.5-7.2 [facility] Comment on above: The drugs N-Acetylcy steine and Metamizole may falsely depress this assay. Sodium levelOrdered By: Jay Palomo on 02-05-2025 Sodium [Moles/Vol] 141 mmol/L 133-145 [facility] TSH DL <= 0.005 mIU/L QnOrde red By: Jay Palomo on 02-05-2025 TSH Qn 1.910 uIU/mL 0.300-4.200 [facility] Thyroid Stim Hormone (TSH)on 02-05-2025 TSH 1.910 uIU/mL Normal 0.300-4.200 [facility] Comment on above: Performed By: #### L 501.9520, L501.9910, L500.4050, L501.9985, L100.0100, L500.4100, L501.1400 #### [facility] [address] [place], [place], [id number] Total proteinOrdered By: Chio Palomo on 02-05-2025 Protein [Mass/Vol] 6.4 g/dL 5.9-8.4 [facility] Triglycerides measurementOrd ered By: Jay Palomo on 02-05-2025 Triglyceride [Mass/Vol] 150 mg/dL <199 [facility] Comment on above: The drugs N-Acetylcy steine and Metamizole may falsely depress this assay. Normal range: <150 mg/dLBorderline High: 150-199 mg/dLHigh: 200-499 mg/dLVery High: >500 mg/dL Uric Acidon 02-05-2025 URIC 6.2 mg/dL Normal 3.5-7.2 [facility] Comment on above: Result Comment: The drugs N-Acetylcysteine and Metamizole may falsely depress this assay. Performed By: #### L 501.9520, L501.9910, L500.4050, L501.9985, L100.0100, L500.4100, L501.1400 #### [facility] [address] [place], [place], [address] White blood cell (WBC) count Ordered By: Jay Palomo on 02-05-2025 WBC (Bld) [#/Vol] 6.4 10*3/uL 4.4-11.0 [facility] 6 Minute Walk Teston 025 6 Minute Walk Test y [facility] [address] [place] [address] MR#: [id number] Acct: [id number] Name: MILAN RAMIREZ Rep #: [id number] : 1950 74 From: Glen Reynolds DO Referring Dr: Jaclyn Moss COMPUTER REPAIR ENGINEER COMPUTER REPAIR ENGINEER-C Status: REG CLI Location: PSN Date: Sex: M C PSN 6 Minute Walk Test 6 Minute Walk Test 6 Minute Walk Test: 6 Minute Walk Test PSN:6-Minute Walk Test Start: 11/09/24 12:20 Freq: Status: Active Protocol: RESP.6MINW Document 11/09/24 12:21 SFENTON (Rec: 11/09/24 12:24 SFENTON [id number]) 6 Minute Walk Test Date Performed 11/09/24 Time Performed 12:00 Height 5 ft 8 in Weight: 340 lb Weight in Pounds [address]: Jaclyn Moss COMPUTER REPAIR ENGINEER Assistive device None used: Pre-test Oxygen Delivery Room Air Method Pulse Ox (%) 96 Pulse Rate (60-100 59 L beats/min) Dyspnea Carly Scale ( 1 0-10) Exertion Carly Scale 6 (6-20) 1st minute Oxygen Delivery Room Air Method Pulse Ox (%) 96 Pulse Rate (60-100 79 beats/min) 2nd minute Oxygen Delivery Room Air Method Pulse Ox (%) 92 Pulse Rate (60-100 85 beats/min) 3rd minute Oxygen Delivery Room Air Method Pulse Ox (%) 92 Pulse Rate (60-100 86 beats/min) 4th minute Oxygen Delivery Room Air Method Pulse Ox (%) 91 Pulse Rate (60-100 87 beats/min) 5th minute Oxygen Delivery Room Air Method Pulse Ox (%) 92 Pulse Rate (60-100 87 beats/min) 6th minute Oxygen Delivery Room Air Method Pulse Ox (%) 93 Pulse Rate (60-100 88 beats/min) Dyspnea Carly Scale ( 4 0-10) Exertion Carly Scale 13 (6-20) Post-test Oxygen Delivery Room Air Method Pulse Ox (%) 97 Pulse Rate (60-100 61 beats/min) Full Laps Walked 18 Partial Lap, Number 6 of Tiles Walked Total Distance 1068 Walked (ft) Interpretation Interpretation: The patient ambulated 1068 feet over the course of 6 minutes beginning on room air without assistive devices. Pretesting oxygen saturation was noted to be 96% on room air. With ambulation, the trish oxygen saturation was 91%. This represents a significant exertional oxygen desaturation, consistent with a pulmonary limitation to exercise tolerance. Recommendations Recommendations: There is no indication for the use of supplemental oxygen at this time. However, close interval follow-up is recommended, given the degree of oxygen desaturation noted during this study. 11/14/24 1112 Date Glen Reynolds DO CC: Date Dictated: 11/14/24 1111 Date Transcribed: 11/14/24 1111 Horseradish Grinder: Dr. Glen Reynolds DO Signed Normal [facility] Pulmonary Visit Reporton Pulmonary Visit Report [facility] [place] [address] [place] [address] OFFICE VISIT Date of Service: 10/17/24 MR#: [id number] Acct: [id number] Name: MILAN RAMIREZ Rep #: [id number] : 1950 Provider: LUCINA Moss Age/Sex: 74/M Location: [facility] [place].[facility] Status: Signed Assessment and Plan Assessment and Plan (1) Obstructive sleep apnea: Status: Chronic Comment: Auto BiPAP Plan: He is using and benefiting from Pap therapy. No indication for titration study at this time. Continue to encourage weight loss. Contact the office for any new or worsening symptoms in the meantime. Follow-up in 6 weeks. (2) Asthma: Status: Chronic Qualifiers: Asthma severity: moderate Asthma persistence: persistent Asthma complication type: uncomplicated Qualified Code(s): J45.40 - Moderate persistent asthma, uncomplicated Plan: Stable, he does not appear to be in exacerbation of asthma today. Not currently requiring any maintenance inhalers. Occasionally utilizes albuterol rescue inhaler. Repeat PFT and walk test to clarify status given complaints of shortness of breath on exertion, and exertion easily. Follow-up in 6 weeks. (3) Morbid (severe) obesity due to excess calories: Status: Chronic Plan: Complicates exam, plan, care and prognosis. Continue to encourage weight loss. (4) Shortness of breath: Status: Acute Plan: Of unclear etiology. Likely multifactorial. I did explain to the patient that his BMI is likely contributory. He conveys understanding. Will perform a pulmonary function test, however given that he has essentially been a non-smoker I do not suspect there will be any change in his obstructive performance. I am also performing a 6-minute walk test to evaluate for exertional hypoxia, if it is identified the patient will be ordered supplemental oxygen to be used with ambulation. Orders: Orders PFT Complete - DLCO, Spirometry b/a bronchodilators, lung volumes Today J44.9 - Chronic obstructive pulmonary disease, unspecified Simple Pulmonary Exercise Test Today J44.9 - Chronic obstructive pulmonary disease, unspecified HPI 6 M FU Chief Complaint: Shortness of breath HPI Comments Details: This patient presents to the office today for follow-up of his obstructive sleep apnea. He is ambulatory and currently on room air. He has not recently been seen in the ED or urgent care for any respiratory illness. He has not required any antibiotics or prednisone for any breathing problems. He has shortness of breath on exertion. He is exerted easily. He believes that his shortness of breath is progressing. He reports an occasional dry cough, but denies any sputum production or hemoptysis. He reports sinus congestion. He denies any wheezing, chest tightness, chest pain or palpitations. He denies any fever, chills or body aches. He utilizes his nebulizer about twice per week. He is essentially a never smoker. He occasionally smoked a cigar, but mostly chewed it up. He quit those completely 2005. He wakes up feeling rested and refreshed. He is not having difficulty with dry mouth or morning headaches. He is not having excessive nocturia. Compliance report for the past 30 days shows 100% compliance with an average use of 8 hours and 58 minutes per night. He is currently on auto BiPAP with pressures typically being utilized at 13.4-16.7/9.4-12.7 cm of water. Residual AHI of 0.2 events per hour. Leaks do not appear to be problematic. Intake Vital Signs 04/16/24 08:57 10/17/24 08:43 Height 5 ft 8 in 5 ft 8 in Weight: 330 lb 329 lb BMI 50.1 50.0 BP 142/75 H 121/77 H Blood Pressure Location Rt brachial Rt brachial Position Sitting Sitting Respiration 20 H 20 H Pulse 61 8 L Pulse Source Monitor Monitor Temp 97.2 F L 96.9 F L Temperature Source Temporal Artery Temporal Artery Pulse Oximetry (%) 95 93 Oxygen Delivery Method room air room air Intake Visit Reasons: 6 M FU Chief Complaint: DEBILITY, [employer] Distributor Operator Required: No DME Vendor: [employer] Accompanied by: Self Allergies ragweed pollen Allergy (Verified 10/17/24 14:42) Other Medications ???Medication ???Instructions ???Recorded ???Confirmed ???Type Pravastatin Sodium 40 mg PO DAILY CHOLESTEROL 4 10/17/24 History citalopram 20 mg tablet 20 mg PO DAILY MOOD 05/11/1910/17 History levothyroxine 50 mcg tablet 50 mcg PO DAILY THYROID 05/11/19 0 10/17/24 History allopurinol 100 mg tablet 100 mg PO DAILY 12/23/20 10/17/24 History albuterol sulfate 2.5 mg/3 mL 2.5 mg (3 mL) inhalation Q4H PRN 0 05/11/21 10/17/24 Rx (0.083 %) solution for nebulization shortness of breath or wheezing #180 mL lisinopril 20 tab PO 10/18/23 10/17/24 History mg-hydrochlorothiazide 12.5 mg (more content not included)... Normal [facility] Pulmonary Visit Reporton Pulmonary Visit Report [facility] [place] [address] [place] [address] OFFICE VISIT Date of Service: 04/16/24 MR#: [id number] Acct: [id number] Name: MILAN RAMIREZ Rep #: [id number] : 1950 Provider: LUCINA Moss Age/Sex: 73/M Location: [facility] [place].[facility] Status: Signed Assessment and Plan Assessment and Plan (1) Obstructive sleep apnea: Status: Chronic Comment: Auto BiPAP Plan: He is using and benefiting from Pap therapy. No indication for titration study at this time. Continue to encourage weight loss. Contact the office for any new or worsening symptoms in the meantime. Follow-up in 6 months. (2) Asthma: Status: Chronic Qualifiers: Asthma complication type: uncomplicated Asthma persistence: persistent Asthma severity: moderate Qualified Code(s): J45.40 - Moderate persistent asthma, uncomplicated Plan: Stable, he does not appear to be in exacerbation of asthma today. Not currently requiring any maintenance inhalers. Occasionally utilizes albuterol rescue inhaler. No additional testing at this time. Follow-up in 6 months. (3) Morbid (severe) obesity due to excess calories: Status: Chronic Plan: Continue to encourage weight loss. Plan Details Follow Up: 6 Months ([facility]) HPI 6 M FU Chief Complaint: routine follow up HPI Comments Details: This patient presents to the office today for follow-up of his obstructive sleep apnea. He is ambulatory and currently on room air. He has not recently been seen in the ED or urgent care for any respiratory illness. He has not required any antibiotics or prednisone for any breathing problems. He has shortness of breath on exertion, at his baseline. He denies any cough, sputum production or hemoptysis. He does have occasional wheezing with heavy breathing. He denies any chest tightness, chest pain or palpitations. He denies any fever, chills or body aches. He utilizes his nebulizer about twice per week. He wakes up feeling rested and refreshed. He reports excellent compliance. He is not having difficulty with dry mouth or morning headaches. He is not having excessive nocturia. Compliance report for the past 30 days shows 100% compliance with an average use of 7 hours and 43 minutes per night. He is currently on auto BiPAP with pressures typically being utilized at 13.3- 16.6/9 9.3 to 12.6 cm of water. Residual AHI of 0.4 events per hour. Leaks do not appear to be problematic. Intake Vital Signs 10/18/23 07:46 04/16/24 08:57 Height 5 ft 8 in 5 ft 8 in Weight: 310 lb 330 lb BMI 47.1 50.1 BP 145/71 H 142/75 H Blood Pressure Location Lt brachial Rt brachial Position Sitting Sitting Respiration 24 H 20 H Pulse 61 Pulse Source Monitor Monitor Temp 96.5 F L 97.2 F L Temperature Source Temporal Artery Temporal Artery Pulse Oximetry (%) 97 95 Oxygen Delivery Method room air room air Intake Visit Reasons: 6 M FU Tar Distributor Operator Required: No DME Vendor: lisa Accompanied by: Self Is patient in pain?: No Allergies ragweed pollen Allergy (Verified 04/16/24 14:10) Other Medications ???Medication ???Instructions ???Recorded ???Confirmed ???Type Pravastatin Sodium 40 mg PO DAILY CHOLESTEROL 05/03/14 04/16/24 History citalopram 20 mg tablet 20 mg PO DAILY MOOD 05/11/19 04/16/24 History levothyroxine 50 mcg tablet 50 mcg PO DAILY THYROID 05/11/19 04/16/24 History allopurinol 100 mg tablet 100 mg PO DAILY 12/23/20 04/16/24 History testosterone enanthate 200 mg/mL 200 mg IM ONCE 12/23/20 04/16/24 History intramuscular oil albuterol sulfate 2.5 mg/3 mL 2.5 mg (3 mL) inhalation Q4H PRN 05/11/21 04/16/24 Rx (0.083 %) solution for nebulization shortness of breath or wheezing #180 mL lisinopril 20 tab PO 10/18/23 04/16/24 History mg-hydrochlorothiazide 12.5 mg tablet albuterol sulfate 90 mcg/actuation 2 puff inhalation Q4H PRN 02/22/24 04/16/24 Rx aerosol inhaler (Ventolin HFA) shortness of breath or wheezing #18 grams Have you fallen in the past year?: No PFSH Medical History COPD (chronic obstructive pulmonary disease) Traumatic rhabdomyolysis Surgical History H/O cataract removal with insertion of prosthetic lens Family History Mother Emphysema lung Brother Cancer Sister Myocardial infarction Social History (Updated 04/16/24 @ 14:28 by Jaclyn Moss NP, COMPUTER REPAIR ENGINEER-C) Smoking Status: Never smoker Review of Systems Resp Respiratory: Yes as per HPI Exam Const Constitutional: Positive conversant, cooperative, in no acute respiratory distress, well developed, well nourished, good hygiene and obese (more content not included)... Normal [facility] Shoulder min 2 Viewson 03-22 Shoulder min 2 Views [facility] Imaging Services [address] [place] [address] Shoulder min 2 Views MR#: [id number] Acct: [id number] Name: MILAN RAMIREZ Rep #: [id number] : 1950 M 73 From: Alvaro Rivera MD PCP: Dr. Jay Palomo DO Status: REG CLI Study: Shoulder min 2 Views Date of Exam: 03/22/24 Exam# [id number] Ordering Dr: Jay Palomo DO [id number] STUDY: X-RAY - RIGHT SHOULDER REASON FOR EXAM: Male, 73 years old. PAIN TECHNIQUE: 4 views of the right shoulder. COMPARISON: None. FINDINGS: Normal glenohumeral articulation. There is hypertrophic acromioclavicular arthrosis with inferior osteophyte formation. Normal acromion. Intact humeral head and visualized proximal humerus. The soft tissue structures are unremarkable. There is no demonstrated acute fracture. Normal visualized pulmonary apex. 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 No demonstrated acute fracture. Electronically Signed: Alvaro Rivera MD at 14:55 EDT , CC: Dr. Jay Palomo DO Horseradish Grinder: Signed Normal [facility] Absolute lymphocyte countOrd ered By: Dr. Palomo on 02-07-2023 Lymphocytes Auto (Unsp spec) [#/Vol] 1.91 10*3/uL 0.83-4.51 [facility] Basophil percentageOrdered B y: Dr. Palomo on 02-07-2023 Basophils/100 WBC (Bld) 0.5 % 0-1 [facility] Bilirubin [Mass/Vol] 0.50 mg/dL 0.20-1.00 [facility] Comment on above: For patients on eltr ombopag therapy, use of Dimension [place] TBIL is not recommended. Chloride [Moles/Vol] 112 mmol/L 98-107 [facility] Cholesterol [Mass/Vol] 172 mg/dL <200 [facility] Comment on above: <200 mg/dL Desirable 200-240 mg/dL Borderline >240 mg/dL High Risk Eosinophils/100 WBC (Bld) 3.1 % 0-5 [facility] Glucose [Mass/Vol] 104 mg/dL 74-106 [facility] Comment on above: Fasting Glucose resu lt from 100 to 125 mg/dL suggests IMPAIRED HOMEOSTASIS per A.D.A. criteria. Neutrophils (Bld) [#/Vol] 3.2 10*3/uL 2.0-7.7 [facility] Neutrophils/100 WBC (Bld) 55.1 % 47-70 [facility] Potassium [Moles/Vol] 3.8 mmol/L 3.5-5.1 [facility] Protein [Mass/Vol] 6.8 g/dL 6.4-8.2 [facility] Sodium [Moles/Vol] 144 mmol/L 136-145 [facility] Triglyceride [Mass/Vol] 132 mg/dL <199 [facility] Comment on above: The drugs N-Acetylcy steine and Metamizole may falsely depress this assay.Serum Triglycerides Reference Interval Normal <150 mg/dL Borderline high 150 - 199 mg/dL High 200 - 499 mg/dL Very High > or = 500 mg/dL WBC (Bld) [#/Vol] 5.8 10*3/uL 4.4-11.0 [facility] Blood erythrocytes count (nu mber/volume)Ordered By: Dr. Palomo on 02-07-2023 RBC (Bld) [#/Vol] 4.73 10*6/uL 4.6-6.2 [facility] Blood hemoglobin measurement (mass/volume)Ordered By: Dr. Palomo on 02-07-2023 Hemoglobin (Bld) [Mass/Vol] 14.5 g/dL 13.0-16.5 [facility] Blood lymphocytes/100 leukoc ytesOrdered By: Dr. Palomo on 02-07-2023 Lymphocytes/100 WBC (Bld) 33.2 % 19-41 [facility] Blood monocytes/100 leukocyt esOrdered By: Dr. Palomo on 02-07-2023 Monocytes/100 WBC (Bld) 7.8 % 0-10 [facility] Blood platelet mean volumeOr dered By: Dr. Palomo on 02-07-2023 Platelet mean volume (Bld) [Entitic vol] 10.9 fL 6.2-12.0 [facility] Determination of erythrocyte mean corpuscular volume (MCV)Ordered By: Dr. Palomo on 02-07-2023 MCV (RBC) [Entitic vol] 93.9 fL 80-94 [facility] Hematocrit Auto (Bld) [Volum e fraction]Ordered By: Dr. Palomo on 02-07-2023 Hematocrit (Bld) [Volume fraction] 44.4 % 40-54 [facility] Laboratory - Chemistry and C hemistry - challengeOrdered By: Dr. Palomo on 02-07-2023 ALP [Catalytic activity/Vol] 80 U/L 45-117 [facility] ALT [Catalytic activity/Vol] 27 U/L 16-61 [facility] CO2 [Moles/Vol] 25.0 mmol/L 21.0-32.0 [facility] Free T4 [Mass/Vol] 0.97 ng/dL 0.76-1.46 [facility] Globulin (S) [Mass/Vol] 3.1 g/dL 2.2-4.2 [facility] Urea nitrogen/Creatinine [Mass ratio] 18.2 mg/mg 10-20 [facility] Laboratory - Hematology and Cell countsOrdered By: Dr. Palomo on 02-07-2023 Erythrocyte distribution width (RBC) [Entitic vol] 50.1 fL 35.1-43.9 [facility] Erythrocyte distribution width (RBC) [Ratio] 14.5 % 11.6-14.6 [facility] Immature granulocytes/100 WBC (Bld) 0.300 % 0.0-0.9 [facility] Comment on above: IG% - Immature Granu locytes (promyelocytes, myelocytes and metamyelocytes) > 1% indicates that a LEFT SHIFT is Present. MCH (RBC) [Entitic mass] 30.7 pg 27.0-32.0 [facility] Nucleated RBC/100 WBC (Bld) [Ratio] 0 % 0-5 [facility] MCHC Auto (RBC) [Mass/Vol]Or dered By: Dr. Palomo on 02-07-2023 MCHC (RBC) [Mass/Vol] 32.7 g/dL 32-36 [facility] No Panel InformationOrdered By: Dr. Palomo on 02-07-2023 Estimated GFR (MDRD) Amer 84 mL/min >60 [facility] Comment on above: GFR Calc Estimated GFR (MDRD) Non-Af Amer 70 mL/min >60 [facility] Comment on above: Non- GFR Calc Hepatitis C Antibody Non-Reactive Nonreactive [facility] Comment on above: Non Reactive: < 0.8 Equivocal: >/= 0.8 to < 1.0 Reactive: >/= 1.0The CDC recommends that a reactive/equivocal HCV antibody result be followed up by the HCV Nucleic Acid Amplificationtest (146534) Thyroid Stimulating Hormone (TSH) 2.61 uIU/mL 0.358-3.74 [facility] Platelets bldOrdered By: Dr. Palomo on 02-07-2023 Platelets (Bld) [#/Vol] 189 10*3/uL 150-450 [facility] Serum or plasma albumin zay urement (mass/volume)Ordered By: Dr. Palomo on 02-07-2023 Albumin [Mass/Vol] 3.7 g/dL 3.2-5.0 [facility] Serum or plasma albumin/glob ulin mass ratioOrdered By: Dr. Palomo on 02-07-2023 Albumin/Globulin [Mass ratio] 1.2 {ratio} 0.9-2.4 [facility] Serum or plasma calcium zay urement (mass/volume)Ordered By: Dr. Palomo on 02-07-2023 Calcium [Mass/Vol] 9.1 mg/dL 8.5-10.1 [facility] Serum or plasma cholesterol in HDL measurement (mass/volume)Ordered By: Dr. Palomo on 02-07-2023 Cholesterol in HDL [Mass/Vol] 46 mg/dL >40 [facility] Comment on above: The drugs N-Acetylcy steine and Metamizole may falsely depress this assay. Reference Range HDL <40 mg/dL Low HDL Cholesterol HDL >or= 60 mg/dL High HDL Cholesterol Serum or plasma cholesterol in VLDL measurement (mass/volume)Ordered By: Dr. Palomo on 02-07-2023 Cholesterol in VLDL [Mass/Vol] 26 mg/dL 5-40 [facility] Serum or plasma creatinine m easurement (mass/volume)Ordered By: Dr. Palomo on 02-07-2023 Creatinine [Mass/Vol] 1.10 mg/dL 0.70-1.30 [facility] Comment on above: The validity of the calculated GFR & GFRAA in patients over 70 years has not been determined. Clinical correlation is essential. Serum or plasma low density lipoprotein (LDL) cholesterol measurement (mass/volume)Ordered By: Dr. Palomo on 02-07-2023 Cholesterol in LDL [Mass/Vol] 100 mg/dL 0-130 [facility] Serum or plasma urea nitroge n measurement (mass/volume)Ordered By: Dr. Palomo on 02-07-2023 Urea nitrogen [Mass/Vol] 20 mg/dL 7-18 [facility] Serum or plasma uric acid me asurement (mass/volume)Ordered By: Dr. Palomo on 02-07-2023 Urate [Mass/Vol] 6.8 mg/dL 3.5-7.2 [facility] Comment on above: The drugs N-Acetylcy steine and Metamizole may falsely depress this assay. Thin prep Papanicolaou smear with manual screeningOrdered By: Dr. Palomo on 02-07-2023 Thin prep Papanicolaou smear with manual screening 22 U/L 15-37 [facility] Thin prep Papanicolaou smear with manual screening 7 5-15 [facility] Whole blood hemoglobin A1c/t otal hemoglobin ratio (mass fraction)Ordered By: Dr. Palomo on 02-07-2023 HbA1c (Bld) [Mass fraction] 5.9 % 3.8-5.6 [facility] Comment on above: Normal < 5.7 % Predi abetic 5.7 - 6.4 % Diabetic >or= 6.5 % Please note range changes. Absolute lymphocyte counton 02-10-2022 Lymphocytes Auto (Unsp spec) [#/Vol] 2.07 10*3/uL 0.83-4.51 [facility] Work Phone: [phone] Basophil percentageon 2021 Basophils/100 WBC (Bld) 0.4 % 0-1 [facility] Work Phone: Bilirubin [Mass/Vol] 0.50 mg/dL 0.20-1.00 [facility] Work Phone: Comment on above: For patients on eltr ombopag therapy, use of Dimension [place] TBIL is not recommended. Chloride [Moles/Vol] 106 mmol/L 98-107 [facility] Work Phone: Cholesterol [Mass/Vol] 179 mg/dL <200 [facility] Work Phone: Comment on above: <200 mg/dL Desirable 200-240 mg/dL Borderline >240 mg/dL High Risk Eosinophils/100 WBC (Bld) 3.1 % 0-5 [facility] Work Phone: Glucose [Mass/Vol] 106 mg/dL 74-106 [facility] Work Phone: Comment on above: Fasting Glucose resu lt from 100 to 125 mg/dL suggests IMPAIRED HOMEOSTASIS per A.D.A. criteria. Neutrophils (Bld) [#/Vol] 3.8 10*3/uL 2.0-7.7 [facility] Work Phone: [phone] Neutrophils/100 WBC (Bld) 56.6 % 47-70 [facility] Work Phone: Potassium [Moles/Vol] 4.0 mmol/L 3.5-5.1 [facility] Work Phone: [phone] Protein [Mass/Vol] 6.7 g/dL 6.4-8.2 [facility] Work Phone: [phone] Sodium [Moles/Vol] 140 mmol/L 136-145 [facility] Work Phone: [phone] Triglyceride [Mass/Vol] 207 mg/dL <199 [facility] Work Phone: Comment on above: The drugs N-Acetylcy steine and Metamizole may falsely depress this assay.Serum Triglycerides Reference Interval Normal <150 mg/dL Borderline high 150 - 199 mg/dL High 200 - 499 mg/dL Very High > or = 500 mg/dL WBC (Bld) [#/Vol] 6.8 10*3/uL 4.4-11.0 [facility] Work Phone: [phone] Blood erythrocytes count (nu mber/volume)on 02-10-2022 RBC (Bld) [#/Vol] 5.30 10*6/uL 4.6-6.2 [facility] Work Phone: [phone] Blood hemoglobin measurement (mass/volume)on 02-10-2022 Hemoglobin (Bld) [Mass/Vol] 16.6 g/dL 13.0-16.5 [facility] Work Phone: Blood lymphocytes/100 leukoc yteson 02-10-2022 Lymphocytes/100 WBC (Bld) 30.6 % 19-41 [facility] Work Phone: Blood monocytes/100 leukocyt eson 02-10-2022 Monocytes/100 WBC (Bld) 8.6 % 0-10 [facility] Work Phone: Blood platelet mean volumeon 02-10-2022 Platelet mean volume (Bld) [Entitic vol] 10.2 fL 6.2-12.0 [facility] Work Phone: [phone] Determination of erythrocyte mean corpuscular volume (MCV)on 02-10-2022 MCV (RBC) [Entitic vol] 94.2 fL 80-94 [facility] Work Phone: Hematocrit Auto (Bld) [Volum e fraction]on 02-10-2022 Hematocrit (Bld) [Volume fraction] 49.9 % 40-54 [facility] Work Phone: [phone] Laboratory - Chemistry and C hemistry - challengeon 02-10-2022 ALP [Catalytic activity/Vol] 69 U/L 45-117 [facility] Work Phone: ALT [Catalytic activity/Vol] 28 U/L 16-61 [facility] Work Phone: CO2 [Moles/Vol] 27.0 mmol/L 21.0-32.0 [facility] Work Phone: [phone] Globulin (S) [Mass/Vol] 3.1 g/dL 2.2-4.2 [facility] Work Phone: [phone] Urea nitrogen/Creatinine [Mass ratio] 13.2 mg/mg 10-20 [facility] Work Phone: Laboratory - Hematology and Cell countson 02-10-2022 Erythrocyte distribution width (RBC) [Entitic vol] 51.1 fL 35.1-43.9 [facility] Work Phone: Erythrocyte distribution width (RBC) [Ratio] 15.1 % 11.6-14.6 [facility] Work Phone: Immature granulocytes/100 WBC (Bld) 0.700 % 0.0-0.9 [facility] Work Phone: [phone] Comment on above: IG% - Immature Granu locytes (promyelocytes, myelocytes and metamyelocytes) > 1% indicates that a LEFT SHIFT is Present. MCH (RBC) [Entitic mass] 31.3 pg 27.0-32.0 [facility] Work Phone: Nucleated RBC/100 WBC (Bld) [Ratio] 0 % 0-5 [facility] Work Phone: MCHC Auto (RBC) [Mass/Vol]on 02-10-2022 MCHC (RBC) [Mass/Vol] 33.3 g/dL 32-36 [facility] Work Phone: No Panel Informationon 02-10 Estimated GFR (MDRD) Amer 76 mL/min >60 [facility] Work Phone: Comment on above: GFR Calc Estimated GFR (MDRD) Non-Af Amer 62 mL/min >60 [facility] Work Phone: Comment on above: Non- GFR Calc Prostate Specific Antigen Screen 2.75 ng/mL 0.00-4.00 [facility] Work Phone: Comment on above: This test was perfor med using the TPSA assay method for [employer] chemistry system. Values obtained with differentassay methods cannot be used interchangably.When changing PSA assays in the course of monitoring apatient, additional sequential testing should be carriedout to confirm baseline values. Thyroid Stimulating Hormone (TSH) 2.56 uIU/mL 0.358-3.74 [facility] Work Phone: Platelets bldon 02-10-2022 Platelets (Bld) [#/Vol] 206 10*3/uL 150-450 [facility] Work Phone: Serum or plasma albumin zay urement (mass/volume)on 02-10-2022 Albumin [Mass/Vol] 3.6 g/dL 3.2-5.0 [facility] Work Phone: Serum or plasma albumin/glob ulin mass ratioon 02-10-2022 Albumin/Globulin [Mass ratio] 1.2 {ratio} 0.9-2.4 [facility] Work Phone: Serum or plasma calcium zay urement (mass/volume)on 02-10-2022 Calcium [Mass/Vol] 8.6 mg/dL 8.5-10.1 [facility] Work Phone: Serum or plasma cholesterol in HDL measurement (mass/volume)on 02-10-2022 Cholesterol in HDL [Mass/Vol] 36 mg/dL >40 [facility] Work Phone: Comment on above: The drugs N-Acetylcy steine and Metamizole may falsely depress this assay. Reference Range HDL <40 mg/dL Low HDL Cholesterol HDL >or= 60 mg/dL High HDL Cholesterol Serum or plasma cholesterol in VLDL measurement (mass/volume)on 02-10-2022 Cholesterol in VLDL [Mass/Vol] 41 mg/dL 5-40 [facility] Work Phone: Serum or plasma creatinine m easurement (mass/volume)on 02-10-2022 Creatinine [Mass/Vol] 1.21 mg/dL 0.70-1.30 [facility] Work Phone: Comment on above: The validity of the calculated GFR & GFRAA in patients over 70 years has not been determined. Clinical correlation is essential. Serum or plasma low density lipoprotein (LDL) cholesterol measurement (mass/volume)on 02-10-2022 Cholesterol in LDL [Mass/Vol] 102 mg/dL 0-130 [facility] Work Phone: Serum or plasma urea nitroge n measurement (mass/volume)on 02-10-2022 Urea nitrogen [Mass/Vol] 16 mg/dL 7-18 [facility] Work Phone: Serum or plasma uric acid me asurement (mass/volume)on 02-10-2022 Urate [Mass/Vol] 7.7 mg/dL 3.5-7.2 [facility] Work Phone: Comment on above: The drugs N-Acetylcy steine and Metamizole may falsely depress this assay. Thin prep Papanicolaou smear with manual screeningon 02-10-2022 Thin prep Papanicolaou smear with manual screening 16 U/L 15-37 [facility] Work Phone: Thin prep Papanicolaou smear with manual screening 7 5-15 [facility] Work Phone: Tabitha 03-13-2017 CNOV Office Visit ([facility]) -------MILAN RAMIREZ ([id number]) 1950 MDate Time Provider Department03/13/17 11:30 AM OLDER, BREE (JIM) [facility] During your visit today, we recorded the following information about you: Temperature Pulse Respiration Blood pressure 97.7 degrees 60/minute 22/minute 94/62 Weight 136.5 kgNaz JIM Amin 03/13/2017 1:12 PM SignedCC: Patient presents with:Foot Trauma: Left foot pain X 2 day from falling out of bedHPIClaretonosaad Ramirez is a 66 year old male who presents today for pain andswelling left side of foot near great toe. Started hurting 2 days ago after hefell out of bed, thinks he may have injured it. Positive for redness.Aggravated by ice and walking. Treated with Percocet with minor relief. Nofever, chills, fatigue, body aches. History of gout, last flare up was a couplemonths ago. Usually gout is in his right foot, never had a problem with theleft foot. Prescribed Allopurinol but couldn't find pills so hasn't been takingfor a few days.REVIEW OF SYSTEMSSee HPIPAST MEDICAL HISTORYDiagnosis Date- Generalized convulsive epilepsy without mention of intractable epilepsy- Other and unspecified hyperlipidemia- Unspecified hypothyroidismPAST SURGICAL HISTORYNo date: CIRCUMCISION,OTHRALLERGIES RagweedMEDICATIONStestoster one cypionate (DEPO-TESTOSTERONE) 200 mg/mL injectionallopurinol (ZYLOPRIM) 100 mg tabletcelecoxib (CELEBREX) 200 mg capsulelisinopril-hydrochlo rothiazide (PRINZIDE,ZESTORETIC) 20-12.5 mg per tabletpravastatin (PRAVACHOL) 40 mg tabletCOMPOUNDED PRESCRIPTION depakote 400mg everyother day 300mg on odd daysSYNTHROID 50 MCG TAB Take one(1) tablet daily.ACTONEL 35 MG TAB Take 1 tablet weeklyBACTRIM DS 160 MG-800 MG TAB Take one(1) tablet two(2) times daily POFAMILY HISTORY lung ca [Other] [OTHER] Father Comment: smokerSocial HistorySubstance Use Topics- Smoking status: Never Smoker- Smokeless tobacco: Not on file- Alcohol use Yes Comment: rarelyPHYSICAL EXAMBP 94/62 Pulse 60 Temp 36.5 ?C (97.7 ?F) (Tympanic) Resp 22 Wt (!)136.5 kg (301 lb)General Appearance: well appearing, in no acute distress, alertLeft foot: Medial near first metatarsal (see image) Localized swelling anderythema, hot and very tender to the touchASSESSMENT/PLAN:1. Foot pain, left - ICD9: 729.5, ICD10: M79.672 (primary diagnosis)X-ray of left foot to rule out acute injury negative per radiologist. Symptomsand exam findings consistent with goutStart Prednisone, see ordersFollow-up with PCP in 3-5 days if no improvement in symptoms- XR FOOT AP/LAT/OBL LT2. Swelling of foot joint, left - ICD9: 719.07, ICD10: M25.475As above- XR FOOT AP/LAT/OBL LT3. Foot injury, left, initial encounter - ICD9: 959.7, ICD10: S99.922AAs above- XR FOOT AP/LAT/OBL LTNaz Older, CNPReferring Provider: SELF [200]Allergies As of Date: 03/13/2017 Noted Allergy ReactionRAGWEED 10/12/2005Date Reviewed: 03/13/2017Reviewed by: Stacia Castro LPN - Fully AssessedReason for Visit: Foot Trauma [766] Cmt: Left foot pain X 2 day from falling out of bedPrimary Visit Diagnosis:Foot pain, left [M79.672] Other Visit Diagnoses:Swelling of foot joint, left [M25.475] Foot injury, left, initial encounter [S99.922A]Order(s):XR FOOT AP/LAT/OBL LT [[id number]] Order #: [id number] FUTURE predniSONE (DELTASONE) 10 mg tabletTake 4 tabs daily x 3 days, then 3 tabs x 3 days, 2 tabs x 3 days, then 1 tab x3 days with food.Disp: 30 tabletRfl: 0Prescriptions as of 03/13/2017 Sig: TESTOSTERONE CYPIONATE 200 MG* ALLOPURINOL 100 MG TABLET CELECOXIB 200 MG CAPSULE LISINOPRIL 20 MG-HYDROCHLOROT* PRAVASTATIN 40 MG TABLET PREDNISONE 10 MG TABLET Take 4 tabs daily x 3 days, t* COMPOUNDED PRESCRIPTION depakote 400mg everyother day* SYNTHROID 50 MCG TABLET Take one(1) tablet daily. ACTONEL 35 MG TABLET Take 1 tablet weekly BACTRIM DS 800 MG-160 MG TABL* Take one(1) tablet two(2) giuseppe*Medication notes this encounter TESTOSTERONE CYPIONATE 200 MG/ML INTRAMUSCULAR OIL >> Stacia Castro LPN 03/13/2017 11:35 AM >> STACIA CASTRO LPN Mar 13, 2017 11:35 AM Received from: External Pharmacy ACTONEL 35 MG TABLET >> Stacia Castro LPN 03/13/2017 11:36 AM >> STACIA CASTRO LPN Mar 13, 2017 11:36 AM Not taking BACTRIM DS 800 MG-160 MG TABLET >> Stacia Castro LPN 03/13/2017 11:36 AM >> STACIA CASTRO LPN Mar 13, 2017 11:36 AM Not takingProblem List As Of Date 03/13/2017 Noted Resolved URETHRAL STRICTURE NOS [N35.9] INVALID FOR*Prescriptions ordered this encounter Disp Refills Start End PREDNISONE 10 MG TABLET 30 t* 0 03/13/2017 03/25/2017 Sig: Take 4 tabs daily x 3 days, then 3 tabs x 3 days, 2 tabs x 3 days, then 1 tab x3 days with food.Annotated image of FOOT, MEDIAL last updated by Bree Torres) Lux on 03/13/2017 1:10 PMEncounter Number: [id number] Status:Closed by BREE AMIN CNP on 03/13/17 [facility] PROGRESSon 03-13-2017 PROGRESS HNO ID: [id number] thor: Esther Hayward RtService: (none)Author Type: (none)Type: Progress NotesFiled: 03/13/2017 12:22 PMNote Text: Radiology Service Progress NotePATIENT NAME: Milan RamirezMRN: [id number] OF SERVICE: March 13, 2017TIME: 12:13 PMPATIENT IDENTITY VERIFICATION COMPLETED USING TWO (2) METHODS: Patientconfirmed name verbally and Date of .PATIENT GENDER DATA: MalePATIENT RELEVANT IMPLANT DATA REVIEWED: Not ApplicableRADIOLOGY DEPARTMENT: General X-ray: Exam(s) Completed: Lower ExtremityX-Ray(s): Foot, Left and Wt. Bearing:PERIPHERAL IV DATA: Not applicableSIGNED BY: Esther Godoy 2016 12:13 PM [facility] PROGRESS HNO ID: [id number] thor: Bree (Jim) OlderService: (none)Author Type: Nurse PractitionerType: Progress NotesFiled: 03/13/2017 1:12 PMNote Text:CC: Patient presents with:Foot Trauma: Left foot pain X 2 day from falling out of bedHPIClarence Amber Ramirez is a 66 year old male who presents today for pain andswelling left side of foot near great toe. Started hurting 2 days agoafter he fell out of bed, thinks he may have injured it. Positive forredness. Aggravated by ice and walking. Treated with Percocet with minorrelief. No fever, chills, fatigue, body aches. History of gout, last flareup was a couple months ago. Usually gout is in his right foot, never had aproblem with the left foot. Prescribed Allopurinol but couldn't find pillsso hasn't been taking for a few days.REVIEW OF SYSTEMSSee HPIPAST MEDICAL HISTORYDiagnosis Date- Generalized convulsive epilepsy without mention of intractable epilepsy- Other and unspecified hyperlipidemia- Unspecified hypothyroidismPAST SURGICAL HISTORYNo date: CIRCUMCISION,OTHRALLERGIES RagweedMEDICATIONStestoster one cypionate (DEPO-TESTOSTERONE) 200 mg/mL injectionallopurinol (ZYLOPRIM) 100 mg tabletcelecoxib (CELEBREX) 200 mg capsulelisinopril-hydrochlo rothiazide (PRINZIDE,ZESTORETIC) 20-12.5 mg per tabletpravastatin (PRAVACHOL) 40 mg tabletCOMPOUNDED PRESCRIPTION depakote 400mg everyother day 300mg on odd daysSYNTHROID 50 MCG TAB Take one(1) tablet daily.ACTONEL 35 MG TAB Take 1 tablet weeklyBACTRIM DS 160 MG-800 MG TAB Take one(1) tablet two(2) times daily POFAMILY HISTORY lung ca [Other] [OTHER] Father Comment: smokerSocial HistorySubstance Use Topics- Smoking status: Never Smoker- Smokeless tobacco: Not on file- Alcohol use Yes Comment: rarelyPHYSICAL EXAMBP 94/62 Pulse 60 Temp 36.5 ?C (97.7 ?F) (Tympanic) Resp 22 Wt (!)136.5 kg (301 lb)General Appearance: well appearing, in no acute distress, alertLeft foot: Medial near first metatarsal (see image) Localized swelling anderythema, hot and very tender to the touchASSESSMENT/PLAN:1. Foot pain, left - ICD9: 729.5, ICD10: M79.672 (primary diagnosis)X-ray of left foot to rule out acute injury negative per radiologist.Symptoms and exam findings consistent with goutStart Prednisone, see ordersFollow-up with PCP in 3-5 days if no improvement in symptoms- XR FOOT AP/LAT/OBL LT2. Swelling of foot joint, left - ICD9: 719.07, ICD10: M25.475As above- XR FOOT AP/LAT/OBL LT3. Foot injury, left, initial encounter - ICD9: 959.7, ICD10: S99.922AAs above- XR FOOT AP/LAT/OBL LTNaz Older, ICE CREAM MIXER Normal [facility] XR FOOT AP/LAT/OBLon 017 XR FOOT AP/LAT/OBL * * *Final Report* * *DATE OF EXAM: Mar 13 2017 12:22PM WOX 1401 - XR FOOT AP/LAT/OBL - LEFT / REASON: multiple diagnoses * * * * Physician Interpretation * * * * History: Pain in left footFINDINGS: AP, lateral, and oblique views of the left foot have been obtained. No acute fracture or dislocation is seen. Posterior and plantar calcaneal enthesophytes noted. No gross soft tissue abnormality is seen.IMPRESSION: Plantar and posterior calcaneal enthesophytes.No acute process is seen.Horseradish Grinder: PSCB Transcribe Date/Time: Mar 13 2017 12:42PDictated by : GERTRUDIS BETANCUR MDThis examination was interpreted and the report reviewed and electronically signed by: GERTRUDIS BETANCUR MD on Mar 13 2017 12:42PM EST Normal [facility] Vital Signs Date Time Vital Sign Value Performing Clinician Faci airamy 11-09-2024 12:21-0400 Body height 172.[address] Jay Palomo DO Work Phone: [facility] 11-09-2024 12:21-0400 Body weight 154.[address] Jay Palomo DO Work Phone: [facility] 11-09-2024 12:21-0400 Heart rate 59 /min Dr. Jay Palomo DO Work Phone: [facility] 11-09-2024 12:21-0400 SaO2% (BldA) [Mass fraction] 96 % Dr. Jay Palomo DO Work Phone: [facility] 10-17-2024 08:43-0500 Body height 172.[address] Jay Palomo DO Work Phone: [facility] 10-17-2024 08:43-0500 Body mass index (BMI) [Ratio] 50 kg/m2 Dr. Jay Palomo DO Work Phone: [facility] 10-17-2024 08:43-0500 Body temperature 96.9 [degF] Dr. Jay Palomo DO Work Phone: [facility] 10-17-2024 08:43-0500 Body weight 149.[address] Jay Palomo DO Work Phone: [facility] 10-17-2024 08:43-0500 Diastolic blood pressure 77 mm[Hg] Dr. Jay Palomo DO Work Phone: [facility] 10-17-2024 08:43-0500 Heart rate 8 /min Dr. Jay Palomo DO Work Phone: [facility] 10-17-2024 08:43-0500 Respiratory rate 20 /min Dr. Jay Palomo DO Work Phone: [facility] 10-17-2024 08:43-0500 SaO2% (BldA) [Mass fraction] 93 % Dr. Jay Palomo DO Work Phone: [facility] 10-17-2024 08:43-0500 Systolic blood pressure 121 mm[Hg] Dr. Jay Palomo DO Work Phone: [facility] 11-10-2022 08:43-0400 Body height 172.[address] Jay Palomo Work Phone: [facility] 11-10-2022 08:43-0400 Body mass index (BMI) [Ratio] 50.9 kg/m2 Dr. Jay Palomo Work Phone: [facility] 11-10-2022 08:43-0400 Body temperature 98.1 [degF] Dr. Jay Palomo Work Phone: [facility] 11-10-2022 08:43-0400 Body weight 151.[address] Jay Palomo Work Phone: [facility] 11-10-2022 08:43-0400 Diastolic blood pressure 60 mm[Hg] Dr. Jay Palomo Work Phone: [facility] 11-10-2022 08:43-0400 Heart rate 71 /min Dr. Jay Palomo Work Phone: [facility] 11-10-2022 08:43-0400 Respiratory rate 22 /min Dr. Jay Palomo Work Phone: [facility] 11-10-2022 08:43-0400 SaO2% (BldA) [Mass fraction] 97 % Dr. Jay Palomo Work Phone: [facility] 11-10-2022 08:43-0400 Systolic blood pressure 113 mm[Hg] Dr. Jay Palomo Work Phone: [facility] 05-10-2022 11:13-0400 Body height 172.[address] Jay Palomo Work Phone: [facility] Work Phone: 05-10-2022 11:13-0400 Body mass index (BMI) [Ratio] 47.9 kg/m2 Dr. Jay Palomo Work Phone: [facility] Work Phone: 05-10-2022 11:13-0400 Body temperature 97.2 [degF] Dr. Jay Palomo Work Phone: [facility] Work Phone: 05-10-2022 11:13-0400 Body weight 142.[address] Jay Palomo Work Phone: [facility] Work Phone: 05-10-2022 11:13-0400 Diastolic blood pressure 72 mm[Hg] Dr. Jay Palomo Work Phone: [facility] Work Phone: 05-10-2022 11:13-0400 Heart rate 55 /min Dr. Jay Palomo Work Phone: [facility] Work Phone: 05-10-2022 11:13-0400 Respiratory rate 16 /min Dr. Jay Palomo Work Phone: [facility] Work Phone: 05-10-2022 11:13-0400 SaO2% (BldA) [Mass fraction] 98 % Dr. Jay Palomo Work Phone: [facility] Work Phone: 05-10-2022 11:13-0400 Systolic blood pressure 116 mm[Hg] Dr. Jay Palomo Work Phone: [facility] Work Phone: 11-13-2021 12:36-0400 Body height 172.[address] Jay Palomo Work Phone: [facility] Work Phone: 11-13-2021 12:36-0400 Body mass index (BMI) [Ratio] 49.2 kg/m2 Dr. Jay Palomo Work Phone: [facility] Work Phone: 11-13-2021 12:36-0400 Body temperature 97.7 [degF] Dr. Jay Palomo Work Phone: [facility] Work Phone: 11-13-2021 12:36-0400 Body weight 146.[address] Jay Palomo Work Phone: [facility] Work Phone: 11-13-2021 12:36-0400 Diastolic blood pressure 85 mm[Hg] Dr. Jay Palomo Work Phone: [facility] Work Phone: 11-13-2021 12:36-0400 Heart rate 73 /min Dr. Jay Palomo Work Phone: [facility] Work Phone: 11-13-2021 12:36-0400 Respiratory rate 20 /min Dr. Jay Palomo Work Phone: [facility] Work Phone: 11-13-2021 12:36-0400 SaO2% (BldA) [Mass fraction] 95 % Dr. Jay Palomo Work Phone: [facility] Work Phone: 11-13-2021 12:36-0400 Systolic blood pressure 129 mm[Hg] Dr. Jay Palomo Work Phone: [facility] Work Phone: Encounters Encounter Date Encounter Type Care Provider Facility Start: 02-05-2025 End: 02-05-[address] Jay Palomo DO Work Phone: [facility] Work Phone: Start: 02-05-2025 End: 02-05-[address] Jay Palomo DO -Laboratory [facility] [place] [facility] Start: 02-05-2025 End: 02-05-2025 ambulatory Jay Palomo Facility:[facility] Start: 11-14-2024 ambulatory Jaclyn Moss NP Fac ility:[facility] Start: 11-14-2024 Non-patient / Non-visit Dr. Glen Brothers own DO -[facility] Start: 11-09-2024 End: 11-09-[address] Jay Palomo DO Work Phone: [facility] Work Phone: Start: 11-09-2024 End: 11-09-2024 Patient encounter procedure Jaclyn Moss COMPUTER REPAIR ENGINEER-C -Pulmonary Services/Neurology Work Phone: Start: 11-09-2024 End: 11-09-2024 ambulatory Jaclyn Moss NP Facility:[facility] Start: 10-30-2024 Non-patient / Non-visit Dr. Glen Brothers own DO -[facility] Start: 10-30-2024 End: 10-30-[address] Jay Palomo DO Work Phone: [facility] Work Phone: Start: 10-30-2024 End: 10-30-2024 Patient encounter procedure Jaclyn Moss COMPUTER REPAIR ENGINEER-C -Pulmonary Services/Neurology Work Phone: Start: 10-30-2024 End: 10-30-2024 ambulatory Jaclyn Moss NP Facility:[facility] Start: 10-17-2024 End: 10-17-2024 Patient encounter procedure Jaclyn Moss COMPUTER REPAIR ENGINEER-C -[facility] Work Phone: Start: 10-17-2024 End: 10-17-2024 ambulatory Jay Palomo Facility:[facility] Start: 04-16-2024 End: 04-16-2024 ambulatory Jay Palomo Facility:[facility] Start: 03-22-2024 End: 03-22-2024 ambulatory Jay Palomo Facility:[facility] Start: 02-07-2023 End: 02-07-[address] Jay Palomo Work Phone: [facility] Work Phone: Start: 02-07-2023 End: 02-07-[address] Jay Palomo Work Phone: [facility] Start: 11-10-2022 End: 11-10-[address] Jay Palomo Work Phone: [facility] Start: 08-09-2022 End: 08-09-[address] Jay Palomo Work Phone: [facility] Work Phone: Start: 08-09-2022 End: 08-09-[address] Jay Palomo Work Phone: [facility] Start: 05-10-2022 End: 05-10-[address] Jay Palomo Work Phone: [facility] Start: 02-10-2022 End: 02-10-[address] Jay Palomo Work Phone: [facility] Start: 11-13-2021 End: 11-13-[address] Jay Palomo Work Phone: [facility] Start: 10-23-2021 End: 10-23-[address] Jay Palomo Work Phone: [facility] Start: 03-13-2017 End: 03-14-2017 [facility] Procedures Date Procedure Procedure Detail Performing Clinician Start: 02-05-2025 Prostate specific an tigen measurement Dr. Jay Palomo DO Work Phone: Comment on above: This test was perfor med using the [employer] tPSA method. Measured values of a patient sample can vary depending on the testing procedure used. PSA values determined on patient samples by different testing procedures cannot be used interchangeably. If there is a change in PSA assays while monitoring therapy, sequential testing should be performed to confirm baseline values. Start: 08-09-2022 Radiologic examinati on of knee Dr. Jay Palomo Work Phone: Plan of Treatment Date Care Activity Detail Author Start: 11-09-2024 Walking distance 6 minutes [facility] Testosterone Free [M ass/volume] in Serum or Plasma [facility] Work Phone: Testosterone measurement [facility] Work Phone: [facility] Work Phone: Payers Date Payer Category Payer Self-pay [id number] 2023 Private Health Insurance [id number] 2013 Unknown [id number] Medicare [id number] Unknown [id number] 2.16.8 [id number] Unknown [id number] 2.16.8 [id number] Unknown [id number] 2.16.8 [id number] Unknown [id number] 2.16.8 [id number] Unknown [id number] 2.16.8 [id number] Unknown [id number] 2.16.8 [id number] Unknown [id number] 2.16.8 [id number] Unknown [id number] 2.16.8 [id number] Social History Date Type Detail Facility Start: 11-13-2021 End: 11-10-2022 Tobacco smoking status NHIS Unknown if ever smoked [facility] Start: 05-15-2019 None [facility] Start: 05-15-2019 Spouse/ Signif icant Other [facility] Start: 05-15-2019 Cigars [facility] Start: 1950 Sex Assigned At Male W [facility] Start: 04-16-2024 Tobacco smoking status NHIS Never smoked tobacco (finding) [facility] Start: 11-07-2024 End: 11-16-2024 Sex Male (finding) [facility] Procedure note 11-14-2024 Note Date & Type Note Facility 11-14-2024 Procedure note [facility] Evaluation note 10-17-2024 Note Date & Type Note Facility 10-17-2024 Evaluation note Diagnosis Onset Date Resolution Shortness of breath acute Febru francesca 2024 2:22pm Asthma chronic October 17, 2024 2:22pm Morbid (severe) obesity due to excess calories chronic October 17, 2024 2:22pm Obstructive sleep apnea chronic F ebruary 2024 2:22pm [facility] Work Phone: Evaluation note Note Date & Type Note Facility Evaluation note Diagnosis Onset Date Asthma acute Morbid (severe) obesity due to excess calories chronic Obstructive sleep apnea [facility] Work Phone: Evaluation note Note Date & Type Note Facility Evaluation note Diagnosis Onset Date Shortness of breath acute Morbid (severe) obesity due to excess calories chronic Obstructive sleep apnea [facility] Work Phone: Evaluation note Note Date & Type Note Facility Evaluation note Diagnosis Onset Date Asthma acute Morbid (severe) obesity due to excess calories chronic Sleep apnea chronic [facility] Work Phone: Reason for referral (narrative) Note Date & Type Note Facility Reason for referral (narrative) No reason for referral information available [facility] Work Phone: Summary Purpose Family History No Family History Records Found Relationship Condition Age at Onset Recorded Date/T christiano mother Pulmonary emphysema Unknown brother Malignant neoplasm Unknown sister Myocardial infarction Unknown Advance Directives No Advanced Directives Records Found Advance Directive Response Recorded Date/ Time Advance Directives No September 6:57pm Living Will No June 15 10:18am Power of Grass Farmer No June 15, 2019 10:18am Advance Directive Response Recorded Date/ Time Advance Directives No September 5:57pm Living Will No June 15 9:18am Power of Grass Farmer No June 15, 2019 9:18am Advance Directive Response Recorded Date/ Time Living Will No June 15 10:18am Power of Grass Farmer No June 15, 2019 10:18am Advance Directives No September 6:57pm Advance Directive Response Recorded Date/ Time Living Will No June 15 10:18am Do you have a Healthcare Power of Grass Farmer? No June 15, 2019 10:18am Advance Directives No September 6:57pm Chief Complaint and Reason for Visit Chief Complaint KALIE; BIPAP VAUTO *IN VENTORY TAGGED 6 M FU Reason for Visit Asthma Morbid (severe) obesity due to excess calories Obstructive sleep apnea Chief Complaint 6 M FU Reason for Visit Shortness of breath Morbid (severe) obesity due to excess calories Obstructive sleep apnea Chief Complaint 6 M FU Reason for Visit Asthma Morbid (severe) obesity due to excess calories Sleep apnea Chief Complaint Admit Date 6 M FU October 17, 2024 2:22pm J44.9 - Chronic obstructive pulmonary di sease, uns October 30, 2024 9:15am Reason for Visit Admit Date Shortness of breath October 17, 2024 2:22pm Asthma October 17, 2024 2:22pm Morbid (severe) obesity due to excess ca lories October 17, 2024 2:22pm Obstructive sleep apnea October 17 2:22pm Chief Complaint Admit Date 6 M FU October 17, 2024 2:22pm J44.9 - Chronic obstructive pulmonary di sease, uns October 30, 2024 9:15am J44.9 - Chronic obstructive pulmonary di sease, uns November 09, 2024 12:01pm J44.9 - Chronic obstructive pulmonary di sease, uns November 14, 2024 11:11am Chief Complaint Admit Date 6 M FU October 17, 2024 2:22pm J44.9 - Chronic obstructive pulmonary di sease, uns October 30, 2024 9:15am J44.9 - Chronic obstructive pulmonary di sease, uns October 30, 2024 9:46am J44.9 - Chronic obstructive pulmonary di sease, uns November 09, 2024 12:01pm J44.9 - Chronic obstructive pulmonary di sease, uns November 14, 2024 11:11am Additional Source Comments (unrecognized sect ion and content) No Status Records FoundNo Status Records Found INFORMATION SOURCE (unrecogn ized section and content) DATE CREATED AUTHOR 02/15/2018 [facility] DATE CREATED AUTHOR AUTHOR'S ORGANIZ ATION 02/14/2025 [facility] Goals (unrecognized section and content) Goals may be documented in a n alternate sectionGoals may be documented in an alternate sectionGoals may be documented in an alternate sectionGoals may be documented in an alternate sectionGoals may be documented in an alternate sectionGoals may be documented in an alternate section Care Teams (unrecognized sec tion and content) Team Status: Active Member Role Status Dates Dr. Jay Palomo DO Family Provider Active Dr. Jay Palomo DO Primary Care Provider Active Team Status: Inactive Member Role Status Dates Dr. Jay Palomo DO Primary Care Provider, Referrin g Provider Active Jaclyn Moss COMPUTER REPAIR ENGINEER, COMPUTER REPAIR ENGINEER-C Attending Provider Active Team Status: Inactive Member Role Status Dates Dr. Jay Palomo DO Primary Care Prov ider, Attending Provider, Referring Provider Active Team Status: Active Member Role Status Dates Dr. Jay Palomo DO Primary Care Provider Active Team Status: Inactive Member Role Status Dates Dr. Jay Palomo DO Primary Care Provider Active Start: October 17, 2024 End: October 17, 2024 Dr. Jay Palomo DO Referring Provider Active Start: October 17, 2024 End: October 17, 2024 Jaclyn Moss COMPUTER REPAIR ENGINEER, COMPUTER REPAIR ENGINEER-C Attending Provider Active Start: October 17, 2024 End: October 17, 2024 Team Status: Inactive Member Role Status Dates Dr. Jay Palomo DO Primary Care Provider Active Start: October 30, 2024 End: October 30, 2024 Jaclyn Moss NP, COMPUTER REPAIR ENGINEER-C Attending Provider Active Start: October 30, 2024 End: October 30, 2024 Jaclyn Moss NP, COMPUTER REPAIR ENGINEER-C Referring Provider Active Start: October 30, 2024 End: October 30, 2024 Team Status: Inactive Member Role Status Dates Dr. Jay Palomo DO Primary Care Provider Active Start: November 09, 2024 End: November 09, 2024 Jaclyn Moss NP, COMPUTER REPAIR ENGINEER-C Attending Provider Active Start: November 09, 2024 End: November 09, 2024 Jaclyn Moss NP, COMPUTER REPAIR ENGINEER-C Referring Provider Active Start: November 09, 2024 End: November 09, 2024 Team Status: Active Member Role Status Dates Dr. Jay Palomo DO Primary Care Provider Active Start: November 14, 2024 Jaclyn Moss NP, COMPUTER REPAIR ENGINEER-C Referring Provider Active Start: November 14, 2024 Jaclyn Moss NP, COMPUTER REPAIR ENGINEER-C Other Provider Active Start: November 14, 2024 Dr. Glen Reynolds DO Attending Provider Active S tart: November 14, 2024 Team Status: Active Member Role Status Dates Dr. Jay Palomo DO Primary Care Provider Active Start: October 30, 2024 Dr. Glen Reynolds DO Attending Provider Active S tart: October 30, 2024 Jaclyn Moss NP, COMPUTER REPAIR ENGINEER-C Referring Provider Active Start: October 30, 2024 Team Status: Inactive Member Role Status Dates Dr. Jay Palomo DO Primary Care Provider Active Start: February 05, 2025 End: February 05, 2025 Dr. Jay Palomo DO Attending Provider Active Start: February 05, 2025 End: February 05, 2025 FOR RECORDS PERTAINING TO PATIENTS WHO ARE OR HAVE BEEN ENROLLED IN A CHEMICAL DEPENDENCY/SUBSTANCEABUSE PROGRAM, SOME INFORMATION MAY BE OMITTED. This clinical summary was aggregated from multiple sources. Caution should be exercised in using it in the provision of clinical care. This summary normalizes information from multiple sources, and as a consequence, information in this document may materially change the coding, format and clinical context of patient data. In addition, data may be omitted in some cases. CLINICAL DECISIONS SHOULD BE BASED ON THE PRIMARY CLINICAL RECORDS. [employer] provides no warranty or guarantee of the accuracy or completeness of information in this document.
--- NOTE | 2025-07-17 00:25 | RAD_ITS ---
PROCEDURE: CHEST 1 VIEW (PORTABLE) 07/17/2025 REASON FOR EXAM: CHEST PAIN TECHNIQUE: Frontal view of the chest. FINDINGS: Mild prominence of the central pulmonary vasculature may represent mild vascular congestion. Density in the medial aspect of the right lower lung could represent atelectasis or infiltrates. The cardiac silhouette is enlarged, which obscures the left lung base. No acute osseous abnormality. RAD/Chest 1 View (Portable) IMPRESSION: As above. Reading Location: [id number]
[2025-07-17 00:28] LABS: Hematocrit 48.0 % (40-54); Hemoglobin 15.6 g/dL (13.0-16.5); Immature Granulocytes Count 0.040 X10^3/uL (0.0-0.0); Mean Corp Hgb Conc 32.5 g/dL (32-36); Mean Corpuscular Volume 89.6 fL (80-94); Mean Platelet Vol. 10.5 fl (6.2-12.0); NRBC Flagged by Analyzer 0 % (0-5); Platelet Count 227 K/mm3 (150-450); RBC Distribution Width CV 14.9 % (11.6-14.6); RBC Distribution Width SD 49.1 fl (35.1-43.9); Red Blood Count 5.36 M/mm3 (4.6-6.2); White Blood Count 10.5 K/mm3 (4.4-11.0)
[2025-07-17 00:41] LABS: Troponin T High Sensitivity 18 ng/L (<=22)
[2025-07-17 00:42] LABS: Magnesium 2.3 mg/dL (1.5-2.2)
[2025-07-17 00:43] LABS: Anion Gap 14 (5-15); BUN 19 mg/dL (4-19); BUN/Creat Ratio 15.5 RATIO (10-20); Calcium,Total 9.7 mg/dL (7.6-11.0); Carbon Dioxide 25.9 mmol/L (21.0-32.0); Chloride 103 mmol/L (98-108); Estimated Creatinine Clearance 77.65 ml/min (50-250); Glucose 106 mg/dL (70-99); Potassium 4.8 mmol/L (3.3-5.1)
[2025-07-17 01:32] LABS: D-Dimer Quantitative (DVT/PE) 0.93 FEU/ug/m (0.27-0.49)
--- NOTE | 2025-07-17 01:43 | CT_ITS ---
PROCEDURE: CTA CHST, ABD, PEL W AND/OR WO 07/17/2025 REASON FOR EXAM: CHEST PAIN WITH ELEVATED D-DIMER TECHNIQUE: Procedure Code: CTCTA.CHAP.2 Modality: CT Procedure: CTA CHST, ABD, PEL W AND/OR WO Coronal and Sagittal reconstruction series were provided. One or more dose reduction techniques were used (e.g., Automated exposure control, adjustment of the mA and/or kV according to patient size, use of iterative reconstruction technique. CONTRAST: Isovue 370 VOLUME: 100 mL RADIATION DOSE SUMMARY: CTDlvol: 29.53 mGy DLP: 2163 mGycm COMPARISON: Radiograph on 07/17/2025. FINDINGS: Mild cardiomegaly. Mild bilateral basilar atelectatic pulmonary changes. Moderate diffuse spondylosis. Mild prostatomegaly. Bilateral scattered simple renal cysts are noted with the largest measuring 3.8 cm. Uncomplicated colonic diverticulosis. Mild amount of fecal residue in the large bowels. Periumbilical fat containing anterior abdominal wall hernia without incarceration. Normal enhancement of the main pulmonary artery and right and left pulmonary arteries. Normal enhancement of the bilateral peripheral pulmonary arteries. There is no demonstrated pulmonary embolism. Normal thoracic aorta and visualized great vessels. There is no demonstrated aortic dissection. Normal pericardium. Normal mediastinum. Normal hilar regions. Normal visualized trachea and bronchi. Normal pleura. Normal gallbladder and extrahepatic biliary system. Normal spleen. Normal pancreas. Normal bilateral adrenal glands. Normal size of the right kidney. There is no right renal mass. There are no right renal calculi. There is no right hydronephrosis. Normal visualized right ureter. Normal size of the left kidney. There is no left renal mass. There are no left renal calculi. There is no left hydronephrosis. Normal visualized left ureter. Normal visualized stomach. Normal small intestine. The appendix is visualized and appears normal. There is no demonstrated peritoneal fluid. Mild atheromatous plaques of the abdominal aorta. Normal inferior vena cava. Normal retroperitoneum. Normal urinary bladder. There is no pelvic mass lesion or lymphadenopathy. There is no pelvic fluid. CT/CTA Chst, Abd, Pel W and/or WO IMPRESSION: Mild cardiomegaly. Mild bilateral basilar atelectatic pulmonary changes. Moderate diffuse spondylosis. Mild prostatomegaly. Bilateral scattered simple renal cysts are noted with the largest measuring 3.8 cm. Uncomplicated colonic diverticulosis. Mild amount of fecal residue in the large bowels. Periumbilical fat containing anterior abdominal wall hernia without incarcerati on. No CT evidence of pulmonary embolus or aortic dissection. Reading [facility]
[2025-07-17] MEDS: 0.9% Normal Saline (500mL Bag) 500 ML 999 ML IV (02:08)
[2025-07-17 02:19] LABS: Troponin T High Sens 2 HR 18 ng/L (<=22)
--- NOTE | 2025-07-17 03:36 | EX.ED.DYSGE1 ---
HPI History of Present Illness Chief Complaint: Chest Pain Informant: patient Narrative Narrative: Patient is a 74-year-old male with past medical history of hypertension hyperlipidemia and COPD. He states he was sitting on the couch watching TV roughly 2 hours prior to arrival when he noted right sided chest discomfort with radiation towards the jaw. He states there was no associated nausea vomiting diaphoresis or shortness of breath. He reports has been no recent trauma or excessive activity. He denies any fevers chills or sick contacts or sick symptoms. He states the pain would not resolve however and with concern this could be cardiac in nature presents for evaluation. [facility] Medical History Hypothyroidism Gout COPD (chronic obstructive pulmonary disease) Traumatic rhabdomyolysis Home Medications ?Medication ?Instructions ?Recorded ?Last Taken ?Type Pravastatin Sodium 40 mg PO DAILY CHOLESTEROL 05/03/14 05/10/19 History citalopram 20 mg tablet 20 mg PO DAILY MOOD 05/11/19 05/15/19 08:25 History levothyroxine 50 mcg tablet 50 mcg PO DAILY THYROID 05/11/19 05/15/19 06:00 History allopurinol 100 mg tablet 100 mg PO DAILY 12/23/20 Unknown History albuterol sulfate 2.5 mg/3 mL 2.5 mg (3 mL) inhalation Q4H PRN 05/11/21 Unknown Rx (0.083 %) solution for nebulization shortness of breath or wheezing #180 mL lisinopril 20 tab PO 10/18/23 Unknown History mg-hydrochlorothiazide 12.5 mg tablet albuterol sulfate 90 mcg/actuation 2 puff inhalation Q4H PRN 02/22/24 Unknown Rx aerosol inhaler (Ventolin HFA) shortness of breath or wheezing #18 grams latanoprost 0.005 % eye drops drp ophthalmic (eye) 10/17/24 Unknown History amlodipine 5 mg tablet 5 mg PO DAILY 07/16/25 Unknown History Allergy/AdvReac Type Severity Reaction Status Date / Time ragweed pollen Allergy Other Verified 07/16/25 23:46 Family History (Reviewed 10/17/24 @ 14:55 by Jaclyn Moss PLUGGING MACHINE OPERATOR, PLUGGING MACHINE OPERATOR-C) Mother Emphysema lung Brother Cancer Sister Myocardial infarction Surgical History H/O cataract removal with insertion of prosthetic lens Social History (Reviewed 10/17/24 @ 14:55 by Jaclyn Moss PLUGGING MACHINE OPERATOR, PLUGGING MACHINE OPERATOR-C) Smoking Status: Never smoker ROS ROS ED Constitutional Constitutional ED: Denies chills or fever(s) Eyes Eyes: Denies blurry vision or change in vision ENT ENT ED: Denies sore throat Cardiovascular Cardiovascular: Reports chest pain; Denies palpitations or racing heartbeat Respiratory/Chest Respiratory/Chest: Denies cough or dyspnea Gastrointestinal Gastrointestinal: Denies abdominal pain, diarrhea, nausea or vomiting Musculoskeletal Musculoskeletal: Reports neck pain; Denies back pain Integumentary Denies rash Neurologic Neurologic: Denies headache(s) Hematologic/Lymphatic Hematologic/Lymphatic: Denies easy bleeding or easy bruising EXAM Physical Exam Const Vital Signs: 07/16/25 23:46 07/16/25 23:48 07/16/25 23:48 Temperature 97.6 F L Temperature Source Oral Pulse Rate 77 77 Respiratory Rate 27 H 28 H Respiratory Effort Short of Breath Blood Pressure 186/87 H Blood Pressure Mean 120 Pulse Ox 99 95 Oxygen Delivery Method Room Air 07/17/25 00:00 07/17/25 00:15 07/17/25 00:21 Temperature Temperature Source Pulse Rate 71 79 75 Respiratory Rate 33 H 28 H 34 H Respiratory Effort Blood Pressure 155/88 H Blood Pressure Mean 108 Pulse Ox 97 92 99 Oxygen Delivery Method 07/17/25 00:30 07/17/25 00:45 07/17/25 01:00 Temperature Temperature Source Pulse Rate 77 74 81 Respiratory Rate 26 H 20 H 28 H Respiratory Effort Blood Pressure 162/86 H 147/84 H 150/97 H Blood Pressure Mean 108 103 108 Pulse Ox 100 99 99 Oxygen Delivery Method 07/17/25 02:00 07/17/25 03:00 07/17/25 04:00 Temperature Temperature Source Pulse Rate 83 76 88 Respiratory Rate 22 H 18 16 Respiratory Effort Blood Pressure 166/87 H 164/87 H Blood Pressure Mean 113 112 Pulse Ox 93 97 95 Oxygen Delivery Method Room Air Room Air 07/17/25 04:00 Temperature 97.8 F Temperature Source Pulse Rate 88 Respiratory Rate 16 Respiratory Effort Blood Pressure 164/87 H Blood Pressure Mean 112 Pulse Ox 95 Oxygen Delivery Method Positive well nourished, well developed and obese General Appearance ED: well developed; Negative for pallor Nutritional Appearance: obese HEENT HEENT Narrative: Normocephalic atraumatic Eyes PERRL and EOMs intact bilaterally General Eye ED: Negative for scleral icterus Neck supple and no JVD Chest Wall palpation of chest normal Chest Narrative: No bony deformity or subcutaneous emphysema noted Resp Resp Narrative: Patient is tachypneic and breath sounds are diminished throughout with faint expiratory wheeze in the bilateral bases No nasal flaring or retractions or accessory muscle use Cardio regular rate and regular rhythm Rate: other Other Details: Heart is regular rate and rhythm without murmurs rubs or gallop Radial and carotid pulses are equal and symmetric No carotid bruit noted GI normal to inspection, nondistended, normoactive bowel sounds, non-tender, non-distended and no masses GI Narrative: No voluntary guarding or rigidity or pulsatile mass Auscultation: normoactive bowel sounds Palpation: soft Extremity normal to inspection Extremity Narrative: +1-2 pitting edema to the bilateral lower extremities that is equal and symmetric Negative Homans' sign bilaterally Neuro oriented x3, CN's II-XII intact bilaterally and no sensory deficits noted Sensorium / Orientation: alert Motor Exam: strength 5/5 throughout Psych mental status grossly normal Skin no rashes or lesions noted and no wounds General Skin Exam: Negative for jaundice or pallor MDM MDM MDM Narrative Medical decision making narrative: Patient arrived to the ER hypertensive and slight tachypneic but otherwise with stable vitals. He does have multiple risk factors for coronary artery disease and therefore in order to rule out ACS versus cardiac dysrhythmia basic blood work was obtained. The EKG revealed no STEMI or ischemic changes and while on the surveillance monitor he had no cardiac dysrhythmia. Blood work revealed no signs of acute blood loss anemia or acute kidney injury. No clinically significant electrolyte abnormalities were present. Because the patient discussed radiation of the pain towards her neck I did have concern for potential dissection or atypical presentation for pulmonary embolus. However he is low risk for this and therefore I ordered a D-dimer. The D-dimer was elevated for his age. I therefore ordered a CTA of the chest abdomen and pelvis. This revealed no sign of dissection or pulmonary embolus or pneumonia or volume overload. On reevaluation the patient's pain has resolved. His vitals are stable. His initial troponin was 18 with a delta remained flat at 18 going against ACS. Therefore with resolution of his pain normal troponins normal EKG and negative laboratory studies and CTA I do not feel the need for inpatient evaluation the patient is otherwise safe for discharge. We did discuss that he has multiple risk factors for coronary artery disease and therefore should follow-up with his family doctor to discuss outpatient stress testing History & Record Review Discussion w/independent historian: Patient Lab Data Attestation: I reviewed the patient's lab results. Labs: Laboratory Results - last 24 hr 07/16/25 07/17/25 23:48 01:50 WBC 10.5 RBC 5.36 Hgb 15.6 Hct 48.0 MCV 89.6 MCH 29.1 MCHC 32.5 RDW Std Deviation 49.1 H RDW Coeff of Salud 14.9 H Plt Count 227 MPV 10.5 Immature Gran % (Auto) 0.400 Neut % (Auto) 71.7 H Lymph % (Auto) 18.6 L Hendricks % (Auto) 6.8 Eos % (Auto) 2.0 Baso % (Auto) 0.5 Absolute Neuts (auto) 7.5 Absolute Lymphs (auto) 1.95 Nucleated RBC % 0 D-Dimer Quant (PE/DVT) 0.93 H* Sodium 142 Potassium 4.8 Chloride 103 Carbon Dioxide 25.9 Anion Gap 14 BUN 19 Creatinine 1.19 Estim Creat Clear Calc 77.65 Est GFR (MDRD) Non-Af 63 BUN/Creatinine Ratio 15.5 Glucose 106 H Calcium 9.7 Magnesium 2.3 H Troponin T High Sens 18 Troponin T Hi Sens 2 Hr 18 Radiography Diagnostic Testing: Clinical Impression(s) from Imaging Studies Chest X-Ray 07/17/25 00:25 IMPRESSION: As above. Reading Location: [id number] Chest/Abdomen/Pelvis CTA 07/17/25 01:43 IMPRESSION: Mild cardiomegaly. Mild bilateral basilar atelectatic pulmonary changes. Moderate diffuse spondylosis. Mild prostatomegaly. Bilateral scattered simple renal cysts are noted with the largest measuring 3.8 cm. Uncomplicated colonic diverticulosis. Mild amount of fecal residue in the large bowels. Periumbilical fat containing anterior abdominal wall hernia without incarceration. No CT evidence of pulmonary embolus or aortic dissection. Reading Location: [place] [id number] Chest x-ray as interpreted by the emergency medicine physician reveals cardiomegaly with mild pulmonary vascular congestion and atelectasis in the right lower lobe Discharge Plan Triage Chief Complaint: Chest Pain ED Provider: Giovanny Ponce Dx/Rx/DC Orders Clinical Impression: Nonspecific chest pain, Obstructive sleep apnea, HTN (hypertension), Hyperlipidemia, Hypothyroidism, Morbid obesity Instructions: ED Chest Pain, Uncertain Cause Prescriptions: No Action allopurinol 100 mg tablet 100 mg PO DAILY albuterol sulfate 2.5 mg /3 mL (0.083 %) solution for nebulization 2.5 mg inhalation Q4H PRN (Reason: shortness of breath or wheezing) Qty: 180 3RF lisinopril-hydrochlorothiazide 20-12.5 mg tablet PO latanoprost 0.005 % drops ophthalmic (eye) Pravastatin Sodium 40 MG tablet 40 mg PO DAILY Patient Comments: cholesterol citalopram 20 MG tablet 20 mg PO DAILY levothyroxine 50 MCG tablet 50 mcg PO DAILY amlodipine 5 mg tablet 5 mg PO DAILY albuterol sulfate [Ventolin HFA] 90 mcg/actuation HFA aerosol inhaler 2 puff inhalation Q4H PRN (Reason: shortness of breath or wheezing) Qty: 18 6RF Primary Care Provider: Jay Palomo Referrals: Jay Palomo DO [Primary Care Provider, Family Practice] Activity Restrictions/Additional Instructions: Your workup today revealed no abnormal heart rhythm or signs of active heart damage. Your CT scan revealed no sign of pneumonia, pneumothorax/hole in your lung, or blood clot, or tear/dissection. Please continue all your home medications as directed by your doctor and return to the ER should you have any further concerns Print Language: Polish Disposition Disposition: Home, Self Care Discharge Date/Time: 07/17/25 04:05
== END 2025-07-17 04:05 | disposition home or self-care (01) ==
PROVIDERS: Emergency Provider Emergency Medicine; PCP Family Medicine; Visit Provider Emergency Medicine
DX: R07.89 Other chest pain (principal); E66.01 Morbid (severe) obesity due to excess calories; Z68.43 Body mass index [BMI] 50.0-59.9, adult; I10 Essential (primary) hypertension; E78.5 Hyperlipidemia, unspecified; E03.9 Hypothyroidism, unspecified; G47.33 Obstructive sleep apnea (adult) (pediatric); Z79.890 Hormone replacement therapy; Z79.899 Other long term (current) drug therapy
CPT/HCPCS: 71045; 71275; 74174; 80048; 83735; 84484; 85025; 85379; 93005; 96360; 99283; Q9967; A4216